=== PATIENT | female | born 1945 | race Caucasian/White ===

== ENCOUNTER → 2016-07-13 | Day surgery (SDC) | payer OTHER ==
[~2016-07-13] VITALS: Ht 165.1 cm; Wt 122.7 kg
[~2016-07-13] MED LIST: ASPI81TA28 PO; CARV25TA2 PO; CHOL20005 PO; DOCU100C PO; FENTANYL CITRATE INJ 50 MCG/1 ML 2 ML VIAL ONE; FRS/40 PO; GLC/500 PO; HEPARIN SOD (PORCINE) 1000 UNIT/ML 10 ML VIAL ONE; IPRA1AER2 INH; LORC1TAB PO; LOSA50TA54 PO; MIDAZOLAM HCL 1 MG/ML 2ML VIAL ONE; NITROGLYCERIN/D5W 100MCG/ML 20ML SYR ONE; NiCARDipine HCL INJ 2.5 MG/ML 10 ML AMP ONE; OXYC-643 PO; PRM625 PO; RANI300T2 PO; SERT1TAB68 PO; SIMV10TA5 PO; TRAM-10 PO; TRAZ50TA35 PO; TURM500T PO; VERA1TAB52 PO
[2016-07-13 07:14] VITALS: BP 125/75; PULSE 67; TEMP 36.6; O2SAT 96; Ht 165.1 cm; Wt 122.7 kg
--- NOTE | 2016-07-13 08:04 | Procedure Note ---
Pre-Mod Sedation Assessment General Date of Moderate Sedation: Jul 13, 2016. Vital Signs: Vital Signs Past 12 Hours Date Time Temp Pulse Resp B/P Pulse Ox O2 Delivery O2 Flow Rate FiO2 07/13/16 07:14 36.6 67 16 125/75 96 Room Air Review Cardiovascular: regular rate, rhythm, no JVD, + pertinent finding (1+ edema, left > right) Abdomen: normal bowel sounds, non tender, soft Lungs: chest non-tender, lungs clear Airway Class: III Pre-Sedation Airway Assessment Oral Cavity: WNL Able to Visualize Vocal Cords: No Short Thick Neck: No Hx of Sleep Apnea: No Smoking Status: Never Smoker Mallampati Classification: Class III ASA Classification: Class II Procedure Planning Contraindications-for Mod Sed: None Yes Notes The planned sedation has been discussed with the patient and consent obtained. I have identified the patient, determined the appropriateness of sedation and have assessed the patient immediately prior to the procedure. All medicine(s) and interventions are by my order.
--- NOTE | 2016-07-13 08:44 | Procedure Note ---
Post-Mod Sedation Assessment General Date of Moderate Sedation Jul 13, 2016. Vital Signs: Vital Signs Past 12 Hours Date Time Temp Pulse Resp B/P Pulse Ox O2 Delivery O2 Flow Rate FiO2 07/13/16 07:14 36.6 67 16 125/75 96 Room Air Review - Discharge Criteria Vital Signs Stable: Yes Alert/Oriented/Conversant: Yes Returned to Baseline Mental St: Yes Nausea Absent/Minimal: Yes Pain/Discomfort/Absent/Minimal: Yes Normal/Baseline Respirations: Yes Active Bleeding?: No Pt Received D/C Instructions: N/A Prescriptions Given: None Specific Proced. D/C Criteria Distal Pulses Present (Cardiac: Yes Groin site assessed-Card Cath: N/A Voided Prior To Discharge: N/A Discharged Patients Adult Escort/Transportation: Yes
--- NOTE | 2016-07-13 08:49 | Discharge Instructions ---
Discharge Instructions Procedure Procedure Date: Jul 13, 2016. Reason for Visit: Abnormal Stress Test. Discharge Discharge Date: Jul 13, 2016. Discharge Diagnosis: Normal coronary arteries Diastolic dysfunction. Last Recorded Wt (Kilograms): 122.7 Medications Stopped Medication(s): Hold Metformin for 48 hrs Anesthesia Post Anesthesia Instructions: With IV Sedation: * Do not drive today. * Can resume driving tomorrow * Do not make important decisions or sign legal documents today. * Call business services specialist sales for: 1. Temperature elevations greater than 101 degrees F. 2. Uncontrollable pain. 3. Excessive bleeding. 4. Persistent nausea and vomiting. 5. Medication intolerance (nausea, vomiting or rash). * For nausea and vomiting use only clear liquids such as: tea, soda, bouillon until nausea subsides, then gradually increase diet as tolerated. * If you have any concerns or questions, call your business services specialist sales's office. If physician is unavailable and it is an emergency, call 911 or go to the nearest emergency room. Instructions Activity Recommendations: limitations as noted below Recommended Home Diet: resume previous diet Allergies: Coded Allergies: Celecoxib (Unverified Allergy, Mild, constant chest pain, 08/14/10) Chlorhexidine (Unverified Allergy, Mild, red rash and itching, 08/14/10) Pineapple (Unverified Allergy, Unknown, RESPIRATORY DISTRESS, 07/15/10) Uncoded Allergies: ANANASE (Allergy, Unknown, RESPIRATORY DISTRESS, 07/15/10) RUG GLUE (Allergy, Unknown, ANAPHYLATIC SHOCK, 07/15/10) Follow Up Additional Instructions: ACTIVITY RECOMMENDATIONS: It is common to feel weak and fatigue for a few days. * Do not drive or operate any motorized equipment for the next three days. * Limit stair usage (2 or 3 trips a day only) for the next three days. * Do not lift anything heavier than 10 pounds for the next three days. * Do not engage in vigorous exercise or any sports for the next five days. * You may shower the day after your procedure, but do not immerse the area for three days. Cleanse the site gently with soap and water. SPECIAL CARE INSTRUCTIONS: * You may replace the pressure dressing or band-aid the morning after the procedure. * After your procedure, it is normal to have a small bruise or small lump at the site. Examine your site daily for any change in the bruise or lump, redness, swelling, drainage or numbness. Notify your doctor if any change. BLEEDING: * If there is a small amount of bleeding at the site, lie down and apply firm pressure with a clean cloth for ten minutes. When the bleeding stops, lie quietly keeping the procedure limb straight for six hours. Notify your doctor as soon as possible. * If the bleeding does not stop after ten minutes or if there is a large amount of bleeding or spurting, call 911 immediately. Continue to lie down and hold firm pressure until help arrives. SKIN IRRITATION: * You may experience some redness and/or swelling in the area where radiation was administered. If any skin irritation occurs, please contact your family physician. FOLLOW UP VISIT: Keep any scheduled doctor appointments. Follow-up with: Scheduled follow-up with Dr. Zach Driver Recommendations: Call your doctor if: * Temperature above 101 degrees * Pain not relieved by pain medicine ordered * There is increased drainage or redness from any incision * You have any unanswered questions or concerns. Your Doctors Instructions noted above were prepared by provider Phoenix Serrano. Patient Signature Section: Patient Instructions Signature Page Jill Rizo Patient (or Guardian) Signature/Date: I have read and understand the instructions given to me by my caregivers. Caregiver/RN/Doctor Signature/Date: The above-named patient and/or guardian has received patient instructions on this date. + Original Patient Signature Page (only) stays with chart. Please make copy for patient.
--- NOTE | 2016-07-13 09:19 | Cardiac Catheterization ---
Procedure Note Procedure Date Jul 13, 2016. Pre-Procedure Diagnosis Positive Stress Test AUC Score 7 Post-Procedure Diagnosis Normal Coronary Arteries Procedure(s) Performed Coronary Angiography, Left Heart Cath Torch Burner Dr. Serrano Youth Minister(s) Santana Estimated Blood Loss 15 Medication(s) Fentanyl, Heparin, Nitroglycerin, Versed, Lidocaine 1% Summary of Findings Indication: Atypical chest pain, positive stress test Access: 6Fr Slender sheath Catheters: Willis, JL3.5, Pigtail Findings: LM - Normal LAD - Medium caliber vessel with distal luminal irregularities before reaching apex Circumflex - Medium caliber vessel, tortuous, otherwise angiographically normal RCA - Dominant, large caliber vessel with only luminal irregularities LVEDP - 22 LVEF - 50-55%. No regional wall motion abnormalities, LVH. Heart almost "spade " shaped. Arterial Closure: TR Band Summary: 1. Angiographically normal coronary arteries 2. Normal LV systolic function. LVEF 50-55%. Diastolic dysfunction. Recommendations: Continue home antihypertensives Continue PRN diuretics - dose of lasix today. Continued risk factor modification Further evaluation with PCP for non-cardiac causes of current symptoms. Hemodynamics Rest Ao: 136/78 Final Ao: 150/74 LV: 147/22 Specimens None Radiation Exposure (mGy) 465 Contrast (mls) 60 Fluids (cc crystalloids) 40 Drains none Anesthesia moderate Procedural Complication(s) None Disposition Spice Grinder Holding/Recovery ACC Data Cardiac Status Clinical evaluation leading to the procedure CAD Presntation: Positive Stress Test Anginal Classification: CCS III Heart Failure: No, NYHA Class: CCS I Cardiogenic Shock w/in 24Hrs: No Cardiac Arrest w/in 24Hrs: No Imaging studies past 6 months: Yes Stress studies past 6 months: Yes Stress Echocardiogram: Yes - Positive Stress Testing w/SPECT MPI: No Cardiac CTA: No Coronary Anatomy Dominant: Right Left Main (% Stenosis): Normal LAD (% Stenosis): Normal Circumflex (% Stenosis): Normal RCA (% Stenosis): Normal R PDA (% Stenosis): Normal R PL1 (% Stenosis): Normal Left Ventricular Angiography EF (%): 50 Mitral Regurgitation: None Aortography Aortic Regurgitation: None Diagnostic Physician's Name: Janes Serrano MD Closure Device Percutaneous Entry Location: Radial Closure Device: Radial Band Recommendations: Medical therapy and/or Counseling Intraprocedure Events Significant Dissection: No Perforation: No
[2016-07-13 10:50] VITALS: BP 138/66; PULSE 70; O2SAT 95
== END | disposition home or self-care (01) ==
LOC: C.CATH 06:59
PROVIDERS: ATTEND Internal Medicine Interventional Cardiology
DX: R94.39 Abnormal result of other cardiovascular function study (principal); R07.89 Other chest pain; I42.9 Cardiomyopathy, unspecified; I12.9 Hypertensive chronic kidney disease with stage 1 through stage 4 chronic kidney disease, or unspecified chronic kidney disease; N18.9 Chronic kidney disease, unspecified; I67.82 Cerebral ischemia; E78.5 Hyperlipidemia, unspecified; K21.9 Gastro-esophageal reflux disease without esophagitis; G35 Multiple sclerosis; M35.00 Sjogren syndrome, unspecified; E55.9 Vitamin D deficiency, unspecified; Z98.890 Other specified postprocedural states; Z90.710 Acquired absence of both cervix and uterus

== ENCOUNTER 2017-06-01 15:47 | Inpatient (IN) | payer OTHER ==
[2017-06-01] VITALS (15 sets, daily range): BP systolic 99–149; BP diastolic 59–80; PULSE 80–88; TEMP 36.5–36.9; O2SAT 96–100; BMI 46.1
[~2017-06-01] VITALS: Ht 170.2 cm; Wt 128.8 kg
[~2017-06-01 15:47] MED LIST changes: -FENTANYL CITRATE INJ 50 MCG/1 ML 2 ML VIAL ONE; -HEPARIN SOD (PORCINE) 1000 UNIT/ML 10 ML VIAL ONE; -IPRA1AER2 INH; -LORC1TAB PO; -MIDAZOLAM HCL 1 MG/ML 2ML VIAL ONE; -NITROGLYCERIN/D5W 100MCG/ML 20ML SYR ONE; -NiCARDipine HCL INJ 2.5 MG/ML 10 ML AMP ONE; -VERA1TAB52 PO
[2017-06-01] MEDS ORDERED: SODIUM CHLORIDE 0.9% 1000ML 1,000 ML IV STA (16:04)
[2017-06-01] MEDS ORDERED: DOPamine 400MG / 250ML D5W ONE (16:07)
[2017-06-01] MEDS ORDERED: DOPAMINE 400MG / D5W IV PRN (16:15)
[2017-06-01] MEDS ORDERED: RAPID SEQUENCE INDUCTION BAG ONE (16:18)
[2017-06-01 16:23] LABS: BASO % 0.9 %; BASO ABS # 0.08 K/uL (0-0.2); EOS ABS # 0.34 K/uL (0-0.5); HEMATOCRIT 40.7 % (37-47); HEMOGLOBIN 13.1 g/dL (12.0-16.0); IG# 0.01 K/uL (0.00-0.02); LYMPH % 19.1 %; LYMPH ABS # 1.62 K/uL (1.2-3.4); MEAN CELL VOLUME 95.5 fL (80-100); MEAN CORPUSCULAR HEMOGLOBIN 30.8 pg (25-34); MEAN CORPUSCULAR HGB CONC 32.2 g/dl (32-36); MEAN PLATELET VOLUME 10.1 fL (7.4-10.4); MONO % 7.9 %; MONO ABS # 0.67 K/uL (0.11-0.59); NEUT ABS # 5.78 K/uL (1.4-6.5); PLATELET COUNT 209 K/uL (130-400); RED CELL DISTRIBUTION WIDTH CV 14.3 % (11.5-14.5); RED CELL DISTRIBUTION WIDTH SD 49.7 fL (36.4-46.3)
[2017-06-01] MEDS ORDERED: CALCIUM GLUCONATE 10% 10 ML VIAL IV ONE (16:23)
[2017-06-01] MEDS ORDERED: FENTANYL CITRATE INJ 50 MCG/1 ML 2 ML VIAL ONE ×2 (16:26→16:53)
[2017-06-01] MEDS ORDERED: MIDAZOLAM HCL 1 MG/ML 2ML VIAL ONE (16:26)
[2017-06-01 16:44] LABS: BLOOD UREA NITROGEN 25 mg/dl (7-18); CALCIUM 9.7 mg/dl (8.5-10.1); CARBON DIOXIDE 25 mmol/L (21-32); CREATININE 1.69 mg/dl (0.60-1.20); GLUCOSE 136 mg/dl (70-99); POTASSIUM 4.4 mmol/L (3.5-5.1); SODIUM 141 mmol/L (136-145)
[2017-06-01 16:49] LABS: CKMB 1.2 ng/ml (0.5-3.6)
--- NOTE | 2017-06-01 16:56 | DIAGNOSTIC IMAGING REPORT ---
CHEST ONE VIEW PORTABLE CLINICAL HISTORY: Chest Pain dyspnea COMPARISON STUDY: 10/21/2014 FINDINGS: Endotracheal tube positioned 4 cm above the germaine. Slight bronchovascular prominence. No pneumothorax. No focal infiltrate. Mild cardiomegaly. IMPRESSION: Endotracheal tube 4 cm both germaine. Mild prominence of pulmonary vasculature. The above report was generated using voice recognition software. It may contain grammatical, syntax or spelling errors. Electronically signed by: Shree Aguirre M.D. 06/01/2017 4:55 PM Dictated Date/Time: 06/01/2017 4:54 PM
[2017-06-01] MEDS ORDERED: MIDAZOLAM 125MG/250ML D5W 250 ML IV PRN (17:00)
--- NOTE | 2017-06-01 17:13 | Cardiology Consultation ---
Cardiology Consultation Date of Consultation: Jun 01, 2017. Reason for Consultation: Complete heart block Pt evaluation today including: conversation w/ patient, physical exam, lab review, review of studies, conversation w/ attending History of Present Illness This is a 72-year-old woman who has a history of nonischemic cardiomyopathy diagnosed in 2007 with a catheterization showing normal coronary arteries in July 2016. Her ejection fraction improved with medical therapy, at catheterization July 2016 it was felt to be 50-55%. In addition she has a left lower extremity DVT and hematology has recommended lifelong anticoagulation. She is therefore been maintained on eliquis and losartan. She has been maintained on carvedilol 25 mg twice a day as well as Eliquis. Today she began to feel very weak and short of breath while walking, had to sit down and was brought to the emergency room. In the emergency room she was found to be in complete heart block with a heart rate in the 20s. The heart rate did not respond well to dopamine, she was also hypotensive with a blood pressure initially in the 60s which did improve somewhat with dopamine. She was conscious at that time although did not feel well, however she had episode of asystole in the emergency room and external pacing was applied. She is very uncomfortable with external pacing but regained consciousness quickly. The temporary external pacing was stopped and she again began to become unresponsive. It was therefore restarted, she is intubated and sedated. Prior to intubation and while she was awake she agreed to have temporary pacing performed and seemed aware of the procedure. There was no family available and this is considered an emergency procedure. She was therefore taken to the laboratory equipment cleaner for temporary pacing. Past Medical/Surgical History Nonischemic cardiomyopathy Obesity Left leg DVT Social History Smoking Status: Never Smoker History of Alcohol Use: No Review of Systems Constitutional: No fever, No weight loss, No weakness Respiratory: + dyspnea on exertion, No cough, No wheezing, No shortness of breath Cardiac: + see HPI, + problem reported (extreme weakness and fatigue), No chest pain, No orthopnea, No PND, No edema, No palpitations Abdomen: No pain, No nausea, No vomiting, No diarrhea, No GI bleeding Female : No problem reported Neurologic: No paralysis, No numbness/tingling, No balance problems Heme: No abnormal bleeding/bruising, No clotting problems Endo: No fatigue Skin: No problem reported All Other Systems: Reviewed and Negative Allergies Coded Allergies: Celecoxib (Unverified Allergy, Mild, constant chest pain, 08/14/10) Chlorhexidine (Unverified Allergy, Mild, red rash and itching, 08/14/10) Pineapple (Unverified Allergy, Unknown, RESPIRATORY DISTRESS, 07/15/10) Uncoded Allergies: ANANASE (Allergy, Unknown, RESPIRATORY DISTRESS, 07/15/10) RUG GLUE (Allergy, Unknown, ANAPHYLATIC SHOCK, 07/15/10) Medications Current Inpatient Medications Medications (Trade) Dose Ordered Sig/Zac Route Start Time Stop Time Status Last Admin Dose Admin Dopamine HCl/ Dextrose 250 ml @ 0 mls/hr Q0M PRN IV 06/01/17 16:15 07/01/17 16:14 Midazolam HCl 250 ml @ 0 mls/hr Q0M PRN IV 06/01/17 17:00 07/01/17 16:59 Physical Exam Vital Signs Past 12 Hours Date Time Temp Pulse Resp B/P (MAP) Pulse Ox O2 Delivery O2 Flow Rate FiO2 06/01/17 17:01 100 06/01/17 16:17 69 06/01/17 15:58 27 Constitutional: General Apperance: obese Level of Distress: acutely ill Psychiatric: Mental Status: anxious Head: normocephalic Eyes: EOM: EOMI ENMT: normal ENT inspection, hearing grossly normal Neck: supple, no masses Lungs: Respiratory effort: no dyspnea, good air movement Auscultation: breath sounds normal, no wheezing Cardiovascular: Heart Auscultation: RRR, no murmurs, no rubs, no gallops Peripheral Pulses: Bruits: none appreciated Abdomen: Bowel Sounds: normal Inspection & Palpation: soft, no tenderness, guarding & rebound, no masses Musculoskeletal: normal strength (5/5 throughout) Extremities: no edema Neurologic: Cranial Nerves: grossly intact Sensation: grossly intact Data Laboratory Results: Last 24 Hours Test 06/01/17 16:05 White Blood Count 8.50 K/uL Red Blood Count 4.26 M/uL Hemoglobin 13.1 g/dL Hematocrit 40.7 % Mean Corpuscular Volume 95.5 fL Mean Corpuscular Hemoglobin 30.8 pg Mean Corpuscular Hemoglobin Concent 32.2 g/dl Platelet Count 209 K/uL Mean Platelet Volume 10.1 fL Neutrophils (%) (Auto) 68.0 % Lymphocytes (%) (Auto) 19.1 % Monocytes (%) (Auto) 7.9 % Eosinophils (%) (Auto) 4.0 % Basophils (%) (Auto) 0.9 % Neutrophils # (Auto) 5.78 K/uL Lymphocytes # (Auto) 1.62 K/uL Monocytes # (Auto) 0.67 K/uL Eosinophils # (Auto) 0.34 K/uL Basophils # (Auto) 0.08 K/uL RDW Standard Deviation 49.7 fL RDW Coefficient of Variation 14.3 % Immature Granulocyte % (Auto) 0.1 % Immature Granulocyte # (Auto) 0.01 K/uL Sodium Level 141 mmol/L Potassium Level 4.4 mmol/L Chloride Level 109 mmol/L Carbon Dioxide Level 25 mmol/L Anion Gap 7.0 mmol/L Blood Urea Nitrogen 25 mg/dl Creatinine 1.69 mg/dl Estimated GFR () 34.8 Estimated GFR (Non- 30.0 BUN/Creatinine Ratio 14.7 Random Glucose 136 mg/dl Calcium Level 9.7 mg/dl Total Creatine Kinase 48 U/L Creatine Kinase MB 1.2 ng/ml Creatine Kinase MB Ratio 2.5 Troponin I < 0.015 ng/ml EKG: An electrocardiogram on arrival 06/01/2017 at 1600 shows sinus rhythm at 85 bpm with complete heart block and a ventricular rhythm at 28 bpm. This appears to be subcutaneous junctional with a right bundle branch pattern and left anterior fascicular block. Assessment & Plan #1. 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 It is possible CHB is aggravated by beta-blockade but she has been on the same dose for a long time. I would hold beta-blockade with a temporary pacemaker in place and see whether conduction returns. If it does a decision last he made as to whether she needs a beta-blockade for cardiomyopathy or not. If it does not resolve then she will need a permanent pacemaker. #2. Cardiomyopathy: As of July of this year her cardiomyopathy has resolved with normalization of her ejection fraction. She had normal coronary arteries at catheterization. Ideally we would maintain beta blockade and ARB therapy, if we're required to hold beta-blockade will have to watch closely for recurrence of her cardiomyopathy. If she needs a pacemaker then I would continue the beta- blockade. Thank you for allowing me to participate in her care.
--- NOTE | 2017-06-01 17:39 | History and Physical ---
History & Physical Date & Time of Service: Jun 01, 2017 at 17:39 . Chief Complaint: Complete Heart Block Primary Care Physician: Maryjo Hernandez M.D. History of Present Illness Source: hospital records 72 year-old female followed by Dr. Hernandez. History of nonischemic cardiomyopathy, hypertension, DM, and other problems noted below. Per history from ED provider: Developed lightheadedness, generalized weakness, diaphoresis, palpitations earlier today. Pulse at home was 24 per patient's assessment; she was unable to obtain a BP. Brought to ED for evaluation. Pulse rate upon arrival was in the 20's and BP was 62/40. EKG demonstrated 3rd degree heart block. Started on dopamine without significant improvement. External pacemaker applied, but extremely uncomfortable and had to be discontinued. Cardiology consulted for emergency pacemaker placement. Patient was intubated in ED before being taken to minilab operator for temporary pacemaker insertion. Temporary pacemaker inserted via right femoral approach with good capture. Admitted to ICU after procedure. Extubated soon after arrival to ICU by cake icer. . Past Medical/Surgical History Chronic and Resolved Medical Problems: (1) Cardiomyopathy, nonischemic Status: Chronic (2) Diabetes mellitus, type 2 Status: Chronic (3) Dyslipidemia Status: Chronic (4) GERD (gastroesophageal reflux disease) Status: Chronic (5) History of deep venous thrombosis Status: Chronic (6) Hypertension Status: Chronic (7) Multiple sclerosis Status: Chronic Surgical Problems: (1) History of bowel resection Status: Chronic (2) Status post cardiac catheterization Permanent Comment: 07/13/[address] [facility] [address] Serrano - normal coronaries Status: Chronic (3) Status post hysterectomy Status: Chronic (4) Status post left hip replacement Status: Chronic . Family History FATHER Coronary artery disease MOTHER CHF (congestive heart failure) Social History Smoking Status: Unknown if Ever Smoked Immunizations History of Influenza Vaccine: Unknown History of Tetanus Vaccine?: Unknown History of Pneumococcal: Unknown History of Hepatitis B Vaccine: Unknown Allergies Coded Allergies: Celecoxib (Unverified Allergy, Mild, constant chest pain, 08/14/10) Chlorhexidine (Unverified Allergy, Mild, red rash and itching, 08/14/10) Pineapple (Unverified Allergy, Unknown, RESPIRATORY DISTRESS, 07/15/10) Uncoded Allergies: ANANASE (Allergy, Unknown, RESPIRATORY DISTRESS, 07/15/10) RUG GLUE (Allergy, Unknown, ANAPHYLATIC SHOCK, 07/15/10) Home Medications Scheduled Amoxicillin (Amoxil), 500 MG PO DIRECTED Apixaban (Eliquis), 2.5 MG PO BID Carvedilol (Coreg), 25 MG PO BID Cholecalciferol (Vitamin D3), 1,000 INTER.UNIT PO DAILY Isosorbide Mononitrate Ext Rel (Imdur Ext Rel), 30 MG PO DAILY Losartan Potassium (Cozaar), 50 MG PO DAILY Metformin Hcl (Glucophage), 500 MG PO BID Prednisolone Acetate (Prednisolone Acetate), 1 DROP OPB DAILY Ranitidine (Zantac), 150 MG PO BID Sertraline Hcl (Zoloft), 100 MG PO QAM Simvastatin (Zocor), 10 MG PO HS Turmeric (Curcuma Longa) (Turmeric), 1 CAP PO DAILY Scheduled PRN Artificial Tear Solution (Artificial Tears), 1 DROPS OP QID PRN for PRN Docusate Sodium (Stool Softener), 200 MG PO DAILY PRN for Constipation Oxycodone/Acetaminophen 5MG/325MG (Oxycodone/Acetaminophen 5MG/325MG), 0.5-1 TABLET PO TID PRN for Pain Tramadol (Ultram), 100 MG PO QID PRN for Pain Trazodone Hcl (Trazodone), 25 MG PO HS PRN for Insomnia Review of Systems Unable to obtain review of systems due to patient's condition. . Physical Exam Vital Signs Date Time Temp Pulse Resp B/P (MAP) Pulse Ox O2 Delivery O2 Flow Rate FiO2 06/01/17 17:23 80 12 149/72 (97) 100 Mechanical Ventilator 100 06/01/17 17:10 80 12 140/72 (94) 100 Mechanical Ventilator 100 06/01/17 17:01 100 06/01/17 16:45 59 18 97 Mechanical Ventilator 06/01/17 16:43 131/50 95 Mechanical Ventilator 06/01/17 16:40 64 10 93 Mechanical Ventilator 06/01/17 16:35 60 17 85 Mechanical Ventilator 06/01/17 16:30 27 10 06/01/17 16:25 60 12 06/01/17 16:24 0 3 06/01/17 16:22 121/32 95 Non-Rebreather 06/01/17 16:20 60 12 06/01/17 16:17 69 06/01/17 16:15 25 14 98 Nasal Cannula 2.0 06/01/17 16:10 27 14 62/55 96 Nasal Cannula 2.0 06/01/17 16:05 27 13 62/50 97 Nasal Cannula 2.0 06/01/17 16:00 93 Room Air 06/01/17 16:00 28 13 60/40 98 Nasal Cannula 2.0 06/01/17 16:00 36.5 20 16 62/40 93 Nasal Cannula 2.0 06/01/17 15:58 27 General Appearance: + mild distress Head: normocephalic, atraumatic Eyes: PERRL, EOMI, sclerae normal, + pertinent finding (conjunctivae clear) ENT: normal ENT inspection, hearing grossly normal Neck: supple, no adenopathy, thyroid normal, no JVD Respiratory/Chest: lungs clear, no respiratory distress, no accessory muscle use Cardiovascular: regular rate, rhythm, no gallop, no JVD, no murmur, + pertinent finding (trace pretibial edema) Abdomen/GI: normal bowel sounds, non tender, soft, no organomegaly Extremities/Musculoskelatal: + pertinent finding (RLE immobilized) Neurologic/Psych: + pertinent finding (sedated; followed simple commands; PERRL , EOMI; moves all 4 extremities) Skin: normal color, warm/dry, no rash Lymphatic: no adenopathy (cervical) Diagnostics Laboratory Results Results Past 24 Hours Test 06/01/17 16:05 Range/Units White Blood Count 8.50 4.8-10.8 K/uL Red Blood Count 4.26 4.2-5.4 M/uL Hemoglobin 13.1 12.0-16.0 g/dL Hematocrit 40.7 37-47 % Mean Corpuscular Volume 95.5 80-100 fL Mean Corpuscular Hemoglobin 30.8 25-34 pg Mean Corpuscular Hemoglobin Concent 32.2 32-36 g/dl Platelet Count 209 130-400 K/uL Mean Platelet Volume 10.1 7.4-10.4 fL Neutrophils (%) (Auto) 68.0 % Lymphocytes (%) (Auto) 19.1 % Monocytes (%) (Auto) 7.9 % Eosinophils (%) (Auto) 4.0 % Basophils (%) (Auto) 0.9 % Neutrophils # (Auto) 5.78 1.4-6.5 K/uL Lymphocytes # (Auto) 1.62 1.2-3.4 K/uL Monocytes # (Auto) 0.67 0.11-0.59 K/uL Eosinophils # (Auto) 0.34 0-0.5 K/uL Basophils # (Auto) 0.08 0-0.2 K/uL RDW Standard Deviation 49.7 36.4-46.3 fL RDW Coefficient of Variation 14.3 11.5-14.5 % Immature Granulocyte % (Auto) 0.1 % Immature Granulocyte # (Auto) 0.01 0.00-0.02 K/uL Sodium Level 141 136-145 mmol/L Potassium Level 4.4 3.5-5.1 mmol/L Chloride Level 109 98-107 mmol/L Carbon Dioxide Level 25 21-32 mmol/L Anion Gap 7.0 3-11 mmol/L Blood Urea Nitrogen 25 7-18 mg/dl Creatinine 1.69 0.60-1.20 mg/dl Estimated GFR () 34.8 Estimated GFR (Non- 30.0 BUN/Creatinine Ratio 14.7 10-20 Random Glucose 136 70-99 mg/dl Calcium Level 9.7 8.5-10.1 mg/dl Total Creatine Kinase 48 26-192 U/L Creatine Kinase MB 1.2 0.5-3.6 ng/ml Creatine Kinase MB Ratio 2.5 0-3.0 Troponin I < 0.015 0-0.045 ng/ml Diagnostic Radiology CHEST ONE VIEW PORTABLE FINDINGS: Endotracheal tube positioned 4 cm above the germaine. Slight bronchovascular prominence. No pneumothorax. No focal infiltrate. Mild cardiomegaly. IMPRESSION: Endotracheal tube 4 cm both germaine. Mild prominence of pulmonary vasculature. The above report was generated using voice recognition software. It may contain grammatical, syntax or spelling errors. Electronically signed by: Shree Aguirre M.D. 06/01/2017 4:55 PM Dictated Date/Time: 06/01/2017 4:54 PM . EKG EKG performed at 16:00 reviewed and demonstrated sinus rhythm with complete heart block and ventricular rate of 28 / minute, RBBB, left anterior fascicular block, poor R-wave progression. . Impression Assessment and Plan COMPLETE HEART BLOCK Emergent temporary pacemaker inserted by Cardiology. Underlying etiology to be determined. On carvedilol, but apparently no recent dose adjustment. Potassium normal. Check Lyme screen, TSH. Further management per Cardiology. NONISCHEMIC CARDIOMYOPATHY Cath 2017 showed normal coronaries. Carvedilol, losartan, nitrates held due to heart block and associated hypotension. Further management per Cardiology. HYPERTENSION Carvedilol, losartan, nitrates held due to heart block and associated hypotension. Follow and titrate therapy. CKD Serum creatinine 1.69 compared to 1.4 06/17/16. May have ATN secondary to heart block / hypotension. Follow. DM TYPE 2 Hold metformin. Check Hgb A1C. Glycemic management per protocol. GI PROPHYLAXIS IV pantoprazole until able to take oral meds. VTE PROPHYLAXIS History of DVT on chronic anticoagulation with apixaban. Hold anticoagulants pending decisions regarding permanent pacemaker. SCD's. DISPOSITION Admitted to ICU. Expected discharge to home. Internal Medicine follow-up with Dr. Hernandez . VTE Prophylaxis VTE Risk Assessment Done? Y/N: Yes Risk Level: Moderate Given or contraindicated: SCD's
[2017-06-01] MEDS ORDERED: ARTISOL12 OP (17:41)
[2017-06-01] MEDS ORDERED: ISOS30TA35 PO (17:41)
[2017-06-01] MEDS ORDERED: AMOX500C3 PO (17:41)
[2017-06-01] MEDS ORDERED: PRDFOPS OPB (17:41)
[2017-06-01] MEDS ORDERED: OXYC-57 PO (17:41)
[2017-06-01] MEDS ORDERED: APIX1TAB PO (17:41)
--- NOTE | 2017-06-01 17:42 | Cardiac Catheterization ---
Procedure Note Procedure Date Jun 01, 2017. 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 Decision made to proceed with transvenous temporary pacemaker - Ultrasound guided access of right CFV with 6Fr sheath. - Temporary pacemaker guided to RV under fluoroscopic guidance. - Adequate capture noted down to < 1 mA. - Back-up pacing left at VVI 80 bpm, 10mA. - Sheath sutured in place. Knee immobilizer placed. Summary: 1. Successful transvenous temporary pacemaker placement via right CFV. Hemodynamics Rest Ao: -- Final Ao: -- LV: -- Recommendations management recommendations (Temporary pacemaker.) Specimens None Radiation Exposure (mGy) 164 Contrast (mls) None Fluids (cc crystalloids) 50 Drains None Anesthesia Intubated, sedated Procedural Complication(s) None Disposition ICU ACC Data Cardiac Status Clinical evaluation leading to the procedure CAD Presntation: Sx unlikely to be ischemic Cardiogenic Shock w/in 24Hrs: No Cardiac Arrest w/in 24Hrs: Yes Imaging studies past 6 months: No Stress studies past 6 months: No Intraprocedure Events Significant Dissection: No Perforation: No
[2017-06-01] MEDS ORDERED: ICU PROTOCOL FOR HYPERGLYCEMIA PRN (17:45)
[2017-06-01] MEDS ORDERED: NURSING VERBAL MED ORDER ONE (20:15)
[2017-06-01] MEDS: NORMOSOL R 1,000 ML IV SCH (20:22)
[2017-06-01] MEDS ORDERED: TRAMADOL HCL 50 MG TAB PO ONE (22:30)
--- NOTE | 2017-06-01 22:30 | EMERGENCY ROOM VISIT NOTE ---
History Report prepared by Ruddy: Cathie Justice Under the Supervision of: Dr. Prashanth Santoyo D.O. First contact with patient: 15:33 Chief Complaint: CARDIAC ASSESSMENT Stated Complaint: CARDIAC SX History of Present Illness The patient is a 72 year old female who presents to the Emergency Room for a cardiac assessment. The patient states that she started having chest pain 1.5 hours ago. She states that she was walking into her 's room when she felt dizzy, diaphoretic, weak, and fell. She states that it felt like her heart was coming out of her chest. She reports that she took her pulse at home and it was 24 bpm. She reports that she tried to get her blood pressure, but it wouldn' t read it. She states that on the way here she became nauseous. The patient states that she currently has a headache. She states that she feels better than she did when it first came on. The patient denies vomiting, cough, runny nose, sore throat, and being bitten by a tick recently. The patient notes that she takes Eliquis and Losartan. Source of History: patient Onset: 1.5 hours ago Position: chest Quality: other (heart beating out of her chest) Timing: other (episode) Associated Symptoms: + headache, + diaphoresis, + nausea, + weakness, No sorethroat, No cough, No vomiting Note: The patient complains fo dizziness. The patient denies runny nose. Review of Systems See HPI for pertinent positives & negatives. A total of 10 systems reviewed and were otherwise negative. Past Medical & Surgical Medical Problems: (1) Complete heart block Family History No pertinent family history Social History Marital Status: Housing Status: lives with significant other Occupation Status: retired Current/Historical Medications Scheduled Amoxicillin (Amoxil), 500 MG PO DIRECTED Apixaban (Eliquis), 2.5 MG PO BID Carvedilol (Coreg), 25 MG PO BID Cholecalciferol (Vitamin D3), 1,000 INTER.UNIT PO DAILY Isosorbide Mononitrate Ext Rel (Imdur Ext Rel), 30 MG PO DAILY Losartan Potassium (Cozaar), 50 MG PO DAILY Metformin Hcl (Glucophage), 500 MG PO BID Prednisolone Acetate (Prednisolone Acetate), 1 DROP OPB DAILY Ranitidine (Zantac), 150 MG PO BID Sertraline Hcl (Zoloft), 100 MG PO QAM Simvastatin (Zocor), 10 MG PO HS Turmeric (Curcuma Longa) (Turmeric), 1 CAP PO DAILY Scheduled PRN Artificial Tear Solution (Artificial Tears), 1 DROPS OP QID PRN for PRN Docusate Sodium (Stool Softener), 200 MG PO DAILY PRN for Constipation Oxycodone/Acetaminophen 5MG/325MG (Oxycodone/Acetaminophen 5MG/325MG), 0.5-1 TABLET PO TID PRN for Pain Tramadol (Ultram), 100 MG PO QID PRN for Pain Trazodone Hcl (Trazodone), 25 MG PO HS PRN for Insomnia Allergies Coded Allergies: Celecoxib (Unverified Allergy, Mild, constant chest pain, 08/14/10) Chlorhexidine (Unverified Allergy, Mild, red rash and itching, 08/14/10) Pineapple (Unverified Allergy, Unknown, RESPIRATORY DISTRESS, 07/15/10) Uncoded Allergies: ANANASE (Allergy, Unknown, RESPIRATORY DISTRESS, 07/15/10) RUG GLUE (Allergy, Unknown, ANAPHYLATIC SHOCK, 07/15/10) Physical Exam Vital Signs Date Time Temp Pulse Resp B/P (MAP) Pulse Ox O2 Delivery O2 Flow Rate FiO2 06/01/17 17:23 80 12 149/72 (97) 100 Mechanical Ventilator 100 06/01/17 17:10 80 12 140/72 (94) 100 Mechanical Ventilator 100 06/01/17 17:01 100 06/01/17 16:45 59 18 97 Mechanical Ventilator 06/01/17 16:43 131/50 95 Mechanical Ventilator 06/01/17 16:40 64 10 93 Mechanical Ventilator 06/01/17 16:35 60 17 85 Mechanical Ventilator 06/01/17 16:30 27 10 06/01/17 16:25 60 12 06/01/17 16:24 0 3 06/01/17 16:22 121/32 95 Non-Rebreather 06/01/17 16:20 60 12 06/01/17 16:17 69 06/01/17 16:15 25 14 98 Nasal Cannula 2.0 06/01/17 16:10 27 14 62/55 96 Nasal Cannula 2.0 06/01/17 16:05 27 13 62/50 97 Nasal Cannula 2.0 06/01/17 16:00 93 Room Air 06/01/17 16:00 28 13 60/40 98 Nasal Cannula 2.0 06/01/17 16:00 36.5 20 16 62/40 93 Nasal Cannula 2.0 06/01/17 15:58 27 Physical Exam GENERAL: Laying in bed, alert, ill appearing, well nourished, moderate distress EYE EXAM: normal conjunctiva. OROPHARYNX: no exudate, no erythema, lips, buccal mucosa, and tongue normal and mucous membranes are moist NECK: supple, no nuchal rigidity, no adenopathy, non-tender LUNGS: Diminished at the bases Normal chest wall mechanics HEART: Bradycardic, no murmur ABDOMEN: abdomen soft, non-tender, normo-active bowel sounds, no masses, no rebound or guarding. BACK: Back is symmetrical on inspection and there is no deformity, no midline tenderness, no CVA tenderness. SKIN: no rashes and no bruising UPPER EXTREMITIES: upper extremities are grossly normal. LOWER EXTREMITIES: No pitting edema. NEURO EXAM: Normal sensorium, cranial nerves II-XII grossly intact, normal speech, no gross weakness of arms, no gross weakness of legs. Medical Decision & Procedures ER Provider Diagnostic Interpretation: Radiology results as stated below per my review and the radiologist's interpretation: CHEST ONE VIEW PORTABLE CLINICAL HISTORY: Chest Pain dyspnea COMPARISON STUDY: 10/21/2014 FINDINGS: Endotracheal tube positioned 4 cm above the germaine. Slight bronchovascular prominence. No pneumothorax. No focal infiltrate. Mild cardiomegaly. IMPRESSION: Endotracheal tube 4 cm both germaine. Mild prominence of pulmonary vasculature. The above report was generated using voice recognition software. It may contain grammatical, syntax or spelling errors. Electronically signed by: Leila Aguirre M.D. 06/01/2017 4:55 PM Dictated Date/Time: 06/01/2017 4:54 PM Laboratory Results 06/01/17 16:05 Red Blood Count 4.26, Mean Corpuscular Volume 95.5, Mean Corpuscular Hemoglobin 30.8, Mean Corpuscular Hemoglobin Concent 32.2, Mean Platelet Volume 10.1, Neutrophils (%) (Auto) 68.0, Lymphocytes (%) (Auto) 19.1, Monocytes (%) (Auto) 7.9, Eosinophils (%) (Auto) 4.0, Basophils (%) (Auto) 0.9, Neutrophils # (Auto) 5.78, Lymphocytes # (Auto) 1.62, Monocytes # (Auto) 0.67, Eosinophils # (Auto) 0.34, Basophils # (Auto) 0.08 06/01/17 16:05 Test 06/01/17 16:05 White Blood Count 8.50 K/uL (4.8-10.8) Red Blood Count 4.26 M/uL (4.2-5.4) Hemoglobin 13.1 g/dL (12.0-16.0) Hematocrit 40.7 % (37-47) Mean Corpuscular Volume 95.5 fL (80-100) Mean Corpuscular Hemoglobin 30.8 pg (25-34) Mean Corpuscular Hemoglobin Concent 32.2 g/dl (32-36) Platelet Count 209 K/uL (130-400) Mean Platelet Volume 10.1 fL (7.4-10.4) Neutrophils (%) (Auto) 68.0 % Lymphocytes (%) (Auto) 19.1 % Monocytes (%) (Auto) 7.9 % Eosinophils (%) (Auto) 4.0 % Basophils (%) (Auto) 0.9 % Neutrophils # (Auto) 5.78 K/uL (1.4-6.5) Lymphocytes # (Auto) 1.62 K/uL (1.2-3.4) Monocytes # (Auto) 0.67 K/uL (0.11-0.59) Eosinophils # (Auto) 0.34 K/uL (0-0.5) Basophils # (Auto) 0.08 K/uL (0-0.2) RDW Standard Deviation 49.7 fL (36.4-46.3) RDW Coefficient of Variation 14.3 % (11.5-14.5) Immature Granulocyte % (Auto) 0.1 % Immature Granulocyte # (Auto) 0.01 K/uL (0.00-0.02) Anion Gap 7.0 mmol/L (3-11) Estimated GFR () 34.8 Estimated GFR (Non- 30.0 BUN/Creatinine Ratio 14.7 (10-20) Calcium Level 9.7 mg/dl (8.5-10.1) Total Creatine Kinase 48 U/L (26-192) Creatine Kinase MB 1.2 ng/ml (0.5-3.6) Creatine Kinase MB Ratio 2.5 (0-3.0) Troponin I < 0.015 ng/ml (0-0.045) Date/Time Source Procedure Growth Status 06/01/17 00:00 Nasal MRSA DNA Surveillance Screen - Final Specimen Negative for MRSA by DNA Probe Complete Laboratory results per my review. Medications Administered Medications (Trade) Dose Ordered Sig/Zac Route Start Time Stop Time Status Last Admin Dose Admin Sodium Chloride 1,000 ml @ 999 mls/hr Q1H1M STAT IV 06/01/17 16:04 06/01/17 17:04 DC 06/01/17 16:14 999 MLS/HR Dopamine HCl/ Dextrose (DOPamine 400MG / D5W) 400 mg STK-MED ONCE .ROUTE 06/01/17 16:07 06/01/17 16:08 DC 06/01/17 16:13 400 MG Miscellaneous (Rapid Sequence Induction Bag) 1 ea STK-MED ONCE N/A 06/01/17 16:18 06/01/17 16:19 DC 06/01/17 16:18 1 EA Calcium Gluconate (Calcium Gluconate 10%) 2,000 mg STK-MED ONCE IV 06/01/17 16:23 06/01/17 16:24 DC 06/01/17 17:03 2,000 MG Midazolam HCl (Versed Inj) 2 mg STK-MED ONCE .ROUTE 06/01/17 16:26 06/01/17 16:27 DC 06/01/17 17:03 2 MG Fentanyl Citrate (Fentanyl Inj) 100 mcg STK-MED ONCE .ROUTE 06/01/17 16:53 06/01/17 16:54 DC 06/01/17 16:53 100 MCG Procedure TRANSCUTANEOUS pacing Pads were applied in a standard fashion. Millivolts were increased to initially 70 at a rate of 60. This obtained capture with a good radial pulse. This was rechecked shortly thereafter and we had lost capture. At this point it was increased to 110 and they obtain good capture and a pressure. Systolic blood pressures were 130s with a heart rate in the 60s. EM PROCEDURE NOTE - Endotracheal Intubation PROCEDURE NOTE: Informed consent was obtained by the patient. Verify Correct Patient: yes Procedure: Endotracheal intubation Indication: Respiratory failure The procedure was done emergently. Description of the Procedure: The patient was seen and properly identified. The patient was pre-oxygenated and intubated after rapid sequence induction with meds: Succinylcholine and Ketamine. Intubation was performed using a glide scope blade and a cuffed endotracheal tube. The tube was visualized going through the cords and secured with the F4 22cm leila at the lips. The patient had good bilateral breath sounds in the axillae with good chest rise. Proper ET tube placement was confirmed by end tidal CO2 detector. The patient tolerated the procedure well. ECG Indication: chest pain Rate (beats per minute): 22 Rhythm: other (ventricular escape) Findings: complete heart block, left axis deviation Comparison ECG Date: REPEAT Change: Type 2 heart block, ventricular escape, 28 bpm, left axis deviation, RBBB. ED Course ED COURSE: Vital signs were reviewed and showed bradycardic, hypoxic, hypotensive. The patients medical record was reviewed The above diagnostic studies were performed and reviewed. ED treatments and interventions as stated above. 1547: The patient was evaluated in room A1. A complete history and physical examination was performed. 1552: I discussed the patient's case with Dr. Serrano. He is going to determine who will see the patient. 1604: Ordered NSS 1000 ml @ 999 mls/hr IV. 1607: Ordered Dopamine HCl/ Dextrose 400 mg .ROUTE. 1608: I am starting the patient on Dopamine. 1613: I reevaluated the patient and she is still mentating. Her heart rate is in the 30s and systolic in the 70s. 1614: I discussed the patient's case with Dr. Lord- Cardiology. 1618: Ordered Rapid Sequence Induction Bag 1 ea N/A. 1620: I reevaluated the patient and performed an intubation and pacing procedure. 1626: Ordered Versed Inj 2 mg . ROUTE. 1630: I discussed the patient's case with Dr. Zavala- Diesel Engine Mechanic Apprentice. 1653: I discussed the patient's case with Dr. Burnham- Hospitalist Roby. Based on the patients age, coexisting illnesses, exam and lab findings the decision to treat as an inpatient was made. The patient remained stable while under my care. The patient will be evaluated for further management. Medical Decision Differential diagnoses includes but is not limited to acute coronary syndrome, myocardial infarction, pericarditis, pulmonary embolus, aortic dissection, pneumonia, pneumothorax, musculoskeletal, shingles, esophageal. Patient is a 72-year-old female who presents to ER for diffuse weakness. I received medical command by EMS which showed complete heart block. Upon presentation to the ER for systolic blood pressures were in the low 100s with a heart rate in the 20s. I initially called Dr. Serrano consulted with him. At that time patient was stable. Systolic blood pressures did trend down to the 60s. She was given a bolus normal saline prior to this. She was at this time placed on dopamine drip. Systolic blood pressures did not improve. It did stabilize for a short period of time. Shortly thereafter became unresponsive. At this point patient was paced. We obtained good capture. She became responsive. Shortly thereafter the voltage was increased as he lost capture. We did obtain a blood pressure in the low 100s. At this time her mentation decreased. She was given 2 IV of Versed, ketamine and succinylcholine for intubation. At this point cardiology was at bedside. The Track Watchman was ready. X-ray was reviewed. Patient was taken emergently to the Track Watchman following intubation and being paced at a rate of 60 with capture at 110 mV. Medication Reconcilliation Current Medication List: was personally reviewed by me Blood Pressure Screening Patient's blood pressure: Low blood pressure Referred to hospitalist. Consults Time Called: 1550 Consulting Physician: Dr. Serrano- Cardiology Returned Call: 1552 I discussed the patient's case with Dr. Serrano. He is going to determine who will see the patient. Additional Consults: Time Called: 1610 Consulted Physician: Dr. Lord- Cardiology Returned Call: 1614 Additional Comments: I discussed the patient's case with Dr. Toribio Cardiology. Time Called: 1620 Consulted Physician: Dr. Zavala- Diesel Engine Mechanic Apprentice Returned Call: 1630 Additional Comments: I discussed the patient's case with Dr. Zavala- Diesel Engine Mechanic Apprentice. Impression Primary Impression: Complete heart block Additional Impression: Respiratory failure Critical Care I have personally spent 75 minutes of critical care time in the direct management of this patient. This includes bedside care, interpretation of diagnostic studies, and testing, discussion with consultants, patient, and family members, and other required patient management activities. This 75 minutes is in excess of all separately billable procedures. Scribe Attestation The scribe's documentation has been prepared under my direction and personally reviewed by me in its entirety. I confirm that the note above accurately reflects all work, treatment, procedures, and medical decision making performed by me. Departure Information Dispostion Being Evaluated By Hospitalist Patient Instructions My [facility] Problem Qualifiers Additional Impression: Respiratory failure Chronicity: acute Respiratory failure complication: hypoxia and hypercapnia Qualified Codes: J96.01 - Acute respiratory failure with hypoxia; J96.02 - Acute respiratory failure with hypercapnia
--- NOTE | 2017-06-01 23:01 | Critical Care Consultation ---
Critical Care Consultation Date of Consultation: Jun 01, 2017. Attending Physician: Jacob Junior MD Reason for Consultation: S/P temporary pacemaker History of Present Illness Jill Rizo is a 72-year-old female who presented to the emergency room today after having 1.5 hours of chest pain. She admitted to dizziness, diaphoresis, weakness and a fall during the symptoms. Patient did feel palpitations at this time. In route the hospital patient became nauseous and presented with a headache. Patient denied recent illness but did state that she had been bitten by a tick recently. Patient underwent electrocardiogram that demonstrated a ventricular escape rhythm with complete heart block and left axis deviation, right bundle branch block and a heart rate of 28. Vital signs demonstrated bradycardia, hypoxia and hypotension and patient was intubated in the emergency department for respiratory failure. Patient received succinylcholine and ketamine prior to glide scope intubation. Patient was placed on dopamine infusion and was seen by cardiology. Patient was taken to cardiac fence laborer while being cutaneously paced after an episode of asystole. Temporary pacemaker was successfully placed by Dr. Serrano via the right CFV and knee immobilizer in place. Dr. Bhagat saw pt in consult and per his records pt was diagnosed with nonischemic cardiomyopathy in 2007. Recent 2016 catheterization showed EF of 50 -55% but did not demonstrate cardiac disease. Patient is on Eliquis for lower extremity DVT. Pts other chronic medications include losartan and Carvedilol. Since admission to the ICU, pt was successfully extubated. Late in the evening , pt complained of 2/10 left sided chest pain without radiation. EKG was checked without signs of ischemia and a troponin of 0.075 was drawn. Otherwise , pt denies palpitations, dyspnea, abd pain, urinary frequency or burning, black tarry or blood stool, constipation or diarrhea. Pt is feeling fleeting nausea. Pt is complaining of frontal headache, arthritic knee pain, and all over pain from laying flat and still in bed. Past Medical/Surgical History Medical Problems: Complete heart block Respiratory Failure DVT Cardiomyopathy Obesity Surgical History: Temporary Pacemaker 2018 Family History Non-contributory Social History Smoking Status: Never Smoker Marital Status: Housing Status: lives with significant other (who is bedridden on hospice) Occupation Status: retired (RN) Allergies Coded Allergies: Celecoxib (Unverified Allergy, Mild, constant chest pain, 08/14/10) Chlorhexidine (Unverified Allergy, Mild, red rash and itching, 08/14/10) Pineapple (Unverified Allergy, Unknown, RESPIRATORY DISTRESS, 07/15/10) Uncoded Allergies: ANANASE (Allergy, Unknown, RESPIRATORY DISTRESS, 07/15/10) RUG GLUE (Allergy, Unknown, ANAPHYLATIC SHOCK, 07/15/10) Home Medications Scheduled Amoxicillin (Amoxil), 500 MG PO DIRECTED Apixaban (Eliquis), 2.5 MG PO BID Carvedilol (Coreg), 25 MG PO BID Cholecalciferol (Vitamin D3), 1,000 INTER.UNIT PO DAILY Isosorbide Mononitrate Ext Rel (Imdur Ext Rel), 30 MG PO DAILY Losartan Potassium (Cozaar), 50 MG PO DAILY Metformin Hcl (Glucophage), 500 MG PO BID Prednisolone Acetate (Prednisolone Acetate), 1 DROP OPB DAILY Ranitidine (Zantac), 150 MG PO BID Sertraline Hcl (Zoloft), 100 MG PO QAM Simvastatin (Zocor), 10 MG PO HS Turmeric (Curcuma Longa) (Turmeric), 1 CAP PO DAILY Scheduled PRN Artificial Tear Solution (Artificial Tears), 1 DROPS OP QID PRN for PRN Docusate Sodium (Stool Softener), 200 MG PO DAILY PRN for Constipation Oxycodone/Acetaminophen 5MG/325MG (Oxycodone/Acetaminophen 5MG/325MG), 0.5-1 TABLET PO TID PRN for Pain Tramadol (Ultram), 100 MG PO QID PRN for Pain Trazodone Hcl (Trazodone), 25 MG PO HS PRN for Insomnia Current Inpatient Medications Current Inpatient Medications Medications (Trade) Dose Ordered Sig/Zac Route Start Time Stop Time Status Last Admin Dose Admin Dopamine HCl/ Dextrose 250 ml @ 0 mls/hr Q0M PRN IV 06/01/17 16:15 07/01/17 16:14 Future Hold Midazolam HCl 250 ml @ 0 mls/hr Q0M PRN IV 06/01/17 17:00 07/01/17 16:59 Pantoprazole Sodium 40 mg/ Syringe 10 ml @ 5 mls/min DAILY@1100 IV 06/02/17 11:00 07/02/17 10:59 Miscellaneous Information (Icu Protocol For Hyperglycemia) 1 ea PRN PRN N/A 06/01/17 17:45 06/03/17 17:44 Parenteral Electrolyte Solution 1,000 ml @ 75 mls/hr [id number] IV 06/01/17 20:30 07/01/17 20:29 06/01/17 20:22 75 MLS/HR Tramadol HCl (Ultram Tab) 100 mg QID PRN PO 06/01/17 22:15 07/01/17 22:14 Review of Systems 12 systems reviewed and negative other than previously mentioned in the HPI. Physical Exam Date Time Temp Pulse Resp B/P (MAP) Pulse Ox O2 Delivery O2 Flow Rate FiO2 06/01/17 22:00 88 16 123/69 (87) 97 Room Air 06/01/17 22:00 88 18 123/69 (87) 97 Room Air 06/01/17 21:00 80 18 132/59 (83) 98 Room Air 06/01/17 20:00 36.5 81 18 99/59 (72) 99 Room Air 06/01/17 20:00 98 Room Air 06/01/17 20:00 81 18 99/59 (72) 99 Room Air 06/01/17 19:30 82 18 119/74 (89) 97 Room Air 06/01/17 19:00 80 18 104/61 (75) 96 Room Air 06/01/17 18:45 80 16 101/61 (74) 98 Room Air 06/01/17 18:32 36.5 80 12 149/72 98 Room Air 06/01/17 18:30 80 18 103/63 (76) 98 Room Air 06/01/17 18:15 80 18 115/61 (79) 98 Nasal Cannula 2.0 06/01/17 18:00 80 18 103/65 (78) 99 Nasal Cannula 4.0 06/01/17 17:23 80 12 149/72 (97) 100 Mechanical Ventilator 100 06/01/17 17:10 80 12 140/72 (94) 100 Mechanical Ventilator 100 06/01/17 17:01 100 06/01/17 16:45 59 18 97 Mechanical Ventilator 06/01/17 16:43 131/50 95 Mechanical Ventilator 06/01/17 16:40 64 10 93 Mechanical Ventilator 06/01/17 16:35 60 17 85 Mechanical Ventilator 06/01/17 16:30 27 10 06/01/17 16:25 60 12 06/01/17 16:24 0 3 06/01/17 16:22 121/32 95 Non-Rebreather 06/01/17 16:20 60 12 06/01/17 16:17 69 06/01/17 16:15 25 14 98 Nasal Cannula 2.0 06/01/17 16:10 27 14 62/55 96 Nasal Cannula 2.0 06/01/17 16:05 27 13 62/50 97 Nasal Cannula 2.0 06/01/17 16:00 93 Room Air 06/01/17 16:00 28 13 60/40 98 Nasal Cannula 2.0 06/01/17 16:00 36.5 20 16 62/40 93 Nasal Cannula 2.0 06/01/17 15:58 27 Vital Signs - as noted Laboratory Data - as noted Physical Exam: General - NAD Eyes - PERRL, EOMI No icterus, gaze conjugate ENT - Mucosa moist, no lesions or candidiasis Neck - Supple, trachea midline, no masses or lymphadenopathy, no JVD or bruits Lungs - No paradoxical chest wall movement, clear to auscultation bilaterally, no wheezes, rales, or rhonchi Heart - Reg rate and rythym, No murmur, rubs, clicks, or gallops appreciated Abdomen - normoactive BS present, no bruits noted, tympanic to percussion, soft , nontender, nondistended, no organomegaly Extremities - No edema, pedal pulses intact Neuro - A&OX3 Proprioception intact, neg pronator drift Strength extremities equal and appropriate bilaterally Reflexes: Bicep, brachioradialis, patellar, and plantar normal and equal Cerebellum: Finger to nose appropriate CN:PERRL, EOMI, no facial asymmetry, uvula/tongue midline Laboratory Results Last 24 Hours Test 06/01/17 16:05 06/01/17 19:41 06/01/17 20:25 White Blood Count 8.50 K/uL Red Blood Count 4.26 M/uL Hemoglobin 13.1 g/dL Hematocrit 40.7 % Mean Corpuscular Volume 95.5 fL Mean Corpuscular Hemoglobin 30.8 pg Mean Corpuscular Hemoglobin Concent 32.2 g/dl Platelet Count 209 K/uL Mean Platelet Volume 10.1 fL Neutrophils (%) (Auto) 68.0 % Lymphocytes (%) (Auto) 19.1 % Monocytes (%) (Auto) 7.9 % Eosinophils (%) (Auto) 4.0 % Basophils (%) (Auto) 0.9 % Neutrophils # (Auto) 5.78 K/uL Lymphocytes # (Auto) 1.62 K/uL Monocytes # (Auto) 0.67 K/uL Eosinophils # (Auto) 0.34 K/uL Basophils # (Auto) 0.08 K/uL RDW Standard Deviation 49.7 fL RDW Coefficient of Variation 14.3 % Immature Granulocyte % (Auto) 0.1 % Immature Granulocyte # (Auto) 0.01 K/uL Sodium Level 141 mmol/L Potassium Level 4.4 mmol/L Chloride Level 109 mmol/L Carbon Dioxide Level 25 mmol/L Anion Gap 7.0 mmol/L Blood Urea Nitrogen 25 mg/dl Creatinine 1.69 mg/dl Estimated GFR () 34.8 Estimated GFR (Non- 30.0 BUN/Creatinine Ratio 14.7 Random Glucose 136 mg/dl Calcium Level 9.7 mg/dl Total Creatine Kinase 48 U/L Creatine Kinase MB 1.2 ng/ml Creatine Kinase MB Ratio 2.5 Troponin I < 0.015 ng/ml Lyme Disease IgG Antibody NEG Lyme Disease IgM Antibody NEG Bedside Glucose 94 mg/dl Diagnostic Results CHEST ONE VIEW PORTABLE CLINICAL HISTORY: Chest Pain dyspnea COMPARISON STUDY: 10/21/2014 FINDINGS: Endotracheal tube positioned 4 cm above the germaine. Slight bronchovascular prominence. No pneumothorax. No focal infiltrate. Mild cardiomegaly. IMPRESSION: Endotracheal tube 4 cm both germaine. Mild prominence of pulmonary vasculature. The above report was generated using voice recognition software. It may contain grammatical, syntax or spelling errors. Electronically signed by: Shree Aguirre M.D. 06/01/2017 4:55 PM Dictated Date/Time: 06/01/2017 4:54 PM Assessment & Plan (1) Complete heart block (2) Respiratory failure (3) Chest pain PLAN: CV: * Temporary Pacemaker insertion by Dr. Serrano for complete heart block * Plan for permanent placement after lyme titer results * Dr. Bhagat consulted, appreciate input * Recheck troponin and EKG in AM * Home Cardiac Medication currently held * Last ECHO in 2017 demonstrated EF 50-55% Neuro: * Pt continues to report arthritic pain * Continue ordered Ultram 100 q6h * A&O x 4 Resp: * Intubated due to respiratory failure secondary to complete cardiac block and episode of asystole, Extubated s/p temporary pacemaker insertion. * Supplemental oxygen as required * Adequate saturations on 2L nasal cannula; wean as tolerated Fluids/Renal: * Normosol @75mL/hr * KARINA Cr 1.69 * Valera in place. Fluid balance currently - 400mL ID: * Afebrile, no leukocytosis * No focal infective source noted * Monitor fever curve GI/Nutrition: * Advance diet as tolerated. No surgical procedure planned for tomorrow. Heme: * Eliquis currently held for procedure. * Will require anticoagulation when deemed appropriate * H&H: 13.1/40.7 Plts 209 * Daily CBC Endocrine: * Accu-Checks per protocol, started insulin infusion for 2 blood sugars greater than 180 or one greater than 250 * Metformin for pre-dm currently being held CCT: 37 Minutes; This time is exclusive of all separately billable procedures. Thank you for involving us in the care of this patient. Please refer to Dr. Pilo Zavala's addendum for further recommendations. I have personally evaluated and examined this patient. I agree with assessment and plan of Edmund Huerta PA-C. patient alert following complex commands S/P procedure, effective capture of pacer at 10mA. Await possible return of function vs permanent pacer placement Problem Qualifiers (1) Respiratory failure: Chronicity: acute Respiratory failure complication: hypoxia and hypercapnia Qualified Codes: J96.01 - Acute respiratory failure with hypoxia; J96.02 - Acute respiratory failure with hypercapnia
[2017-06-02] VITALS (21 sets, daily range): BP systolic 119–167; BP diastolic 54–77; PULSE 61–88; TEMP 36.7–37.2; O2SAT 89–100; Ht 170.2 cm; Wt 128.8 kg
[2017-06-02 05:14] LABS: HEMATOCRIT 38.8 % (37-47); HEMOGLOBIN 12.5 g/dL (12.0-16.0); MEAN CELL VOLUME 95.8 fL (80-100); MEAN CORPUSCULAR HEMOGLOBIN 30.9 pg (25-34); MEAN CORPUSCULAR HGB CONC 32.2 g/dl (32-36); MEAN PLATELET VOLUME 9.7 fL (7.4-10.4); PLATELET COUNT 193 K/uL (130-400); RED CELL DISTRIBUTION WIDTH CV 14.4 % (11.5-14.5); RED CELL DISTRIBUTION WIDTH SD 51.2 fL (36.4-46.3); WHITE BLOOD COUNT 8.32 K/uL (4.8-10.8)
[2017-06-02] MEDS: TRAMADOL HCL 50 MG TAB PO PRN ×2 (05:32→13:24)
[2017-06-02 05:53] LABS: CALCIUM 9.4 mg/dl (8.5-10.1); CREATININE 1.35 mg/dl (0.60-1.20); POTASSIUM 4.4 mmol/L (3.5-5.1)
[2017-06-02 06:07] LABS: PHOSPHORUS 3.7 mg/dl (2.5-4.9)
[2017-06-02 06:30] LABS: HEMOGLOBIN A1C 5.7 % (4.5-5.6)
--- NOTE | 2017-06-02 06:41 | Clinical Documentation Query ---
Dr. [facility] : CLINICAL DOCUMENTATION QUERY Patient is a 72 year old female admitted for evaluation and treatment of complete heart block. Underwent endotracheal intubation after failed attempt with dopamine to maintain HR, ultimately resulting in insertion of a temporary transvenous pacemaker. BMI noted to be 45.9 kg/m*m. In order to capture this clinically relevant information, the provider must explicitly document an associated medical condition such as that suggested below. In your clinical opinion, does this patient suffer from : ( X ) Morbid obesity, BMI 45.9 kg/m*m ( ) Not Agree ( ) Other explanation of clinical findings (Please Explain) ( ) Unable to determine (Please Define) ( ) Need to Discuss The medical record reflects the following clinical findings, treatment, and risk factors. Clinical Indicators: As above Treatment: NPO, daily weights Risk Factors: Caloric intake > caloric expenditure Please clarify and document your clinical opinion in the progress notes and discharge summary. Terms such as "probable", "suspected", "likely", "questionable", "possible", or "still to be ruled out" are acceptable. IF IN AGREEMENT, YOU MUST DOCUMENT ABOVE DIAGNOSTIC STATEMENT IN DAILY PROGRESS NOTES AND DISCHARGE SUMMARY. This document is not part of the patient's record. Thank You, Pilo De Leon, RN [phone]
--- NOTE | 2017-06-02 07:03 | DIAGNOSTIC IMAGING REPORT ---
CHEST ONE VIEW PORTABLE CLINICAL HISTORY: heart block chest pain COMPARISON STUDY: 06/01/2017 FINDINGS: Interval extubation. Mild stable cardiomegaly. Mild prominence of pulmonary vasculature is similar compared to the prior exam. Diaphragms smooth. IMPRESSION: Interval extubation. Mild stable cardiomegaly. Similar mild prominence of pulmonary vasculature. The above report was generated using voice recognition software. It may contain grammatical, syntax or spelling errors. Electronically signed by: Shree Aguirre M.D. 06/02/2017 7:01 AM Dictated Date/Time: 06/02/2017 7:00 AM
[2017-06-02] MEDS ORDERED: MoRPHine SULFATE 2 MG/ML CARP IV PRN (07:45)
[2017-06-02] MEDS: NORMOSOL R 1,000 ML IV SCH (07:56)
[2017-06-02] MEDS ORDERED: NURSING VERBAL MED ORDER STA (08:17)
[2017-06-02] MEDS ORDERED: HYDROmorphone INJ 0.5 MG/0.5 ML SYR ONE (08:20)
--- NOTE | 2017-06-02 08:40 | DIAGNOSTIC IMAGING REPORT ---
CHEST ONE VIEW PORTABLE CLINICAL HISTORY: Chest pain s/p temporary pacer COMPARISON STUDY: 06/02/2017 6:53 AM FINDINGS: Lungs remain clear. Mild stable cardiomegaly. Mild tortuosity thoracic aorta unchanged. Present] cardiac pacer in good position. IMPRESSION: Mild stable cardiomegaly. No acute process. Temporary cardiac pacemaker in good position. The above report was generated using voice recognition software. It may contain grammatical, syntax or spelling errors. Electronically signed by: Shree Aguirre M.D. 06/02/2017 8:39 AM Dictated Date/Time: 06/02/2017 8:29 AM
[2017-06-02] MEDS ORDERED: HEPARIN SOD 5000 UNIT/0.5 ML CARP SC SCH (09:00)
--- NOTE | 2017-06-02 09:11 | Cardiology Follow-Up ---
Subjective Date of Service: Jun 02, 2017. Pt evaluation today including: conversation w/ patient, physical exam, lab review, review of studies, review of inpatient medication list History of Present Illness This is a 72-year-old woman who has a history of nonischemic cardiomyopathy diagnosed in 2007 with a catheterization showing normal coronary arteries in July 2016. Her ejection fraction improved with medical therapy, at catheterization July 2016 it was felt to be 50-55%. In addition she has a left lower extremity DVT and hematology has recommended lifelong anticoagulation. She is therefore been maintained on eliquis and losartan. She has been maintained on carvedilol 25 mg twice a day as well as Eliquis. Today she began to feel very weak and short of breath while walking, had to sit down and was brought to the emergency room. In the emergency room she was found to be in complete heart block with a heart rate in the 20s. The heart rate did not respond well to dopamine, she was also hypotensive with a blood pressure initially in the 60s which did improve somewhat with dopamine. She was conscious at that time although did not feel well, however she had episode of asystole in the emergency room and external pacing was applied. She is very uncomfortable with external pacing but regained consciousness quickly. The temporary external pacing was stopped and she again began to become unresponsive. It was therefore restarted, she is intubated and sedated. Prior to intubation and while she was awake she agreed to have temporary pacing. She was therefore taken to the chemical processing laborer for temporary pacing. With a temporary pacemaker in place she recovered quickly and was able to be extubated. She did not have any prolonged period of asystole. Today she feels well, she is aware of the pacing as a feeling in her chest but is not having significant discomfort. Overall she is feeling well but is worried about the event understandably. Social History Smoking Status: Unknown if Ever Smoked History of Alcohol Use: No Review of Systems Respiratory: + dyspnea on exertion, No cough, No wheezing, No shortness of breath Cardiac: + see HPI, + problem reported (extreme weakness and fatigue), No chest pain, No orthopnea, No PND, No edema, No palpitations Medications Cardiovascular: Item Value Date Time Heparin Sodium 5,000 unit 06/02/17 0900 (Porcine) Q8/SC (Heparin Sq 5000 Unit/0.5ml) Objective Vital Signs Past 12 Hours Date Time Temp Pulse Resp B/P (MAP) Pulse Ox O2 Delivery O2 Flow Rate FiO2 06/02/17 06:00 36.9 82 18 96 Room Air 06/02/17 04:01 82 16 131/61 (84) 98 06/02/17 04:00 97 Nasal Cannula 2.0 100 06/02/17 01:46 83 16 144/64 (90) 98 06/02/17 01:31 84 16 143/77 (99) 99 06/02/17 01:01 83 16 128/68 (88) 99 06/02/17 00:46 85 16 144/64 (90) 99 06/02/17 00:31 88 16 129/77 (94) 100 06/02/17 00:16 86 18 137/70 (92) 100 06/02/17 00:01 84 18 134/66 (88) 100 06/01/17 23:59 97 Nasal Cannula 2.0 100 06/01/17 23:46 85 18 134/80 (98) 100 06/01/17 23:31 81 18 136/68 (90) 98 Nasal Cannula 2.0 06/01/17 23:16 84 18 126/73 (90) 97 Nasal Cannula 2.0 06/01/17 23:01 36.9 82 18 145/74 (97) 97 06/01/17 22:00 88 16 123/69 (87) 97 Room Air 06/01/17 22:00 88 18 123/69 (87) 97 Room Air Last Recorded Weight-Kilograms: 133.000 Physical Exam Constitutional: General Apperance: obese Level of Distress: NAD Lungs: Respiratory effort: no dyspnea, good air movement Auscultation: breath sounds normal, no wheezing Cardiovascular: Heart Auscultation: RRR, no murmurs, no rubs, no gallops Peripheral Pulses: Bruits: none appreciated Extremities: no edema Data Laboratory Results: Last 24 Hours Test 06/01/17 16:05 06/01/17 19:41 06/01/17 20:25 06/01/17 23:42 White Blood Count 8.50 K/uL Red Blood Count 4.26 M/uL Hemoglobin 13.1 g/dL Hematocrit 40.7 % Mean Corpuscular Volume 95.5 fL Mean Corpuscular Hemoglobin 30.8 pg Mean Corpuscular Hemoglobin Concent 32.2 g/dl Platelet Count 209 K/uL Mean Platelet Volume 10.1 fL Neutrophils (%) (Auto) 68.0 % Lymphocytes (%) (Auto) 19.1 % Monocytes (%) (Auto) 7.9 % Eosinophils (%) (Auto) 4.0 % Basophils (%) (Auto) 0.9 % Neutrophils # (Auto) 5.78 K/uL Lymphocytes # (Auto) 1.62 K/uL Monocytes # (Auto) 0.67 K/uL Eosinophils # (Auto) 0.34 K/uL Basophils # (Auto) 0.08 K/uL RDW Standard Deviation 49.7 fL RDW Coefficient of Variation 14.3 % Immature Granulocyte % (Auto) 0.1 % Immature Granulocyte # (Auto) 0.01 K/uL Sodium Level 141 mmol/L Potassium Level 4.4 mmol/L Chloride Level 109 mmol/L Carbon Dioxide Level 25 mmol/L Anion Gap 7.0 mmol/L Blood Urea Nitrogen 25 mg/dl Creatinine 1.69 mg/dl Estimated GFR () 34.8 Estimated GFR (Non- 30.0 BUN/Creatinine Ratio 14.7 Random Glucose 136 mg/dl Calcium Level 9.7 mg/dl Total Creatine Kinase 48 U/L Creatine Kinase MB 1.2 ng/ml Creatine Kinase MB Ratio 2.5 Troponin I < 0.015 ng/ml 0.075 ng/ml Lyme Disease IgG Antibody NEG Lyme Disease IgM Antibody NEG Bedside Glucose 94 mg/dl Test 06/01/17 23:45 06/02/17 05:06 Bedside Glucose 100 mg/dl White Blood Count 8.32 K/uL Red Blood Count 4.05 M/uL Hemoglobin 12.5 g/dL Hematocrit 38.8 % Mean Corpuscular Volume 95.8 fL Mean Corpuscular Hemoglobin 30.9 pg Mean Corpuscular Hemoglobin Concent 32.2 g/dl RDW Standard Deviation 51.2 fL RDW Coefficient of Variation 14.4 % Platelet Count 193 K/uL Mean Platelet Volume 9.7 fL Sodium Level 140 mmol/L Potassium Level 4.4 mmol/L Chloride Level 109 mmol/L Carbon Dioxide Level 26 mmol/L Anion Gap 5.0 mmol/L Blood Urea Nitrogen 24 mg/dl Creatinine 1.35 mg/dl Est Creatinine Clear Calc Drug Dose 54.5 ml/min Estimated GFR () 45.7 Estimated GFR (Non- 39.4 BUN/Creatinine Ratio 17.9 Random Glucose 101 mg/dl Estimated Average Glucose 117 mg/dl Hemoglobin A1c 5.7 % Calcium Level 9.4 mg/dl Phosphorus Level 3.7 mg/dl Magnesium Level 2.0 mg/dl Troponin I 0.064 ng/ml Thyroid Stimulating Hormone (TSH) 0.645 uIu/ml Imaging: Chest x-ray shows good temporary lead placement. EKG: Her electrocardiogram today shows ventricular pacing throughout with a sinus rhythm which is dissociated at a slightly lower heart rate. Telemetry reviewed: Ventricular pacing overnight, no evidence of AV conduction when pacing at 80 bpm. Temperature pacemaker: During the temporary pacemaker down resulted in intrinsic conduction in the 70s. The pacemaker was left at 50 bpm in demand mode Assessment and Plan #1. 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 It is possible CHB is aggravated by beta-blockade but she has been on the same dose for a long time. Her Lyme titer is negative. She has regained conduction with discontinuation of beta-blockade, however if the heart block is due to His- Purkinje disease it may well be intermittent and it may not a been related to the beta-blockade. I would recommend leaving her with a backup rate of 50 bpm and the temporary pacemaker in place until tomorrow, if she has recurrent need for ventricular pacing that she will need a permanent pacemaker. If she does not will have to make a decision as to whether to continue to observe or go ahead and put in a pacemaker with the evidence that we have. I would probably not make that decision until tomorrow morning. I will keep her nothing by mouth after midnight. #2. Cardiomyopathy: As of July of this year her cardiomyopathy has resolved with normalization of her ejection fraction. She had normal coronary arteries at catheterization. Ideally we would maintain beta blockade and ARB therapy, if we're required to hold beta-blockade will have to watch closely for recurrence of her cardiomyopathy. If she needs a pacemaker then I would continue the beta- blockade. The type of pacemaker is a little problematic, she could develop a cardiomyopathy simply with ventricular pacing but that is not normally a high likelihood. Biventricular pacing may not be indicated under the circumstances. His bundle pacing might be a consideration although if she had infra-his heart block that also may not prevent asystole. Thank you for allowing me to participate in her care.
--- NOTE | 2017-06-02 09:33 | Progress Note ---
Internal Med Progress Note Date of Service: Jun 02, 2017. Provider Documentation: SUBJECTIVE: Seen and examined at bedside States having some chest discomfort and reports feeling the pacer leads Also reports dizziness, nausea, subjective SOB No other complaints OBJECTIVE: Vital Signs-as noted below Physical Exam: General Appearance:Obese, no apparent distress Head: normocephalic, Atraumatic Eyes: normal inspection, EOMI, PERRL Neck: supple, Trachea midline Respiratory/Chest: Normal breath sounds, CTA Cardiovascular: S1, S2, No murmur Abdomen/GI:Soft, Non tender, Bowel sounds present Extremities/Musculoskelatal:normal inspection, Chronic LLE edema, RLE immobilizer Neurologic/Psych:AAOX3, grossly no focal neurological deficits Skin: normal color, warm Lab data as noted below. 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 Carvedilol, losartan, nitrates held for now Cardiology following HYPERTENSION Stable Carvedilol, losartan, nitrates held Monitor KARINA on CKD III Cr levels trending towards baseline Losartan held on IV fluids Monitor renal function DM II: Hold metformin Hgb A1C: 5.7 Monitor Blood sugar levels H/O LLE DVT: On Apixaban at home Heparin SQ for now MORBID OBESITY: BMI:45.9 GI Px: PPI DVT Px: Held apixaban as may need permanent pacemaker Heparin SQ DISPOSITION Continue monitoring in ICU. Vital Signs: Date Time Temp Pulse Resp B/P (MAP) Pulse Ox O2 Delivery O2 Flow Rate FiO2 06/02/17 06:00 36.9 82 18 96 Room Air 06/02/17 04:01 82 16 131/61 (84) 98 06/02/17 04:00 97 Nasal Cannula 2.0 100 06/02/17 01:46 83 16 144/64 (90) 98 06/02/17 01:31 84 16 143/77 (99) 99 06/02/17 01:01 83 16 128/68 (88) 99 06/02/17 00:46 85 16 144/64 (90) 99 06/02/17 00:31 88 16 129/77 (94) 100 1/3/18 00:16 86 18 137/70 (92) 100 06/02/17 00:01 84 18 134/66 (88) 100 06/01/17 23:59 97 Nasal Cannula 2.0 100 06/01/17 23:46 85 18 134/80 (98) 100 06/01/17 23:31 81 18 136/68 (90) 98 Nasal Cannula 2.0 06/01/17 23:16 84 18 126/73 (90) 97 Nasal Cannula 2.0 06/01/17 23:01 36.9 82 18 145/74 (97) 97 06/01/17 22:00 88 16 123/69 (87) 97 Room Air 06/01/17 22:00 88 18 123/69 (87) 97 Room Air 06/01/17 21:00 80 18 132/59 (83) 98 Room Air 06/01/17 20:00 36.5 81 18 99/59 (72) 99 Room Air 06/01/17 20:00 98 Room Air 06/01/17 20:00 81 18 99/59 (72) 99 Room Air 06/01/17 19:30 82 18 119/74 (89) 97 Room Air 06/01/17 19:00 80 18 104/61 (75) 96 Room Air 06/01/17 18:45 80 16 101/61 (74) 98 Room Air 06/01/17 18:32 36.5 80 12 149/72 98 Room Air 06/01/17 18:30 80 18 103/63 (76) 98 Room Air 06/01/17 18:15 80 18 115/61 (79) 98 Nasal Cannula 2.0 06/01/17 18:00 80 18 103/65 (78) 99 Nasal Cannula 4.0 06/01/17 17:23 80 12 149/72 (97) 100 Mechanical Ventilator 100 06/01/17 17:10 80 12 140/72 (94) 100 Mechanical Ventilator 100 06/01/17 17:01 100 06/01/17 16:45 59 18 97 Mechanical Ventilator 06/01/17 16:43 131/50 95 Mechanical Ventilator 06/01/17 16:40 64 10 93 Mechanical Ventilator 06/01/17 16:35 60 17 85 Mechanical Ventilator 06/01/17 16:30 27 10 06/01/17 16:25 60 12 1/2/18 16:24 0 3 06/01/17 16:22 121/32 95 Non-Rebreather 06/01/17 16:20 60 12 06/01/17 16:17 69 06/01/17 16:15 25 14 98 Nasal Cannula 2.0 06/01/17 16:10 27 14 62/55 96 Nasal Cannula 2.0 06/01/17 16:05 27 13 62/50 97 Nasal Cannula 2.0 06/01/17 16:00 93 Room Air 06/01/17 16:00 28 13 60/40 98 Nasal Cannula 2.0 06/01/17 16:00 36.5 20 16 62/40 93 Nasal Cannula 2.0 06/01/17 15:58 27 Lab Results: Results Past 24 Hours Test 06/01/17 16:05 06/01/17 19:41 06/01/17 20:25 06/01/17 23:42 Range/Units White Blood Count 8.50 4.8-10.8 K/uL Red Blood Count 4.26 4.2-5.4 M/uL Hemoglobin 13.1 12.0-16.0 g/dL Hematocrit 40.7 37-47 % Mean Corpuscular Volume 95.5 80-100 fL Mean Corpuscular Hemoglobin 30.8 25-34 pg Mean Corpuscular Hemoglobin Concent 32.2 32-36 g/dl Platelet Count 209 130-400 K/uL Mean Platelet Volume 10.1 7.4-10.4 fL Neutrophils (%) (Auto) 68.0 % Lymphocytes (%) (Auto) 19.1 % Monocytes (%) (Auto) 7.9 % Eosinophils (%) (Auto) 4.0 % Basophils (%) (Auto) 0.9 % Neutrophils # (Auto) 5.78 1.4-6.5 K/uL Lymphocytes # (Auto) 1.62 1.2-3.4 K/uL Monocytes # (Auto) 0.67 0.11-0.59 K/uL Eosinophils # (Auto) 0.34 0-0.5 K/uL Basophils # (Auto) 0.08 0-0.2 K/uL RDW Standard Deviation 49.7 36.4-46.3 fL RDW Coefficient of Variation 14.3 11.5-14.5 % Immature Granulocyte % (Auto) 0.1 % Immature Granulocyte # (Auto) 0.01 0.00-0.02 K/uL Sodium Level 141 136-145 mmol/L Potassium Level 4.4 3.5-5.1 mmol/L Chloride Level 109 98-107 mmol/L Carbon Dioxide Level 25 21-32 mmol/L Anion Gap 7.0 3-11 mmol/L Blood Urea Nitrogen 25 7-18 mg/dl Creatinine 1.69 0.60-1.20 mg/dl Estimated GFR () 34.8 Estimated GFR (Non- 30.0 BUN/Creatinine Ratio 14.7 10-20 Random Glucose 136 70-99 mg/dl Calcium Level 9.7 8.5-10.1 mg/dl Total Creatine Kinase 48 26-192 U/L Creatine Kinase MB 1.2 0.5-3.6 ng/ml Creatine Kinase MB Ratio 2.5 0-3.0 Troponin I < 0.015 0.075 0-0.045 ng/ml Lyme Disease IgG Antibody NEG NEG Lyme Disease IgM Antibody NEG NEG Bedside Glucose 94 70-90 mg/dl Test 06/01/17 23:45 06/02/17 05:06 Range/Units Bedside Glucose 100 70-90 mg/dl White Blood Count 8.32 4.8-10.8 K/uL Red Blood Count 4.05 4.2-5.4 M/uL Hemoglobin 12.5 12.0-16.0 g/dL Hematocrit 38.8 37-47 % Mean Corpuscular Volume 95.8 80-100 fL Mean Corpuscular Hemoglobin 30.9 25-34 pg Mean Corpuscular Hemoglobin Concent 32.2 32-36 g/dl RDW Standard Deviation 51.2 36.4-46.3 fL RDW Coefficient of Variation 14.4 11.5-14.5 % Platelet Count 193 130-400 K/uL Mean Platelet Volume 9.7 7.4-10.4 fL Sodium Level 140 136-145 mmol/L Potassium Level 4.4 3.5-5.1 mmol/L Chloride Level 109 98-107 mmol/L Carbon Dioxide Level 26 21-32 mmol/L Anion Gap 5.0 3-11 mmol/L Blood Urea Nitrogen 24 7-18 mg/dl Creatinine 1.35 0.60-1.20 mg/dl Est Creatinine Clear Calc Drug Dose 54.5 ml/min Estimated GFR () 45.7 Estimated GFR (Non- 39.4 BUN/Creatinine Ratio 17.9 10-20 Random Glucose 101 70-99 mg/dl Estimated Average Glucose 117 mg/dl Hemoglobin A1c 5.7 4.5-5.6 % Calcium Level 9.4 8.5-10.1 mg/dl Phosphorus Level 3.7 2.5-4.9 mg/dl Magnesium Level 2.0 1.8-2.4 mg/dl Troponin I 0.064 0-0.045 ng/ml Thyroid Stimulating Hormone (TSH) 0.645 0.300-4.500 uIu/ml
[2017-06-02] MEDS ORDERED: HYDROmorphone INJ 0.5 MG/0.5 ML SYR IV PRN (10:15)
[2017-06-02] MEDS: PANTOprazole INJ 40 MG in SYRINGE 0 ML IV SCH (11:25)
[2017-06-02] MEDS: HEPARIN 25,000 UNIT/500ML D5W 500 ML IV PRN (11:26)
[2017-06-02] MEDS: INSULIN ASPART 100 UNITS/ML 3 ML PEN SC SCH ×3 (11:30→19:53)
[2017-06-02 11:36] LABS: BASO % 0.6 %; BASO ABS # 0.04 K/uL (0-0.2); EOS % 0.8 %; EOS ABS # 0.06 K/uL (0-0.5); HEMATOCRIT 40.3 % (37-47); IG# 0.02 K/uL (0.00-0.02); LYMPH % 12.8 %; LYMPH ABS # 0.91 K/uL (1.2-3.4); MEAN CELL VOLUME 95.7 fL (80-100); MEAN CORPUSCULAR HEMOGLOBIN 30.9 pg (25-34); MEAN PLATELET VOLUME 9.5 fL (7.4-10.4); MONO % 6.8 %; MONO ABS # 0.48 K/uL (0.11-0.59); NEUT % 78.7 %; NEUT ABS # 5.58 K/uL (1.4-6.5); PLATELET COUNT 192 K/uL (130-400); RED CELL DISTRIBUTION WIDTH CV 14.6 % (11.5-14.5); RED CELL DISTRIBUTION WIDTH SD 51.4 fL (36.4-46.3); WHITE BLOOD COUNT 7.09 K/uL (4.8-10.8)
[2017-06-02 11:39] LABS: MEAN CORPUSCULAR HGB CONC 32.3 g/dl (32-36)
[2017-06-02] MEDS ORDERED: NURSING VERBAL MED ORDER ONE ×3 (11:45→16:45)
[2017-06-02] MEDS ORDERED: NORMOSOL R 1,000 ML IV SCH (11:45)
[2017-06-02 11:50] LABS: PTT PATIENT 23.8 SECONDS (21.0-31.0)
[2017-06-02] MEDS: SODIUM CHLORIDE 0.9% 1000ML 1,000 ML IV SCH (12:17)
--- NOTE | 2017-06-02 15:01 | Critical Care Progress Note ---
Critical Care Progress Note Date of Service Jun 02, 2017. ICU Day ICU Day Number: [address] Zavala Subjective Patient admitted found to have complete heart block. Transcutaneous pacer placed by Dr. Serrano in the cardiac [employer]. Dr. Lord is following from an EP standpoint. Pacer currently set at 50 BPMs and 10 mAs. Patient is developing spontaneous heart rate in the 70s. Since pacer has been set, patient denies further chest pain. No SOB. Acute complaint includes anxiety related to further episodes. No n/v/d. No further complaints. Objective Vital Signs - as noted below Laboratory Data - as noted below Physical Exam: General - NAD Eyes - No icterus, gaze conjugate ENT - Mucosa moist, no lesions or candidiasis Neck - Supple, No JVD Lungs - No bronchospasm, rales, or rhonchi. Heart - Regular, rate controlled Abdomen - Soft, NT, ND, BS present Extremities - No edema, pedal pulses intact Neuro - A&OX3 Current SOFA Score SOFA Score Response (Comments) Value Platelets (x10) > 150 0 Bilirubin (mg/dL) < 1.2 0 [place] Coma Score 15 0 Level of Hypotension No Hypotension 0 Creatinine (mg/dL) 1.2 - 1.9 1 Total 1 Assessment & Plan (1) Status post cardiac catheterization (2) Complete heart block (3) Chest pain (4) Cardiomyopathy, nonischemic (5) Diabetes mellitus, type 2 (6) History of deep venous thrombosis CV: * Temporary Pacemaker insertion by Dr. Serrano for complete heart block in the cardiac catheterization lab * Lyme titer negative * Dr. Bhagat consulted, appreciate input * Continue to monitor. If patient develops further block consider pacemaker * Currently maintaining a spontaneous heart rate in the 70s - pacer set at 50 bpm at 10 mA * Home Cardiac Medication currently held * Last ECHO in 2017 demonstrated EF 50-55% Neuro: * Pt continues to report arthritic pain * Continue ordered Ultram 100 q6h * A&OX3 Resp: * Resolved respiratory insufficiency * Intubated due to respiratory failure secondary to complete cardiac block and episode of asystole, Extubated s/p temporary pacemaker insertion. * No documented hypoxia or hypercapnia * Supplemental oxygen as required * Adequate saturations on 2L nasal cannula; wean as tolerated Fluids/Renal: * Continue Normosol @75mL/hr for now due to KARINA. Diet being advanced * KARINA Cr 1.69 on admission - now 1.35 * Valera in place. Fluid balance currently - 200mL * Serial labs and strict I&Os ID: * Afebrile, no leukocytosis * No focal infective source noted GI/Nutrition: * Advance diet as tolerated. No surgical procedure planned unless patient develops further heart block. Heme: * Eliquis currently held for procedure. 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 Thank you for involving us in the care of this patient. Please refer to Dr. Pilo Zavala's addendum for further recommendations. I have personally evaluated and examined this patient. I agree with assessment and plan of Devorah Fan PA-C. I have reviewed the monitor data at the time of this, signature the patient's heart rate has not dropped below 57 Consults & Procedures Consultants: Cardiology - Appreciate Dr. Serrano and Dr. Lord input Procedures: Transcutaneous pacer placed in right femoral site 06/01/2017 Data Medications: Current Inpatient Medications Medications (Trade) Dose Ordered Sig/Zac Route Start Time Stop Time Status Last Admin Dose Admin Pantoprazole Sodium 40 mg/ Syringe 10 ml @ 5 mls/min DAILY@1100 IV 06/02/17 11:00 07/02/17 10:59 06/02/17 11:25 5 MLS/MIN Miscellaneous Information (Icu Protocol For Hyperglycemia) 1 ea PRN PRN N/A 06/01/17 17:45 06/03/17 17:44 Tramadol HCl (Ultram Tab) 100 mg QID PRN PO 06/01/17 22:15 07/01/17 22:14 06/02/17 13:24 100 MG Hydromorphone HCl (Dilaudid Inj) 0.5 mg Q4H PRN IV 06/02/17 10:15 06/16/17 10:14 06/02/17 13:07 0.5 MG Heparin Sodium/ Dextrose 500 ml @ 32 mls/hr [id number] PRN IV 06/02/17 11:00 07/02/17 10:59 06/02/17 11:26 32 MLS/HR Insulin Aspart (novoLOG ASPART) SLIDING SCALE ACHS SC 06/02/17 11:30 07/02/17 11:29 Sodium Chloride 1,000 ml @ 30 mls/hr Q24H IV 06/02/17 12:00 07/02/17 11:59 06/02/17 12:17 30 MLS/HR I & O: 24-Hour Column 06/03/17 08:00 Intake Total 950 ml Output Total 500 ml Balance 450 ml Vital Signs: Date Time Temp Pulse Resp B/P (MAP) Pulse Ox O2 Delivery O2 Flow Rate FiO2 06/02/17 14:29 67 18 125/55 (78) 92 Nasal Cannula 06/02/17 12:00 65 18 144/67 (92) 95 Nasal Cannula 06/02/17 12:00 Room Air 06/02/17 10:00 65 18 150/73 (98) 96 Nasal Cannula 06/02/17 08:00 Room Air 06/02/17 08:00 72 18 119/74 (89) 97 Nasal Cannula 06/02/17 08:00 Room Air 06/02/17 06:00 36.9 82 18 96 Room Air 06/02/17 04:01 82 16 131/61 (84) 98 06/02/17 04:00 97 Nasal Cannula 2.0 100 06/02/17 01:46 83 16 144/64 (90) 98 06/02/17 01:31 84 16 143/77 (99) 99 06/02/17 01:01 83 16 128/68 (88) 99 06/02/17 00:46 85 16 144/64 (90) 99 06/02/17 00:31 88 16 129/77 (94) 100 06/02/17 00:16 86 18 137/70 (92) 100 06/02/17 00:01 84 18 134/66 (88) 100 06/01/17 23:59 97 Nasal Cannula 2.0 100 06/01/17 23:46 85 18 134/80 (98) 100 06/01/17 23:31 81 18 136/68 (90) 98 Nasal Cannula 2.0 06/01/17 23:16 84 18 126/73 (90) 97 Nasal Cannula 2.0 06/01/17 23:01 36.9 82 18 145/74 (97) 97 06/01/17 22:00 88 16 123/69 (87) 97 Room Air 06/01/17 22:00 88 18 123/69 (87) 97 Room Air 06/01/17 21:00 80 18 132/59 (83) 98 Room Air 06/01/17 20:00 36.5 81 18 99/59 (72) 99 Room Air 06/01/17 20:00 98 Room Air 06/01/17 20:00 81 18 99/59 (72) 99 Room Air 06/01/17 19:30 82 18 119/74 (89) 97 Room Air 06/01/17 19:00 80 18 104/61 (75) 96 Room Air 06/01/17 18:45 80 16 101/61 (74) 98 Room Air 06/01/17 18:32 36.5 80 12 149/72 98 Room Air 06/01/17 18:30 80 18 103/63 (76) 98 Room Air 06/01/17 18:15 80 18 115/61 (79) 98 Nasal Cannula 2.0 06/01/17 18:00 80 18 103/65 (78) 99 Nasal Cannula 4.0 06/01/17 17:23 80 12 149/72 (97) 100 Mechanical Ventilator 100 06/01/17 17:10 80 12 140/72 (94) 100 Mechanical Ventilator 100 06/01/17 17:01 100 06/01/17 16:45 59 18 97 Mechanical Ventilator 06/01/17 16:43 131/50 95 Mechanical Ventilator 06/01/17 16:40 64 10 93 Mechanical Ventilator 06/01/17 16:35 60 17 85 Mechanical Ventilator 06/01/17 16:30 27 10 06/01/17 16:25 60 12 06/01/17 16:24 0 3 06/01/17 16:22 121/32 95 Non-Rebreather 06/01/17 16:20 60 12 06/01/17 16:17 69 06/01/17 16:15 25 14 98 Nasal Cannula 2.0 06/01/17 16:10 27 14 62/55 96 Nasal Cannula 2.0 06/01/17 16:05 27 13 62/50 97 Nasal Cannula 2.0 06/01/17 16:00 93 Room Air 06/01/17 16:00 28 13 60/40 98 Nasal Cannula 2.0 06/01/17 16:00 36.5 20 16 62/40 93 Nasal Cannula 2.0 06/01/17 15:58 27 Laboratory Results: Last 24 Hours Test 06/01/17 16:05 06/01/17 16:12 06/01/17 19:41 06/01/17 20:25 White Blood Count 8.50 K/uL Red Blood Count 4.26 M/uL Hemoglobin 13.1 g/dL Hematocrit 40.7 % Mean Corpuscular Volume 95.5 fL Mean Corpuscular Hemoglobin 30.8 pg Mean Corpuscular Hemoglobin Concent 32.2 g/dl Platelet Count 209 K/uL Mean Platelet Volume 10.1 fL Neutrophils (%) (Auto) 68.0 % Lymphocytes (%) (Auto) 19.1 % Monocytes (%) (Auto) 7.9 % Eosinophils (%) (Auto) 4.0 % Basophils (%) (Auto) 0.9 % Neutrophils # (Auto) 5.78 K/uL Lymphocytes # (Auto) 1.62 K/uL Monocytes # (Auto) 0.67 K/uL Eosinophils # (Auto) 0.34 K/uL Basophils # (Auto) 0.08 K/uL RDW Standard Deviation 49.7 fL RDW Coefficient of Variation 14.3 % Immature Granulocyte % (Auto) 0.1 % Immature Granulocyte # (Auto) 0.01 K/uL Sodium Level 141 mmol/L Potassium Level 4.4 mmol/L Chloride Level 109 mmol/L Carbon Dioxide Level 25 mmol/L Anion Gap 7.0 mmol/L Blood Urea Nitrogen 25 mg/dl Creatinine 1.69 mg/dl Estimated GFR () 34.8 Estimated GFR (Non- 30.0 BUN/Creatinine Ratio 14.7 Random Glucose 136 mg/dl Calcium Level 9.7 mg/dl Total Creatine Kinase 48 U/L Creatine Kinase MB 1.2 ng/ml Creatine Kinase MB Ratio 2.5 Troponin I < 0.015 ng/ml Bedside Troponin I < 0.030 ng/ml Lyme Disease IgG Antibody NEG Lyme Disease IgM Antibody NEG Bedside Glucose 94 mg/dl Test 06/01/17 23:42 06/01/17 23:45 06/02/17 05:06 06/02/17 11:23 Troponin I 0.075 ng/ml 0.064 ng/ml Bedside Glucose 100 mg/dl White Blood Count 8.32 K/uL 7.09 K/uL Red Blood Count 4.05 M/uL 4.21 M/uL Hemoglobin 12.5 g/dL 13.0 g/dL Hematocrit 38.8 % 40.3 % Mean Corpuscular Volume 95.8 fL 95.7 fL Mean Corpuscular Hemoglobin 30.9 pg 30.9 pg Mean Corpuscular Hemoglobin Concent 32.2 g/dl 32.3 g/dl RDW Standard Deviation 51.2 fL 51.4 fL RDW Coefficient of Variation 14.4 % 14.6 % Platelet Count 193 K/uL 192 K/uL Mean Platelet Volume 9.7 fL 9.5 fL Sodium Level 140 mmol/L Potassium Level 4.4 mmol/L Chloride Level 109 mmol/L Carbon Dioxide Level 26 mmol/L Anion Gap 5.0 mmol/L Blood Urea Nitrogen 24 mg/dl Creatinine 1.35 mg/dl Est Creatinine Clear Calc Drug Dose 54.5 ml/min Estimated GFR () 45.7 Estimated GFR (Non- 39.4 BUN/Creatinine Ratio 17.9 Random Glucose 101 mg/dl Estimated Average Glucose 117 mg/dl Hemoglobin A1c 5.7 % Calcium Level 9.4 mg/dl Phosphorus Level 3.7 mg/dl Magnesium Level 2.0 mg/dl Thyroid Stimulating Hormone (TSH) 0.645 uIu/ml Neutrophils (%) (Auto) 78.7 % Lymphocytes (%) (Auto) 12.8 % Monocytes (%) (Auto) 6.8 % Eosinophils (%) (Auto) 0.8 % Basophils (%) (Auto) 0.6 % Neutrophils # (Auto) 5.58 K/uL Lymphocytes # (Auto) 0.91 K/uL Monocytes # (Auto) 0.48 K/uL Eosinophils # (Auto) 0.06 K/uL Basophils # (Auto) 0.04 K/uL Immature Granulocyte % (Auto) 0.3 % Immature Granulocyte # (Auto) 0.02 K/uL Prothrombin Time 10.6 SECONDS Prothromb Time International Ratio 1.0 Activated Partial Thromboplast Time 23.8 SECONDS Partial Thromboplastin Ratio 0.9 Test 06/02/17 11:32 06/02/17 12:47 Bedside Glucose 104 mg/dl Troponin I 0.036 ng/ml Problem Qualifiers (1) Chest pain: Chest pain type: other chest pain Qualified Codes: R07.89 - Other chest pain
[2017-06-02 17:05] LABS: PTT PATIENT 45.8 SECONDS (21.0-31.0)
[2017-06-02] MEDS: HYDROmorphone INJ 1 MG/ML SYR IV PRN (18:01)
[2017-06-02] MEDS ORDERED: HEPARIN IV BOLUS 4,000 UNIT in SYRINGE 0 ML IV ONE (18:45)
[2017-06-02] MEDS ORDERED: ONDANSETRON INJ 2 MG/ML 2 ML VIAL ONE (19:30)
[2017-06-02] MEDS ORDERED: ONDANSETRON INJ 2 MG/ML 2 ML VIAL IV ONE (20:00)
[2017-06-02] MEDS ORDERED: FENTANYL CITRATE INJ 50 MCG/1 ML 2 ML VIAL IV ONE (20:45)
[2017-06-03] VITALS (16 sets, daily range): BP systolic 137–180; BP diastolic 56–87; PULSE 62–84; TEMP 36.6–37.4; O2SAT 90–99
[2017-06-03] MEDS ORDERED: HydrALAZINE HCL 20 MG/ML VIAL IV. STA (00:48)
[2017-06-03] MEDS: HEPARIN 25,000 UNIT/500ML D5W 500 ML IV PRN (00:58)
[2017-06-03] MEDS: HYDROmorphone INJ 1 MG/ML SYR IV PRN ×3 (00:59→15:39)
[2017-06-03 01:52] LABS: PTT PATIENT 136.8 SECONDS (21.0-31.0)
[2017-06-03 03:22] LABS: HEMATOCRIT 40.5 % (37-47); HEMOGLOBIN 12.8 g/dL (12.0-16.0); MEAN CELL VOLUME 96.4 fL (80-100); MEAN CORPUSCULAR HEMOGLOBIN 30.5 pg (25-34); MEAN CORPUSCULAR HGB CONC 31.6 g/dl (32-36); MEAN PLATELET VOLUME 9.9 fL (7.4-10.4); PLATELET COUNT 183 K/uL (130-400); RED CELL DISTRIBUTION WIDTH CV 14.4 % (11.5-14.5); RED CELL DISTRIBUTION WIDTH SD 51.2 fL (36.4-46.3); WHITE BLOOD COUNT 9.25 K/uL (4.8-10.8)
[2017-06-03 03:44] LABS: CALCIUM 9.4 mg/dl (8.5-10.1); CREATININE 1.16 mg/dl (0.60-1.20); PHOSPHORUS 3.5 mg/dl (2.5-4.9); POTASSIUM 4.5 mmol/L (3.5-5.1)
[2017-06-03 03:52] LABS: PTT PATIENT 74.8 SECONDS (21.0-31.0)
[2017-06-03] MEDS: INSULIN ASPART 100 UNITS/ML 3 ML PEN SC SCH ×4 (06:45→21:00)
--- NOTE | 2017-06-03 06:51 | DIAGNOSTIC IMAGING REPORT ---
CHEST ONE VIEW PORTABLE HISTORY: 72 years-old Female heart block COMPARISON: Chest radiograph 06/02/2017 TECHNIQUE: Supine AP view of the chest FINDINGS: Cardiac silhouette is again mildly enlarged. Mild tortuosity of the thoracic aorta. There is no pneumothorax, pleural effusion, focal airspace consolidation or overt pulmonary edema. Linear subsegmental left basilar opacities suggest atelectasis. Pacer lead from an inferior approach through the IVC appears unchanged. The bones appear grossly intact. IMPRESSION: Mild Cardiomegaly without acute process. The above report was generated using voice recognition software. It may contain grammatical, syntax or spelling errors. Electronically signed by: Tyler Boswell M.D. 06/03/2017 6:50 AM Dictated Date/Time: 06/03/2017 6:48 AM
[2017-06-03] MEDS ORDERED: [UNRECOGNIZED DRUG - REMARK] ONE (08:30)
[2017-06-03] MEDS: PANTOprazole INJ 40 MG in SYRINGE 0 ML IV SCH (08:52)
[2017-06-03] MEDS ORDERED: ONDANSETRON INJ 2 MG/ML 2 ML VIAL ONE ×3 (08:53→11:13)
[2017-06-03] MEDS ORDERED: ONDANSETRON INJ 2 MG/ML 2 ML VIAL IV PRN (09:00)
[2017-06-03] MEDS ORDERED: MAGNESIUM SULFATE 1GM / D5W 1 GM in PREMIXED IN D5W 100 ML IV ONE (09:15)
[2017-06-03] MEDS ORDERED: BACITRACIN 50000 UNIT VIAL ONE (10:57)
[2017-06-03] MEDS ORDERED: LIDOCAINE HCL 1% 20 ML VIAL ONE (10:57)
[2017-06-03] MEDS ORDERED: CEFAZOLIN SOD 1 GM VIAL ONE (11:08)
--- NOTE | 2017-06-03 11:14 | Cardiology Follow-Up ---
Subjective Date of Service: Jun 03, 2017. Pt evaluation today including: conversation w/ patient, physical exam, lab review, review of studies, conversation w/ technical support consultant, review of inpatient medication list History of Present Illness This is a 72-year-old woman who has a history of nonischemic cardiomyopathy diagnosed in 2007 with a catheterization showing normal coronary arteries in July 2016. Her ejection fraction improved with medical therapy, at catheterization July 2016 it was felt to be 50-55%. In addition she has a left lower extremity DVT and hematology has recommended lifelong anticoagulation. She is therefore been maintained on eliquis and losartan. She has been maintained on carvedilol 25 mg twice a day as well as Eliquis. Today she began to feel very weak and short of breath while walking, had to sit down and was brought to the emergency room. In the emergency room she was found to be in complete heart block with a heart rate in the 20s. The heart rate did not respond well to dopamine, she was also hypotensive with a blood pressure initially in the 60s which did improve somewhat with dopamine. She was conscious at that time although did not feel well, however she had episode of asystole in the emergency room and external pacing was applied. She is very uncomfortable with external pacing but regained consciousness quickly. The temporary external pacing was stopped and she again began to become unresponsive. It was therefore restarted, she is intubated and sedated. Prior to intubation and while she was awake she agreed to have temporary pacing. She was therefore taken to the slab tripper for temporary pacing. With a temporary pacemaker in place she recovered quickly and was able to be extubated. She did not have any prolonged period of asystole. She regained evidence of intermittent AV conduction as early as 7:00 PM on 06/01, although had frequent pacing after that but that may have been due to the rate of the pacemaker not continued heart block. The pacemaker has remained in place, on the morning of 06/02/2017 the rate was turned down to 50 and she has had no further pacing. An electrocardiogram during sinus rhythm shows left posterior fascicular block and right bundle branch block (bifascicular block). Today she feels well and has no complaints other than being tired of lying in bed supine. Social History Smoking Status: Unknown if Ever Smoked History of Alcohol Use: No Review of Systems Respiratory: No cough, No wheezing, No shortness of breath Cardiac: + see HPI, + problem reported (extreme weakness and fatigue), No chest pain, No orthopnea, No PND, No edema, No palpitations Medications No cardiovascular medications Objective Vital Signs Past 12 Hours Date Time Temp Pulse Resp B/P (MAP) Pulse Ox O2 Delivery O2 Flow Rate FiO2 06/03/17 10:21 74 18 138/59 (85) 99 Room Air 06/03/17 08:00 Room Air 06/03/17 08:00 Room Air 06/03/17 08:00 67 18 152/70 (97) 98 Room Air 06/03/17 05:01 75 15 146/62 (90) 99 06/03/17 04:01 37.0 77 16 152/62 (92) 99 Nasal Cannula 2.0 06/03/17 04:00 Room Air 06/03/17 03:01 78 16 139/63 (88) 99 06/03/17 02:01 83 16 151/62 (91) 98 Nasal Cannula 2.0 06/03/17 01:25 82 17 140/56 (84) 98 06/03/17 01:01 68 17 173/71 (105) 99 06/03/17 00:47 62 14 172/72 (105) 99 06/03/17 00:36 67 17 180/65 (103) 99 06/03/17 00:01 36.6 65 18 175/65 (101) 99 Nasal Cannula 2.0 06/03/17 00:00 67 18 99 06/02/17 23:59 Room Air Last Recorded Weight-Kilograms: 133.000 Physical Exam Constitutional: General Apperance: obese Level of Distress: NAD Lungs: Respiratory effort: no dyspnea, good air movement Auscultation: breath sounds normal, no wheezing Cardiovascular: Heart Auscultation: RRR, no murmurs, no rubs, no gallops Peripheral Pulses: Bruits: none appreciated Extremities: no edema Data Laboratory Results: Last 24 Hours Test 06/02/17 11:23 06/02/17 11:32 06/02/17 12:47 06/02/17 16:18 White Blood Count 7.09 K/uL Red Blood Count 4.21 M/uL Hemoglobin 13.0 g/dL Hematocrit 40.3 % Mean Corpuscular Volume 95.7 fL Mean Corpuscular Hemoglobin 30.9 pg Mean Corpuscular Hemoglobin Concent 32.3 g/dl Platelet Count 192 K/uL Mean Platelet Volume 9.5 fL Neutrophils (%) (Auto) 78.7 % Lymphocytes (%) (Auto) 12.8 % Monocytes (%) (Auto) 6.8 % Eosinophils (%) (Auto) 0.8 % Basophils (%) (Auto) 0.6 % Neutrophils # (Auto) 5.58 K/uL Lymphocytes # (Auto) 0.91 K/uL Monocytes # (Auto) 0.48 K/uL Eosinophils # (Auto) 0.06 K/uL Basophils # (Auto) 0.04 K/uL RDW Standard Deviation 51.4 fL RDW Coefficient of Variation 14.6 % Immature Granulocyte % (Auto) 0.3 % Immature Granulocyte # (Auto) 0.02 K/uL Prothrombin Time 10.6 SECONDS Prothromb Time International Ratio 1.0 Activated Partial Thromboplast Time 23.8 SECONDS Partial Thromboplastin Ratio 0.9 Bedside Glucose 104 mg/dl 98 mg/dl Troponin I 0.036 ng/ml Test 06/02/17 16:28 06/02/17 19:20 06/02/17 20:44 06/03/17 01:09 Activated Partial Thromboplast Time 45.8 SECONDS 136.8 SECONDS Partial Thromboplastin Ratio 1.8 5.3 Bedside Glucose 104 mg/dl Troponin I 0.027 ng/ml Test 06/03/17 03:02 06/03/17 03:12 06/03/17 09:48 Activated Partial Thromboplast Time 74.8 SECONDS 39.0 SECONDS Partial Thromboplastin Ratio 2.9 1.5 White Blood Count 9.25 K/uL Red Blood Count 4.20 M/uL Hemoglobin 12.8 g/dL Hematocrit 40.5 % Mean Corpuscular Volume 96.4 fL Mean Corpuscular Hemoglobin 30.5 pg Mean Corpuscular Hemoglobin Concent 31.6 g/dl RDW Standard Deviation 51.2 fL RDW Coefficient of Variation 14.4 % Platelet Count 183 K/uL Mean Platelet Volume 9.9 fL Sodium Level 138 mmol/L Potassium Level 4.5 mmol/L Chloride Level 106 mmol/L Carbon Dioxide Level 27 mmol/L Anion Gap 5.0 mmol/L Blood Urea Nitrogen 18 mg/dl Creatinine 1.16 mg/dl Est Creatinine Clear Calc Drug Dose 63.3 ml/min Estimated GFR () 54.9 Estimated GFR (Non- 47.3 BUN/Creatinine Ratio 15.5 Random Glucose 119 mg/dl Calcium Level 9.4 mg/dl Phosphorus Level 3.5 mg/dl Magnesium Level 1.8 mg/dl EKG: Yesterday during sinus rhythm, sinus rhythm with right bundle branch block and left posterior fascicular block, this morning's electrocardiogram is similar. Telemetry reviewed: No pacing since the morning of 06/02/2017 Assessment and Plan #1. 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 It is possible CHB is aggravated by beta-blockade but she has been on the same dose for a long time , she took it the morning of 06/01/2017 and had evidence of intact AV conduction after the temporary pacemaker was in place at 7 PM when it should still have been present in her system. Her Lyme titer is negative. The heart block is intermittent and likely due to His-Purkinje disease and probably not a been related to the beta-blockade. We should put in a pacemaker with evidence of significant conduction disease and poor escape rhythm on presentation. She is pacing infrequently currently, therefore will likely not have a high pacing percentage at least in the near future. I discussed the indications, procedure, risks and alternatives of pacemaker implantation with her and she understands and agrees to proceed. Conscious sedation and its risks were also discussed with her and she is agreeable. Consent obtained for pacemaker implantation and for conscious sedation. #2. Cardiomyopathy: As of July of this year her cardiomyopathy has resolved with normalization of her ejection fraction. She had normal coronary arteries at catheterization. We should maintain beta blockade following pacemaker implantation to minimize the risk of recurrence. Hopefully she will not pace enough to create a recurrence of her cardiomyopathy, to minimize that risk I am going to try to place the ventricular lead on the intraventricular septum. 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 Biventricular pacing is currently not indicated. Thank you for allowing me to participate in her care.
--- NOTE | 2017-06-03 11:15 | Pre Sedation Assessment ---
Pre Sedation Assessment General Date of Sedation: Jun 03, 2017. Vital Signs Past 12 Hours Date Time Temp Pulse Resp B/P (MAP) Pulse Ox O2 Delivery O2 Flow Rate FiO2 06/03/17 10:21 74 18 138/59 (85) 99 Room Air 06/03/17 08:00 Room Air 06/03/17 08:00 Room Air 06/03/17 08:00 67 18 152/70 (97) 98 Room Air 06/03/17 05:01 75 15 146/62 (90) 99 06/03/17 04:01 37.0 77 16 152/62 (92) 99 Nasal Cannula 2.0 06/03/17 04:00 Room Air 06/03/17 03:01 78 16 139/63 (88) 99 06/03/17 02:01 83 16 151/62 (91) 98 Nasal Cannula 2.0 06/03/17 01:25 82 17 140/56 (84) 98 06/03/17 01:01 68 17 173/71 (105) 99 06/03/17 00:47 62 14 172/72 (105) 99 06/03/17 00:36 67 17 180/65 (103) 99 06/03/17 00:01 36.6 65 18 175/65 (101) 99 Nasal Cannula 2.0 06/03/17 00:00 67 18 99 06/02/17 23:59 Room Air Review Cardiovascular: regular rate, rhythm Lungs: lungs clear Pre-Sedation Airway Assessment Smoking Status: Unknown if Ever Smoked Hx of Sleep Apnea: No Hx of difficult intubation: No Short Thick Neck: Yes Thyro-mental Distance: > 3 Finger Breadths Mallampati Classification: Class II ASA Classification: Class II NPO Status Date of Last Intake of Fluids: Jun 02, 2017 Date of Last Intake of Solids: Jun 02, 2017 Procedure Planning Contraindications for Sedation: None Current Medications Reviewed: Yes Notes The planned sedation has been discussed with the patient. Informed Consent was obtained. I have identified the patient, determined the appropriateness of sedation and have assessed the patient immediately prior to the procedure. All medicine(s) and interventions are by my order.
[2017-06-03] MEDS ORDERED: FENTANYL CITRATE INJ 50 MCG/1 ML 2 ML VIAL ONE ×2 (11:16→12:39)
[2017-06-03] MEDS ORDERED: MIDAZOLAM HCL 5 MG/ML 1 ML VIAL ONE (11:16)
[2017-06-03] MEDS: SODIUM CHLORIDE 0.9% 1000ML 1,000 ML IV SCH (12:00)
[2017-06-03] MEDS ORDERED: BACITRACIN OINT 0.9 GM PKT ONE (12:26)
[2017-06-03] MEDS ORDERED: ACETAMINOPHEN 325 MG TAB PO PRN (13:00)
--- NOTE | 2017-06-03 13:03 | [facility] Operative Report ---
Operative Report Operative Date Jun 03, 2017. Pre-Operative Diagnosis Intermittent complete heart block Post-Operative Diagnosis same Procedure(s) Performed Left subclavian venogram Dual chamber pacemaker implantation Surgeon Dr. Lord Sewing Machine Operator Surgeon(s) none Estimated Blood Loss 50 cc Findings Good lead position with the ventricular lead on the septum, good atrial lead position. Good measurements. Specimens None Anesthesia local with sedation Complication(s) None Disposition Surgical ICU Description of Procedure After obtaining informed consent for the procedure, the patient was brought to the laboratory and prepped and draped in the standard sterile manner. The left prepectoral region was anesthetized with 1% lidocaine local anesthetic and dye was injected in the left arm IV site to opacify the left subclavian vein. The subclavian vein was identified and found to be free of obstruction. Left axillary venipuncture was performed by percutaneous technique and a guidewire placed through the left subclavian vein into the superior vena cava. The area was further infiltrated with 1% lidocaine local anesthetic and a 5 cm incision was made parallel to the left clavicle and 2 cm below it and carried down to the anterior pectoralis fascia. A pacemaker pocket was formed by blunt dissection anterior to the pectoralis fascia and a bacitracin-soaked sponge (50, 000 units in 50 cc normal saline solution) was placed in the pocket. An 8 [place] Medtronic lead introducer was placed over the guidewire into the left subclavian vein, the dilator and guidewire were removed and a bipolar active fixation steroid tipped ventricular lead was advanced through the introducer into the superior vena cava. A guidewire was placed through the introducer and the introducer was stripped from the lead and guidewire. Another 8 [place] Medtronic lead introducer was placed over the guidewire into the left subclavian vein, the dilator and guidewire were removed and a bipolar active fixation steroid tipped atrial lead was advanced through the introducer into the superior vena cava. A guidewire was placed back through the introducer and the introducer was stripped from the lead and guidewire. Using a curved stylette the ventricular lead was advanced through the right ventricular outflow tract into the pulmonary artery and then using a straight stylette was positioned high in the right ventricular septum. The screw was extended fixing the lead in position. Pacing and sensing thresholds were evaluated in bipolar configuration and are recorded on the implant data sheet. Using a curved stylette the atrial lead was positioned in the region of the atrial appendage and the screw extended fixing the lead in position. Pacing and sensing thresholds were evaluated in bipolar configuration and are recorded on the implant data sheet. Once the leads were in position they were attached to the anterior pectoralis fascia using 2 sutures of 2-0 silk around each lead collar. The bacitracin- soaked sponge was removed from the pocket, hemostasis was obtained, the pacemaker was attached to the leads and placed in the pocket with the leads coiled beneath it. The incision was closed with a running double subcutaneous closure of 3-0 V-Lock absorbable suture, followed by running subcuticular skin closure of 4-0 V-Lock absorbable suture. Bacitracin ointment was placed on the incision and a pressure dressing applied. I attest to the content of the Intraoperative Record and any orders documented therein. Any exceptions are noted below.
--- NOTE | 2017-06-03 13:03 | Post Sedation Assessment ---
Post Sedation Assessment General Date of Sedation Jun 03, 2017. Vital Signs: Vital Signs Past 12 Hours Date Time Temp Pulse Resp B/P (MAP) Pulse Ox O2 Delivery O2 Flow Rate FiO2 06/03/17 12:50 74 18 166/88 (114) 95 Room Air 06/03/17 12:40 74 18 168/80 (109) 95 Room Air 06/03/17 10:21 74 18 138/59 (85) 99 Room Air 06/03/17 08:00 Room Air 06/03/17 08:00 Room Air 06/03/17 08:00 67 18 152/70 (97) 98 Room Air 06/03/17 05:01 75 15 146/62 (90) 99 06/03/17 04:01 37.0 77 16 152/62 (92) 99 Nasal Cannula 2.0 06/03/17 04:00 Room Air 06/03/17 03:01 78 16 139/63 (88) 99 06/03/17 02:01 83 16 151/62 (91) 98 Nasal Cannula 2.0 06/03/17 01:25 82 17 140/56 (84) 98 Post Procedure Recovery Score Activity: (2) Moves 4 extremities * Respiration: (2) Deep breath/cough Circulation: (2) +/-20% PreAnes Value Consciousness: (2) Fully Awake Oxygen Saturation: (2) > 92% On Room Air Post Anesthesia Score: 10 Discharge Sedation Level of Care: Fast Track Phase II Post Sedation Plan On clinical assessment, the patient appears to have tolerated the sedation without complications. Patient is recovering as anticipated. Patient will continue to be monitored by nursing and may be discharged when sedation discharge criteria are met per below protocol. Upon Completions of procedure and additional 15 minutes continue every 5 minute vital signs and the P.A.R. score; then discharge to a Phase I or Fast Track to Phase II per the following guidelines: * Discharge Patient to appropriate Phase II area if PAR is 8 or greater or return to pre- procedure baseline. The post - procedure orders will be as directed. * If PAR score is less than 8 or not return to pre-procedure baseline then patient will follow Phase I monitoring till PAR is reached for Phase II. The Phase I may be done in procedure room or may call to secure a Phase I area. * If naloxone or flumazenil are used for reversal, hold in Phase I for an additional 60 -120 minutes before discharge to Phase II. Please call the Sedation Physician to re-evaluate and complete post-note for discharge to Phase II area. Do NOT discharge from procedure sedation or Phase 1 until post- sedation evaluation note is complete by procedure /sedation MD Sedation Discharge Instructions to be given to the patient at discharge to home.
--- NOTE | 2017-06-03 14:41 | Progress Note ---
Internal Med Progress Note Date of Service: Jun 03, 2017. Provider Documentation: SUBJECTIVE: Seen and examined at bedside Had pacemaker implantation today Denies chest pain, SOB, dizziness Family at bedside Reports mild headache No other complaints OBJECTIVE: Vital Signs-as noted below Physical Exam: General Appearance:Obese, no apparent distress Head: normocephalic, Atraumatic Eyes: normal inspection, EOMI, PERRL Neck: supple, Trachea midline Respiratory/Chest: Normal breath sounds, CTA Chest: Pacemaker insertion on Let side of chest in bandage Cardiovascular: S1, S2, No murmur Abdomen/GI:Soft, Non tender, Bowel sounds present Extremities/Musculoskelatal:normal inspection, Chronic LLE edema Neurologic/Psych:AAOX3, grossly no focal neurological deficits Skin: normal color, warm Lab data as noted below. ASSESSMENT & PLAN: COMPLETE HEART BLOCK Could be secondary to His-Purkinje disease aggravated by beta blockers S/P Dual chamber pacemaker implantation POD # 0 Resumed carvedilol 25mg BID Magnesium, Potassium levels normal Lyme screen: Negative TSH: normal May need permanent Pacemaker placement Appreciate Cardiology Input NONISCHEMIC CARDIOMYOPATHY Cath 2017 showed normal coronaries. Resumed Carvedilol losartan, nitrates held for now Cardiology following HYPERTENSION Stable Continue Carvedilol Monitor KARINA on CKD III Resolved Losartan held on IV fluids Monitor renal function DM II: Hold metformin Hgb A1C: 5.7 Monitor Blood sugar levels H/O LLE DVT: Plan to resume Apixaban in AM MORBID OBESITY: BMI:45.9 GI Px: PPI DVT Px: Resume apixaban when able DISPOSITION Continue monitor in Tele Vital Signs: Date Time Temp Pulse Resp B/P (MAP) Pulse Ox O2 Delivery O2 Flow Rate FiO2 06/03/17 13:30 64 18 137/66 (89) 90 Room Air 06/03/17 13:15 Room Air 06/03/17 12:50 74 18 166/88 (114) 95 Room Air 06/03/17 12:40 74 18 168/80 (109) 95 Room Air 06/03/17 10:21 74 18 138/59 (85) 99 Room Air 06/03/17 08:00 Room Air 06/03/17 08:00 Room Air 06/03/17 08:00 67 18 152/70 (97) 98 Room Air 06/03/17 05:01 75 15 146/62 (90) 99 06/03/17 04:01 37.0 77 16 152/62 (92) 99 Nasal Cannula 2.0 06/03/17 04:00 Room Air 06/03/17 03:01 78 16 139/63 (88) 99 06/03/17 02:01 83 16 151/62 (91) 98 Nasal Cannula 2.0 06/03/17 01:25 82 17 140/56 (84) 98 06/03/17 01:01 68 17 173/71 (105) 99 06/03/17 00:47 62 14 172/72 (105) 99 06/03/17 00:36 67 17 180/65 (103) 99 06/03/17 00:01 36.6 65 18 175/65 (101) 99 Nasal Cannula 2.0 06/03/17 00:00 67 18 99 06/02/17 23:59 Room Air 06/02/17 23:05 68 19 167/74 (105) 100 Nasal Cannula 2.0 06/02/17 22:01 63 15 164/70 (101) 99 Nasal Cannula 2.0 06/02/17 21:01 63 18 152/66 (94) 89 06/02/17 20:01 36.7 64 20 163/68 (99) 94 Nasal Cannula 06/02/17 20:00 Room Air 06/02/17 19:01 61 18 159/69 (99) 93 06/02/17 18:12 37.2 62 16 154/68 (96) 93 Room Air 06/02/17 16:18 64 16 140/54 (82) 96 Room Air 06/02/17 16:00 Room Air Lab Results: Results Past 24 Hours Test 06/02/17 16:18 06/02/17 16:28 06/02/17 19:20 06/02/17 20:44 Range/Units Bedside Glucose 98 104 70-90 mg/dl Activated Partial Thromboplast Time 45.8 21.0-31.0 SECONDS Partial Thromboplastin Ratio 1.8 Troponin I 0.027 0-0.045 ng/ml Test 06/03/17 01:09 06/03/17 03:02 06/03/17 03:12 06/03/17 09:48 Range/Units Activated Partial Thromboplast Time 136.8 74.8 39.0 21.0-31.0 SECONDS Partial Thromboplastin Ratio 5.3 2.9 1.5 White Blood Count 9.25 4.8-10.8 K/uL Red Blood Count 4.20 4.2-5.4 M/uL Hemoglobin 12.8 12.0-16.0 g/dL Hematocrit 40.5 37-47 % Mean Corpuscular Volume 96.4 80-100 fL Mean Corpuscular Hemoglobin 30.5 25-34 pg Mean Corpuscular Hemoglobin Concent 31.6 32-36 g/dl RDW Standard Deviation 51.2 36.4-46.3 fL RDW Coefficient of Variation 14.4 11.5-14.5 % Platelet Count 183 130-400 K/uL Mean Platelet Volume 9.9 7.4-10.4 fL Sodium Level 138 136-145 mmol/L Potassium Level 4.5 3.5-5.1 mmol/L Chloride Level 106 98-107 mmol/L Carbon Dioxide Level 27 21-32 mmol/L Anion Gap 5.0 3-11 mmol/L Blood Urea Nitrogen 18 7-18 mg/dl Creatinine 1.16 0.60-1.20 mg/dl Est Creatinine Clear Calc Drug Dose 63.3 ml/min Estimated GFR () 54.9 Estimated GFR (Non- 47.3 BUN/Creatinine Ratio 15.5 10-20 Random Glucose 119 70-99 mg/dl Calcium Level 9.4 8.5-10.1 mg/dl Phosphorus Level 3.5 2.5-4.9 mg/dl Magnesium Level 1.8 1.8-2.4 mg/dl Test 06/03/17 13:41 Range/Units Bedside Glucose 103 70-90 mg/dl
--- NOTE | 2017-06-03 16:14 | Critical Care Progress Note ---
Critical Care Progress Note Date of Service Jun 03, 2017. ICU Day ICU Day Number: [address] Zavala Subjective Patient seen and examined at bedside this morning. No change from yesterday regarding EKG. Patient continues with nausea but is well controlled with Zofran. No vomiting. Patient denies chest pain or tightness. No shortness of breath. Patient is reporting headache and was treated with Dilaudid. No other new complaints. Objective Vital Signs - as noted below Laboratory Data - as noted below Physical Exam: General - NAD. Laying supine in bed Eyes - No icterus, gaze conjugate. PERRL ENT - Mucosa moist, no lesions or candidiasis. Neck - Supple, No JVD. Lungs - No bronchospasm, rales, or rhonchi. Good respiratory effort Heart - Regular, rate controlled in the 70s. Pacer pads in place Abdomen - Soft, NT, ND, BS present Extremities - No edema, pedal pulses intact Neuro - A&OX3 Current SOFA Score SOFA Score Response (Comments) Value Platelets (x10) > 150 0 Bilirubin (mg/dL) < 1.2 0 [place] Score 15 0 Level of Hypotension No Hypotension 0 Creatinine (mg/dL) 1.2 - 1.9 1 Total 1 Assessment & Plan (1) Status post cardiac catheterization (2) Complete heart block (3) Chest pain (4) Cardiomyopathy, nonischemic (5) Diabetes mellitus, type 2 (6) History of deep venous thrombosis CV: * Temporary Pacemaker insertion by Dr. Serrano for complete heart block in the cardiac catheterization lab * Lyme titer negative * Dr. Bhagat consulted, appreciate input * Pacemaker placement planned for today * Continues to maintain a spontaneous heart rate in the 70s - pacer set at 50 bpm at 10 mA * Home Cardiac Medication currently held * Last ECHO in 2017 demonstrated EF 50-55% Neuro: * Pt continues to report arthritic pain * Continue ordered Ultram 100 q6h * Patient complained of headache today with no focal neurological deficits - when necessary analgesia * A&OX3 Resp: * Resolved respiratory insufficiency * Intubated due to respiratory failure secondary to complete cardiac block and episode of asystole, Extubated s/p temporary pacemaker insertion. * No documented hypoxia or hypercapnia * Supplemental oxygen as required * Adequate saturations on 2L nasal cannula; continue to wean as tolerated Fluids/Renal: * Continue Normosol @80mL/hr until surgery or pacemaker placement. * Diet to be resumed after pacemaker placed * KARINA Cr 1.69 on admission - now 1.16 * Valera in place. Fluid balance currently - 200mL. remove Valera catheter per nursing protocol * Serial labs and strict I&Os ID: * Afebrile, no leukocytosis * No focal infective source noted GI/Nutrition: * Advance diet as tolerated after pacemaker placement. Heme: * Eliquis currently held for procedure. 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 Please refer to Dr. Pilo Zavala's addendum for further recommendations. I have personally evaluated and examined this patient. I agree with assessment and plan of Devorah Fan PA-C. I saw the patient upon her return from the cardiac civil laboratory technician status post pacemaker. Discussion was to went to restart the heparin infusion, per cardiology no heparin at this time. Will proceed with mechanical prophylaxis. Stable for downgraded status post pacemaker placement to telemetry Consults & Procedures Consultants: Cardiology - Appreciate Dr. Serrano and Dr. Lord input Procedures: Transcutaneous pacer placed in right femoral site 06/01/2017 and removed 06/03/[address] Lord 06/03/17 Data Medications: Current Inpatient Medications Medications (Trade) Dose Ordered Sig/Zac Route Start Time Stop Time Status Last Admin Dose Admin Pantoprazole Sodium 40 mg/ Syringe 10 ml @ 5 mls/min DAILY@1100 IV 06/02/17 11:00 07/02/17 10:59 06/03/17 08:52 5 MLS/MIN Miscellaneous Information (Icu Protocol For Hyperglycemia) 1 ea PRN PRN N/A 06/01/17 17:45 06/03/17 17:44 Tramadol HCl (Ultram Tab) 100 mg QID PRN PO 06/01/17 22:15 07/01/17 22:14 06/02/17 13:24 100 MG Insulin Aspart (novoLOG ASPART) SLIDING SCALE ACHS SC 06/02/17 11:30 07/02/17 11:29 Hydromorphone HCl (Dilaudid Inj) 1 mg Q6H PRN IV 06/02/17 16:45 06/16/17 16:44 06/03/17 15:39 1 MG Ondansetron HCl (Zofran Inj) 4 mg Q4H PRN IV 06/03/17 09:00 07/03/17 08:59 Cefazolin Sodium 2000 mg/Syringe 10 ml @ 2.5 mls/min Q8H IV 06/03/17 20:00 06/04/17 19:59 Acetaminophen (Tylenol Tab) 650 mg Q4H PRN PO 06/03/17 13:00 07/03/17 12:59 Apixaban (Eliquis Tab) 2.5 mg BID PO 06/04/17 09:00 07/04/17 08:59 Carvedilol (Coreg Tab) 25 mg BID PO 06/03/17 21:00 07/03/17 20:59 I & O: 24-Hour Column 06/04/17 07:59 Intake Total 350 ml Output Total 600 ml Balance -250 ml Vital Signs: Date Time Temp Pulse Resp B/P (MAP) Pulse Ox O2 Delivery O2 Flow Rate FiO2 06/03/17 13:30 64 18 137/66 (89) 90 Room Air 06/03/17 13:15 Room Air 06/03/17 12:50 74 18 166/88 (114) 95 Room Air 06/03/17 12:40 74 18 168/80 (109) 95 Room Air 06/03/17 10:21 74 18 138/59 (85) 99 Room Air 06/03/17 08:00 Room Air 06/03/17 08:00 Room Air 06/03/17 08:00 67 18 152/70 (97) 98 Room Air 06/03/17 05:01 75 15 146/62 (90) 99 06/03/17 04:01 37.0 77 16 152/62 (92) 99 Nasal Cannula 2.0 06/03/17 04:00 Room Air 06/03/17 03:01 78 16 139/63 (88) 99 06/03/17 02:01 83 16 151/62 (91) 98 Nasal Cannula 2.0 06/03/17 01:25 82 17 140/56 (84) 98 06/03/17 01:01 68 17 173/71 (105) 99 06/03/17 00:47 62 14 172/72 (105) 99 06/03/17 00:36 67 17 180/65 (103) 99 06/03/17 00:01 36.6 65 18 175/65 (101) 99 Nasal Cannula 2.0 06/03/17 00:00 67 18 99 06/02/17 23:59 Room Air 06/02/17 23:05 68 19 167/74 (105) 100 Nasal Cannula 2.0 06/02/17 22:01 63 15 164/70 (101) 99 Nasal Cannula 2.0 06/02/17 21:01 63 18 152/66 (94) 89 06/02/17 20:01 36.7 64 20 163/68 (99) 94 Nasal Cannula 06/02/17 20:00 Room Air 06/02/17 19:01 61 18 159/69 (99) 93 06/02/17 18:12 37.2 62 16 154/68 (96) 93 Room Air 06/02/17 16:18 64 16 140/54 (82) 96 Room Air Laboratory Results: Last 24 Hours Test 06/02/17 16:18 06/02/17 16:28 06/02/17 19:20 06/02/17 20:44 Bedside Glucose 98 mg/dl 104 mg/dl Activated Partial Thromboplast Time 45.8 SECONDS Partial Thromboplastin Ratio 1.8 Troponin I 0.027 ng/ml Test 06/03/17 01:09 06/03/17 03:02 06/03/17 03:12 06/03/17 09:48 Activated Partial Thromboplast Time 136.8 SECONDS 74.8 SECONDS 39.0 SECONDS Partial Thromboplastin Ratio 5.3 2.9 1.5 White Blood Count 9.25 K/uL Red Blood Count 4.20 M/uL Hemoglobin 12.8 g/dL Hematocrit 40.5 % Mean Corpuscular Volume 96.4 fL Mean Corpuscular Hemoglobin 30.5 pg Mean Corpuscular Hemoglobin Concent 31.6 g/dl RDW Standard Deviation 51.2 fL RDW Coefficient of Variation 14.4 % Platelet Count 183 K/uL Mean Platelet Volume 9.9 fL Sodium Level 138 mmol/L Potassium Level 4.5 mmol/L Chloride Level 106 mmol/L Carbon Dioxide Level 27 mmol/L Anion Gap 5.0 mmol/L Blood Urea Nitrogen 18 mg/dl Creatinine 1.16 mg/dl Est Creatinine Clear Calc Drug Dose 63.3 ml/min Estimated GFR () 54.9 Estimated GFR (Non- 47.3 BUN/Creatinine Ratio 15.5 Random Glucose 119 mg/dl Calcium Level 9.4 mg/dl Phosphorus Level 3.5 mg/dl Magnesium Level 1.8 mg/dl Test 06/03/17 13:41 Bedside Glucose 103 mg/dl Problem Qualifiers (1) Chest pain: Chest pain type: other chest pain Qualified Codes: R07.89 - Other chest pain
[2017-06-03] MEDS: CARVEDILOL 25 MG TAB PO SCH (20:40)
[2017-06-03] MEDS: CEFAZOLIN IV 2,000 MG in SYRINGE 0 ML IV SCH (20:40)
[2017-06-03] MEDS: TRAMADOL HCL 50 MG TAB PO PRN (23:44)
[2017-06-04 03:30] VITALS: BP 154/76; PULSE 73; TEMP 37.2; O2SAT 96
[2017-06-04] MEDS: CEFAZOLIN IV 2,000 MG in SYRINGE 0 ML IV SCH ×2 (04:53→11:52)
[2017-06-04 06:16] LABS: HEMATOCRIT 38.9 % (37-47); HEMOGLOBIN 12.5 g/dL (12.0-16.0); MEAN CORPUSCULAR HEMOGLOBIN 30.9 pg (25-34); MEAN CORPUSCULAR HGB CONC 32.1 g/dl (32-36); PLATELET COUNT 165 K/uL (130-400); RED CELL DISTRIBUTION WIDTH CV 14.3 % (11.5-14.5); RED CELL DISTRIBUTION WIDTH SD 50.1 fL (36.4-46.3)
[2017-06-04 06:38] LABS: PTT PATIENT 23.3 SECONDS (21.0-31.0)
--- NOTE | 2017-06-04 06:41 | DIAGNOSTIC IMAGING REPORT ---
CHEST 2 VIEWS ROUTINE CLINICAL HISTORY: 72 years-old Female presenting with EXACT TIME ORDERED Evaluate for pneumothorax and lead placement. TECHNIQUE: PA and lateral views of the chest were obtained. COMPARISON: 06/03/2017. FINDINGS: Left subclavian pacer with leads to the right atrium and right ventricular apex. Atherosclerosis of aortic arch. Cardiac silhouette enlarged. Bandlike opacities at the lung bases slightly increased on the right. Trace bilateral pleural effusions new from prior. Degenerative changes of the thoracic spine. Upper abdomen normal. IMPRESSION: 1. Interval placement of a left subclavian 2-lead pacer. No pneumothorax. 2. Bibasilar atelectasis slightly increased from prior. 3. New trace pleural effusions. Electronically signed by: Beau Vang M.D. 06/04/2017 6:40 AM Dictated Date/Time: 06/04/2017 6:35 AM
[2017-06-04 06:48] LABS: CALCIUM 9.7 mg/dl (8.5-10.1); CREATININE 1.2 mg/dl (0.60-1.20); POTASSIUM 4.2 mmol/L (3.5-5.1)
[2017-06-04] MEDS: INSULIN ASPART 100 UNITS/ML 3 ML PEN SC SCH ×2 (07:00→11:00)
[2017-06-04 07:50] VITALS: BP 141/71; PULSE 73; TEMP 37.5; O2SAT 92
[2017-06-04] MEDS: PANTOprazole INJ 40 MG in SYRINGE 0 ML IV SCH (08:14)
[2017-06-04] MEDS: TRAMADOL HCL 50 MG TAB PO PRN (08:15)
[2017-06-04] MEDS: CARVEDILOL 25 MG TAB PO SCH (08:16)
--- NOTE | 2017-06-04 08:27 | Cardiology Follow-Up ---
Subjective Date of Service: Jun 04, 2017. Pt evaluation today including: conversation w/ patient, physical exam, lab review, review of studies, review of inpatient medication list History of Present Illness This is a 72-year-old woman who has a history of nonischemic cardiomyopathy diagnosed in 2007 with a catheterization showing normal coronary arteries in July 2016. Her ejection fraction improved with medical therapy, at catheterization July 2016 it was felt to be 50-55%. In addition she has a left lower extremity DVT and hematology has recommended lifelong anticoagulation. She is therefore been maintained on eliquis and losartan. She has been maintained on carvedilol 25 mg twice a day as well as Eliquis. Today she began to feel very weak and short of breath while walking, had to sit down and was brought to the emergency room. In the emergency room she was found to be in complete heart block with a heart rate in the 20s. The heart rate did not respond well to dopamine, she was also hypotensive with a blood pressure initially in the 60s which did improve somewhat with dopamine. She was conscious at that time although did not feel well, however she had episode of asystole in the emergency room and external pacing was applied. She is very uncomfortable with external pacing but regained consciousness quickly. The temporary external pacing was stopped and she again began to become unresponsive. It was therefore restarted, she is intubated and sedated. Prior to intubation and while she was awake she agreed to have temporary pacing. She was therefore taken to the operations label clerk for temporary pacing. With a temporary pacemaker in place she recovered quickly and was able to be extubated. She did not have any prolonged period of asystole. She regained evidence of intermittent AV conduction as early as 7:00 PM on 06/01, although had frequent pacing after that but that may have been due to the rate of the pacemaker not continued heart block. This makes it unlikely it was related to beta blockade, her carvedilol was taken that morning. The pacemaker remained in place, on the morning of 06/02/2017 the rate was turned down to 50 and she has had no further pacing for 24 hours. An electrocardiogram during sinus rhythm shows left posterior fascicular block and right bundle branch block (bifascicular block). 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 Today she feels well and has only minor discomfort at the pacer site, and she feels occasional "skipped beats". Social History Smoking Status: Unknown if Ever Smoked History of Alcohol Use: No Review of Systems Respiratory: No cough, No wheezing, No shortness of breath Cardiac: + see HPI, + problem reported (extreme weakness and fatigue), No chest pain, No orthopnea, No PND, No edema, No palpitations Medications Cardiovascular: Item Value Date Time Apixaban 2.5 mg 06/04/17 0900 (Eliquis Tab) BID/PO Carvedilol 25 mg 06/03/17 2100 (Coreg Tab) BID/PO 06/03/172039 Objective Vital Signs Past 12 Hours Date Time Temp Pulse Resp B/P (MAP) Pulse Ox O2 Delivery O2 Flow Rate FiO2 06/04/17 07:50 37.5 73 18 141/71 (94) 92 Room Air 06/04/17 04:00 Room Air 06/04/17 03:30 37.2 73 18 154/76 (102) 96 Nasal Cannula 2.0 06/04/17 00:00 Room Air 06/03/17 23:45 37.4 84 20 152/78 (102) 98 Nasal Cannula 2.0 06/03/17 20:47 37.0 80 20 176/87 (116) 98 Nasal Cannula 2.0 Last Recorded Weight-Kilograms: 128.800 Physical Exam Constitutional: General Apperance: obese Level of Distress: NAD Lungs: Respiratory effort: no dyspnea, good air movement Auscultation: breath sounds normal, no wheezing Cardiovascular: Heart Auscultation: RRR, no murmurs, no rubs, no gallops Peripheral Pulses: Bruits: none appreciated Extremities: no edema Implant site is clean and dry, no bleeding. Data Laboratory Results: Last 24 Hours Test 06/03/17 09:48 06/03/17 13:41 06/03/17 16:06 06/03/17 20:51 Activated Partial Thromboplast Time 39.0 SECONDS Partial Thromboplastin Ratio 1.5 Bedside Glucose 103 mg/dl 109 mg/dl 96 mg/dl Test 06/04/17 05:37 White Blood Count 8.90 K/uL Red Blood Count 4.05 M/uL Hemoglobin 12.5 g/dL Hematocrit 38.9 % Mean Corpuscular Volume 96.0 fL Mean Corpuscular Hemoglobin 30.9 pg Mean Corpuscular Hemoglobin Concent 32.1 g/dl RDW Standard Deviation 50.1 fL RDW Coefficient of Variation 14.3 % Platelet Count 165 K/uL Mean Platelet Volume 11.0 fL Activated Partial Thromboplast Time 23.3 SECONDS Partial Thromboplastin Ratio 0.9 Sodium Level 137 mmol/L Potassium Level 4.2 mmol/L Chloride Level 102 mmol/L Carbon Dioxide Level 31 mmol/L Anion Gap 4.0 mmol/L Blood Urea Nitrogen 16 mg/dl Creatinine 1.20 mg/dl Est Creatinine Clear Calc Drug Dose 60.1 ml/min Estimated GFR () 52.7 Estimated GFR (Non- 45.4 BUN/Creatinine Ratio 13.0 Random Glucose 97 mg/dl Calcium Level 9.7 mg/dl Magnesium Level 1.8 mg/dl Imaging: Chest x-ray shows stable lead position, there is less slack in the leads both atrium and the ventricle than expected, a lot of extra slack was left at implant. It appears to be acceptable however and leads are not taut. EKG: A postoperative electrocardiogram shows sinus rhythm with intact AV conduction, right bundle branch block and rightward axis. Appropriate pacemaker inhibition. Telemetry reviewed: SR with intact AV conduction since pacer implant Pacemaker evaluation: Excellent pacing and sensing characteristics. Assessment and Plan #1. 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 #2. Cardiomyopathy: As of July of this year her cardiomyopathy has resolved with normalization of her ejection fraction. She had normal coronary arteries at catheterization. We should maintain beta blockade to minimize the risk of recurrence. Hopefully she will not pace enough to create a recurrence of her cardiomyopathy. Her carvedilol was restarted. #3. Postop day #1. Dual-chamber pacemaker: The device is working very well, leads are in stable position and there is no pneumothorax. The site looks good although we are starting Eliquis today, hopefully she will not have bleeding. I'm going to arrange follow-up for her in the office for Wednesday, from the surgical standpoint she can go home today after her last dose of antibiotic which is scheduled for noon. Thank you for allowing me to participate in her care.
[2017-06-04] MEDS ORDERED: APIXABAN 2.5 MG TAB PO SCH (09:00)
--- NOTE | 2017-06-04 09:06 | Discharge Instructions ---
Discharge Instructions Date of Service Jun 04, 2017. Admission Reason for Admission: Complete Heart Block Discharge Discharge Diagnosis / Problem: post dual-chamber pacemaker implantation Discharge Goals Goal(s): Improve disease control Activity Recommendations Activity Limitations: resume your previous activity . Instructions / Follow-Up Instructions / Follow-Up ACTIVITY RECOMMENDATIONS: * Do not raise affected arm over head for 2 weeks. SPECIAL CARE INSTRUCTIONS: * If bleeding occurs, apply direct pressure to area for 5 minutes. * Call your doctor if you have severe pain, fever, drainage or bleeding at site. * Keep dressing on and dry for 48 hours then remove. * Keep any scheduled doctor's appointment. * Implant Card - hand held device with website information given. SKIN IRRITATION: * You may experience some redness and/or swelling in the area where radiation was administered. If any skin irritation occurs, please contact your family physician. FOLLOW UP VISIT: Dr. Lord 06/07/2017 at 2:00 PM. Current Hospital Diet Patient's current hospital diet: AHA Diet (Heart Healthy), Diabetes Type 2 Diet Discharge Diet Recommended Diet: N/A Pending Studies Studies pending at discharge: no Laboratory Results Hemoglobin A1c Test 06/02/17 05:06 Range/Units Estimated Average Glucose 117 mg/dl Hemoglobin A1c 5.7 H 4.5-5.6 % Medical Emergencies . Who to Call and When: Medical Emergencies: If at any time you feel your situation is an emergency, please call 911 immediately. . Non-Emergent Contact Non-Emergency issues call your: Primary Care Provider . . "Provider Documentation" section prepared by Miguel Lord. . VTE Core Measure Inpt VTE Proph given/why not?: Other Anticoagulation, SCD's
--- NOTE | 2017-06-04 11:41 | Progress Note ---
Internal Med Progress Note Date of Service: Jun 04, 2017. Provider Documentation: SUBJECTIVE: Seen and examined at bedside States having mild headache Had pacemaker implantation yesterday Denies chest pain, SOB, dizziness No other complaints Denies any Home health needs OBJECTIVE: Vital Signs-as noted below Physical Exam: General Appearance:Obese, no apparent distress Head: normocephalic, Atraumatic Eyes: normal inspection, EOMI, PERRL Neck: supple, Trachea midline Respiratory/Chest: Normal breath sounds, CTA Chest: Pacemaker insertion on Let side of chest in bandage Cardiovascular: S1, S2, No murmur Abdomen/GI:Soft, Non tender, Bowel sounds present Extremities/Musculoskelatal:normal inspection, Chronic LLE edema Neurologic/Psych:AAOX3, grossly no focal neurological deficits Skin: normal color, warm Lab data as noted below. 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 continue Carvedilol, losartan, nitrates Cardiology following HYPERTENSION Stable Continue Carvedilol, losartan Monitor KARINA on CKD III Resolved resume Losartan DC IV fluids Monitor renal function DM II: Hold metformin Hgb A1C: 5.7 Monitor Blood sugar levels ISS H/O LLE DVT: Resume Apixaban MORBID OBESITY: BMI:45.9 GI Px: PPI DVT Px: On apixaban DISPOSITION Plan to discharge home today Follow up with your Primary Care Physician in 1 week as advised Follow up with your [facility] on 06/07/2017 at 2:00 PM Seek immediate medical attention if your symptoms reoccur or worsen Vital Signs: Date Time Temp Pulse Resp B/P (MAP) Pulse Ox O2 Delivery O2 Flow Rate FiO2 06/04/17 07:50 37.5 73 18 141/71 (94) 92 Room Air 06/04/17 04:00 Room Air 06/04/17 03:30 37.2 73 18 154/76 (102) 96 Nasal Cannula 2.0 06/04/17 00:00 Room Air 06/03/17 23:45 37.4 84 20 152/78 (102) 98 Nasal Cannula 2.0 06/03/17 20:47 37.0 80 20 176/87 (116) 98 Nasal Cannula 2.0 06/03/17 20:00 Room Air 06/03/17 16:10 76 22 137/58 (84) 96 Room Air 06/03/17 16:00 Room Air 06/03/17 13:30 64 18 137/66 (89) 90 Room Air 06/03/17 13:15 Room Air 06/03/17 12:50 74 18 166/88 (114) 95 Room Air 06/03/17 12:40 74 18 168/80 (109) 95 Room Air Lab Results: Results Past 24 Hours Test 06/03/17 13:41 06/03/17 16:06 06/03/17 20:51 06/04/17 05:37 Range/Units Bedside Glucose 103 109 96 70-90 mg/dl White Blood Count 8.90 4.8-10.8 K/uL Red Blood Count 4.05 4.2-5.4 M/uL Hemoglobin 12.5 12.0-16.0 g/dL Hematocrit 38.9 37-47 % Mean Corpuscular Volume 96.0 80-100 fL Mean Corpuscular Hemoglobin 30.9 25-34 pg Mean Corpuscular Hemoglobin Concent 32.1 32-36 g/dl RDW Standard Deviation 50.1 36.4-46.3 fL RDW Coefficient of Variation 14.3 11.5-14.5 % Platelet Count 165 130-400 K/uL Mean Platelet Volume 11.0 7.4-10.4 fL Activated Partial Thromboplast Time 23.3 21.0-31.0 SECONDS Partial Thromboplastin Ratio 0.9 Sodium Level 137 136-145 mmol/L Potassium Level 4.2 3.5-5.1 mmol/L Chloride Level 102 98-107 mmol/L Carbon Dioxide Level 31 21-32 mmol/L Anion Gap 4.0 3-11 mmol/L Blood Urea Nitrogen 16 7-18 mg/dl Creatinine 1.20 0.60-1.20 mg/dl Est Creatinine Clear Calc Drug Dose 60.1 ml/min Estimated GFR () 52.7 Estimated GFR (Non- 45.4 BUN/Creatinine Ratio 13.0 10-20 Random Glucose 97 70-99 mg/dl Calcium Level 9.7 8.5-10.1 mg/dl Magnesium Level 1.8 1.8-2.4 mg/dl
[2017-06-04 11:46] VITALS: BP 124/57; PULSE 66; TEMP 37.4; O2SAT 92
--- NOTE | 2017-06-04 11:46 | Discharge Summary ---
Discharge Summary Date of Service Jun 04, 2017. Discharge Summary Admission Date: Jun 01, 2017 at 17:33 Discharge Date: Jun 04, 2017 Discharge Disposition: Home Principal Diagnosis: Complete Heart Block S/P dual chamber pacemaker Implantation Procedures: CXR: 1. Interval placement of a left subclavian 2-lead pacer. No pneumothorax. 2. Bibasilar atelectasis slightly increased from prior. 3. New trace pleural effusions. Consultations: Cardiology, Critical care Pending Studies/Follow-Up: Follow up with your Primary Care Physician in 1 week as advised Follow up with your Siphon Operator on 06/07/2017 at 2:00 PM Seek immediate medical attention if your symptoms reoccur or worsen Medication Reconciliation Continued Medications: Amoxicillin (Amoxil) 500 Mg Cap 500 MG PO DIRECTED PRIOR TO DENTAL PROCEDURES Apixaban (Eliquis) 2.5 Mg Tab 2.5 MG PO BID Artificial Tear Solution (Artificial Tears) 1 Brandi Brandi 1 DROPS OP QID PRN for PRN, #30 ML 5 Refills Carvedilol (Coreg) 25 Mg Tab 25 MG PO BID, TAB Cholecalciferol (Vitamin D3) 2,000 Unit Tab 1000 INTER.UNIT PO DAILY Docusate Sodium (Stool Softener) 100 Mg Cap 200 MG PO DAILY PRN for Constipation Isosorbide Mononitrate Ext Rel (Imdur Ext Rel) 30 Mg Tabcr 30 MG PO DAILY Losartan Potassium (Cozaar) 50 Mg Tab 50 MG PO DAILY, TAB Metformin Hcl (Glucophage) 500 Mg Tab 500 MG PO BID, TAB Oxycodone/Acetaminophen 5MG/325MG (Oxycodone/Acetaminophen 5MG/325MG) 1 Tab Tab 0.5-1 TABLET PO TID PRN for Pain, #30 TAB Prednisolone Acetate (Prednisolone Acetate) 75 Drops/5 Ml Susp 1 DROP OPB DAILY Ranitidine (Zantac) 300 Mg Tab 150 MG PO BID, 0 Refills Sertraline Hcl (Zoloft) 100 Mg Tab 100 MG PO QAM, TAB Simvastatin (Zocor) 10 Mg Tab 10 MG PO HS, TAB Tramadol (Ultram) 50 Mg Tab 100 MG PO QID PRN for Pain, 0 Refills Trazodone Hcl (Trazodone) 50 Mg Tab 25 MG PO HS PRN for Insomnia, TAB Turmeric (Curcuma Longa) (Turmeric) 500 Mg Tab 1 CAP PO DAILY Admission Information HPI (per Admitting provider): 72 year-old female followed by Dr. Hernandez. History of nonischemic cardiomyopathy, hypertension, DM, and other problems noted below. Per history from ED provider: Developed lightheadedness, generalized weakness, diaphoresis, palpitations earlier today. Pulse at home was 24 per patient's assessment; she was unable to obtain a BP. Brought to ED for evaluation. Pulse rate upon arrival was in the 20's and BP was 62/40. EKG demonstrated 3rd degree heart block. Started on dopamine without significant improvement. External pacemaker applied, but extremely uncomfortable and had to be discontinued. Cardiology consulted for emergency pacemaker placement. Patient was intubated in ED before being taken to laboratory tester for temporary pacemaker insertion. Temporary pacemaker inserted via right femoral approach with good capture. Admitted to ICU after procedure. Extubated soon after arrival to ICU by rod and tube straightener. . Physical Exam (per Admitting): General Appearance: + mild distress Head: normocephalic, atraumatic Eyes: PERRL, EOMI, sclerae normal, + pertinent finding (conjunctivae clear) ENT: normal ENT inspection, hearing grossly normal Neck: supple, no adenopathy, thyroid normal, no JVD Respiratory/Chest: lungs clear, no respiratory distress, no accessory muscle use Cardiovascular: regular rate, rhythm, no gallop, no JVD, no murmur, + pertinent finding (trace pretibial edema) Abdomen/GI: normal bowel sounds, non tender, soft, no organomegaly Extremities/Musculoskelatal: + pertinent finding (RLE immobilized) Neurologic/Psych: + pertinent finding (sedated; followed simple commands; PERRL, EOMI; moves all 4 extremities) Skin: normal color, warm/dry, no rash Lymphatic: no adenopathy (cervical) Hospital Course 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 continue Carvedilol, losartan, nitrates Cardiology following HYPERTENSION Stable Continue Carvedilol, losartan Monitor KARINA on CKD III Resolved resume Losartan DC IV fluids Monitor renal function DM II: Hold metformin Hgb A1C: 5.7 Monitor Blood sugar levels ISS H/O LLE DVT: Resume Apixaban MORBID OBESITY: BMI:45.9 GI Px: PPI DVT Px: On apixaban DISPOSITION Plan to discharge home today Follow up with your Primary Care Physician in 1 week as advised Follow up with your Siphon Operator on 06/07/2017 at 2:00 PM Seek immediate medical attention if your symptoms reoccur or worsen Total time spent on discharge = 34 minutes This includes examination of the patient, discharge planning, medication reconciliation, and communication with other providers. Discharge Instructions Discharge Instructions Date of Service Jun 04, 2017. Admission Reason for Admission: Complete Heart Block Discharge Discharge Diagnosis / Problem: Complete Heart Block S/P dual chamber pacemaker Implantation Discharge Goals Goal(s): Decrease discomfort, Improve function Activity Recommendations Activity Limitations: resume your previous activity Exercise/Sports Limitations: gradually increase as tolerated . Instructions / Follow-Up Instructions / Follow-Up Follow up with your Primary Care Physician in 1 week as advised Follow up with your Siphon Operator on 06/07/2017 at 2:00 PM Seek immediate medical attention if your symptoms reoccur or worsen Current Hospital Diet Patient's current hospital diet: AHA Diet (Heart Healthy), Diabetes Type 2 Diet Discharge Diet Recommended Diet: AHA Diet (Heart Healthy), Diabetes Type 2 Diet Pending Studies Studies pending at discharge: no Laboratory Results Hemoglobin A1c Test 06/02/17 05:06 Range/Units Estimated Average Glucose 117 mg/dl Hemoglobin A1c 5.7 H 4.5-5.6 % Medical Emergencies . Who to Call and When: Medical Emergencies: If at any time you feel your situation is an emergency, please call 911 immediately. . Non-Emergent Contact Non-Emergency issues call your: Primary Care Provider, Siphon Operator Call Non-Emergent contact if: you have a fever, your pain is not controlled, your pain is worsening, your pain is unusual for you, your pain is concerning you, wound has increased drainage, wound has increased redness, wound has increased pain, you have any medication questions Seek immediate medical attention if your symptoms reoccur or worsen . . "Provider Documentation" section prepared by Jacob Junior. . VTE Core Measure Inpt VTE Proph given/why not?: Other Anticoagulation, SCD's <Electronically signed by Jacob Junior MD> Signed: 06/04/17 5610 Signed: The status of this report is Signed * If report status is Draft, the document has not been finalized by the responsible provider.
[2017-06-04 13:07] VITALS: BP 124/57; PULSE 66; TEMP 37.4; O2SAT 92
[2017-06-04] MEDS ORDERED: SUCCINYLCHOLINE CHLORIDE 20 MG/ML 10 ML VIAL IV ONE (15:16)
[2017-06-04] MEDS ORDERED: MIDAZOLAM HCL 5 MG/ML 2ML VIAL IV ONE (15:16)
[2017-06-04] MEDS ORDERED: CALCIUM CHLORIDE 10% 10 ML SYR IV ONE (15:16)
[2017-06-04] MEDS ORDERED: KETAMINE HCL INJ 50 MG/ML 10 ML VIAL IV ONE (15:16)
== END 2017-06-04 15:17 | disposition home or self-care (01) | DRG 242 ==
LOC: EDBD 15:47 → C.EDA 15:49 → ENRESERV 16:52 → EDBEDREQSVC 17:23 → C.MSICU 17:33 → ENRESERV 06-03 16:53 → C.2E 06-03 17:30
PROVIDERS: ADMIT Internal Medicine; ATTEND Internal Medicine
PROC: 5A1213Z Performance of Cardiac Pacing, Intermittent (ICD-10-PCS; 2017-06-01)
PROC: 0BH17EZ Insertion of Endotracheal Airway into Trachea, Via Natural or Artificial Opening (ICD-10-PCS; principal; 2017-06-01 16:28)
PROC: 5A1935Z Respiratory Ventilation, Less than 24 Consecutive Hours (ICD-10-PCS; principal; 2017-06-01 16:28)
PROC: 02H63JZ Insertion of Pacemaker Lead into Right Atrium, Percutaneous Approach (ICD-10-PCS; 2017-06-03)
PROC: 0JH606Z Insertion of Pacemaker, Dual Chamber into Chest Subcutaneous Tissue and Fascia, Open Approach (ICD-10-PCS; 2017-06-03)
PROC: 02HK3JZ Insertion of Pacemaker Lead into Right Ventricle, Percutaneous Approach (ICD-10-PCS; 2017-06-03)
DX: I44.2 Atrioventricular block, complete (principal); J96.01 Acute respiratory failure with hypoxia; J96.02 Acute respiratory failure with hypercapnia; I42.8 Other cardiomyopathies; N17.9 Acute kidney failure, unspecified; I12.9 Hypertensive chronic kidney disease with stage 1 through stage 4 chronic kidney disease, or unspecified chronic kidney disease; E11.9 Type 2 diabetes mellitus without complications; E78.5 Hyperlipidemia, unspecified; E66.01 Morbid (severe) obesity due to excess calories; K21.9 Gastro-esophageal reflux disease without esophagitis; G35 Multiple sclerosis; N18.9 Chronic kidney disease, unspecified; Z79.01 Long term (current) use of anticoagulants; Z79.52 Long term (current) use of systemic steroids; Z79.84 Long term (current) use of oral hypoglycemic drugs; Z79.899 Other long term (current) drug therapy

== ENCOUNTER → 2017-09-27 | Outpatient (CLI) | payer OTHER ==
[~2017-09-27] MED LIST changes: +AMOX500C3 PO; +APIX1TAB PO; +ARTISOL12 OP; -ASPI81TA28 PO; -FRS/40 PO; +ISOS30TA35 PO; +PRDFOPS OPB; -PRM625 PO
--- NOTE | 2017-09-27 12:15 | DIAGNOSTIC IMAGING REPORT ---
MRI OF THE BRAIN WITHOUT CONTRAST CLINICAL HISTORY: Multiple sclerosis. Worsening incontinence and gait abnormalities. COMPARISON STUDY: MRI of the brain October 03, 2010. TECHNIQUE: Utilizing a 1.5 Arti magnet and dedicated coil, multiplanar, multiecho imaging of the brain was performed without IV contrast. Thin cut FLAIR imaging was performed. FINDINGS: There are no foci of restricted diffusion. No acute intracranial hemorrhage, midline shift or mass effect is present. Brain volume is normal for age. Ventricular system is unremarkable. The basilar cisterns are patent. There are no extra-axial collections. Flow-voids for the major intracranial vessels are present. No intracranial masses are identified on this unenhanced exam. Multiple white matter T2 hyperintense foci are noted. The majority of these are unchanged exam of October 03, 2010. A few small foci have developed. Basilar cisterns are patent. There are nodular axial collections. There is minimal mucosal thickening of the right frontal and ethmoid sinuses. Mastoid air cells are clear. IMPRESSION: 1. Numerous nonspecific white matter T2 hyperintense foci, the majority of which are unchanged since MRI of October 03, 2010. Minimal increase in white matter T2 hyperintense foci since exam of October 03, 2010. 2. No acute intracranial findings. Electronically signed by: Pako Ryan M.D. 09/27/2017 12:14 PM Dictated Date/Time: 09/27/2017 12:05 PM
--- NOTE | 2017-09-27 12:22 | DIAGNOSTIC IMAGING REPORT ---
CERVICAL WITHOUT CONTRAST CLINICAL HISTORY: 72 years-old Female presenting with MS, incontinence, loss of balance, worsening symptoms. TECHNIQUE: Multisequence, multiplanar MR imaging of the cervical spine was performed without the use of intravenous contrast. IV contrast: None. COMPARISON: None. FINDINGS: Localizer images: Unremarkable. Straightening of normal cervical lordosis. Vertebral bodies maintain normal height, alignment, and bone marrow signal intensity. Mild diffuse disc desiccation. Small disc osteophyte complexes noted at several levels including C3-4, C5-6, and C6-7. Degenerative changes further detailed below: C2-3: No significant neural foraminal or spinal stenosis. C3-4: Small disc osteophyte complex result in mild effacement of the anterior thecal sac with slight contouring of the left paracentral anterior spinal cord. No shift neural foraminal narrowing. C4-5: Uncovertebral hypertrophy on the right results in mild right neural foraminal narrowing. C5-6: Disc C5 complex/uncovertebral hypertrophy and ligamentum flavum hypertrophy results in ventral and dorsal effacement of the thecal sac and mild contouring of the spinal cord. Some CSF signal is preserved along the lateral aspects of the thecal sac. Moderate bilateral neural foraminal narrowing. C6-7: Disc osteophyte complex/uncovertebral hypertrophy and ligamentum flavum thickening result in effacement of the ventral and dorsal effacement of the thecal sac without the information of the spinal cord. Moderate bilateral neural foraminal narrowing also results. C7-T1: No significant neural foraminal or spinal canal narrowing. The spinal cord maintains normal signal intensity allowing for motion artifact degradation of image quality. Craniocervical junction within normal limits. Paraspinal soft tissues within normal limits. No muscular edema. No epidural collection. Abnormal soft tissue along the right paratracheal region is indeterminate but possibly thyroid in etiology (series 7 image 19). IMPRESSION: 1. No abnormal spinal cord signal intensity allowing for mild degradation of image quality due to motion artifact. Postcontrast imaging was not performed. 2. Multilevel degenerative changes with multilevel spinal stenosis most severe at C3-4 and C5-6. Multilevel neural foraminal narrowing as above most severe at C5-6 and C6-7. 3. Abnormal soft tissue in the right paratracheal region may be thyroid in etiology though is indeterminate. Further evaluation with neck ultrasound recommended. Electronically signed by: Beau Vang M.D. 09/27/2017 12:20 PM Dictated Date/Time: 09/27/2017 12:11 PM
--- NOTE | 2017-09-27 12:55 | DIAGNOSTIC IMAGING REPORT ---
MRI OF THE THORACIC SPINE WITHOUT CONTRAST CLINICAL HISTORY: Multiple sclerosis. Worsening incontinence and gait abnormalities. COMPARISON: None TECHNIQUE: Utilizing a 1.5 Arti magnet and dedicated coil, multiplanar, multiecho imaging of the thoracic spine was performed without IV contrast. FINDINGS: Alignment of the thoracic spine is anatomic. Vertebral body heights are maintained. There is no suspicious marrow replacement. Multiple areas of increased T1 and T2 signal could reflect hemangiomas or focal fat. Thoracic cord signal and caliber are normal. There is no intracanalicular mass or fluid collection. Paravertebral soft tissues are unremarkable with exception of a 3.6 cm T2 intense right paratracheal abnormality that likely reflects a right lobe thyroid nodule. Mild multilevel degenerative changes are present, including multiple small disc protrusions including a central disc protrusion at T10-T11 that results in mild narrowing of the canal. IMPRESSION: 1. Normal thoracic cord signal and caliber. 2. Mild multilevel degenerative disc disease within the thoracic spine. Electronically signed by: Pako Ryan M.D. 09/27/2017 12:54 PM Dictated Date/Time: 09/27/2017 12:49 PM
== END | disposition home or self-care (01) ==
LOC: C.MRI 10:19
PROVIDERS: ATTEND Psychiatry & Neurology Neurology
DX: G35 Multiple sclerosis (principal); M51.34 Other intervertebral disc degeneration, thoracic region

== ENCOUNTER → 2017-10-04 | Outpatient (CLI) | payer OTHER ==
--- NOTE | 2017-10-04 11:24 | DIAGNOSTIC IMAGING REPORT ---
THYROID ULTRASOUND HISTORY: SWELLING, MASS/LUMP OF NECK COMPARISON: Cervical spine MRI 09/27/2017. FINDINGS: Right lobe: 5.5 x 3.5 x 3.4 cm. Multiple solid and cystic nodules seen throughout the thyroid gland. Dominant solid nodule measures 3.4 x 3.3 x 3.1 cm. This contains a few punctate calcifications. Left lobe: 4.5 x 1.5 x 1.6 cm. Multiple nodules which are both solid and cystic. Dominant complex nodule within the lower pole measures 9 x 8 x 7 mm. Isthmus: 5 mm in thickness. Cystic nodule measuring 6 mm. IMPRESSION: Multinodular thyroid gland with the dominant nodule in the right thyroid lobe measuring 3.4 cm. Ultrasound-guided fine-needle aspiration of this lesion is recommended. Electronically signed by: Dinesh Banegas M.D. 10/04/2017 11:23 AM Dictated Date/Time: 10/04/2017 11:20 AM
== END | disposition home or self-care (01) ==
LOC: C.ULTR 10:25
PROVIDERS: ATTEND Internal Medicine
DX: R22.1 Localized swelling, mass and lump, neck (principal); E04.2 Nontoxic multinodular goiter

== ENCOUNTER → 2017-10-08 | Outpatient (CLI) | payer OTHER ==
--- NOTE | 2017-10-08 13:30 | DIAGNOSTIC IMAGING REPORT ---
ULTRASOUND-GUIDED FINE-NEEDLE ASPIRATION BIOPSY OF A RIGHT LOBE THYROID NODULE CLINICAL HISTORY: RT THYROID NODULE COMPARISON STUDY: 10/04/2017 FINDINGS: A timeout was performed. The risks the procedure were explained the patient informed consent was obtained. Under ultrasound guidance, 3 samples of the dominant right lobe thyroid nodule were obtained utilizing a 25-gauge needle. Initial pathologic review indicates satisfactory material for diagnosis. There were no immediate locations. IMPRESSION: Successful ultrasound-guided fine-needle aspiration biopsy of a dominant right lobe thyroid nodule. Electronically signed by: David Martinez M.D. 10/08/2017 1:29 PM Dictated Date/Time: 10/08/2017 1:28 PM
== END | disposition home or self-care (01) ==
LOC: C.ULTR 12:19
PROVIDERS: ATTEND Internal Medicine
DX: E04.1 Nontoxic single thyroid nodule (principal)

== ENCOUNTER 2021-12-23 09:50 | Inpatient (IN) ==
--- NOTE | 2021-12-19 11:41 | Anesthesiology Consultation ---
Date of Service December 19, 2021 Assessment & Plan (1) Encounter for pre-operative examination: Plan - check BSG am DOS. - pacemaker: medtronic. - cervical disc disease, advanced C5-C6. - cardiology 10/29/21 [place]: "...recovered nonischemic cardiomyopathy (prior EF 25- 30%, most recent EF 50%), complete heart block s/p dual chamber pacemaker implantation, hypertension, hx of DVT on lifelong anticoagulation, symptomatic PVCs, prediabetes, GERD, chronic renal insufficiency, multiple sclerosis, seronegative RA on chronic steroids who presents today for preoperative cardiovascular evaluation prior to right SI joint fusion with Dr. Steven on 11/12/21. She continues to endorse intermittent dyspnea, which has been evaluated extensively in the past from a cardiac standpoint...no evidence of pulmonary congestion on exam today and recent CXR showed no acute cardiopulmonary disease. Most recent echo in October 2020 showed preserved LV function with no significant valvular abnormalities. No significant pulmonary hypertension was noted on right heart catheterization in April 2020...normal coronaries in 2016. It has been felt that her dyspnea is likely secondary to deconditioning, weight, and joint issues...symptoms appear stable at this time...not having angina. BP is reasonably well controlled. Given this information, patient is at an acceptable risk to proceed with upcoming procedure without any additional cardiovascular testing or intervention..." - COVID screening: Per leather novelty parts cutter on 12/19/2021: Travel screen negative, no known COVID-19 positive contacts or current COVID-19 related symptoms in past 2 weeks. Pt vaccinated. Surgeon arranging preop COVID testing, scheduled 12/19/2021. Awaiting results. Chart Review Chart Review: Acceptable Risk for Surgery and Patient NOT seen in Pre Admission Testing History Surgery Operation Date: 12/23/21 11:55 Proposed Procedures p Right Sacroiliac Joint Fusion - Nasim Steven, Height/Weight Height: 5 ft 6 in Weight: 137.438 kg Allergies Allergy/AdvReac Type Severity Reaction Status Date / Time celecoxib Allergy Mild constant Verified 12/19/21 10:29 chest pain chlorhexidine Allergy Mild red rash Verified 12/19/21 10:29 and itching gabapentin Allergy Mild swelling Verified 12/19/21 10:30 pineapple Allergy Unknown RESPIRATORY Verified 12/19/21 10:29 DISTRESS [email or web address] [From [email or web address]] Allergy Facial Verified 12/19/21 10:29 swelling Medications Home Medications Medication Instructions Recorded Confirmed Last Taken apixaban 2.5 mg tablet 2.5 mg PO BID 03/16/19 12/19/21 05/19/20 19:00 cholecalciferol (vitamin D3) 50 2,000 units PO DAILY 03/16/19 12/19/21 Unknown mcg (2,000 unit) tablet sertraline 100 mg tablet 100 mg PO QAM 03/16/19 12/19/21 Unknown simvastatin 10 mg tablet 10 mg PO QPM 03/16/19 12/19/21 Unknown prednisone 5 mg tablet 5 mg PO QAM 11/07/19 12/19/21 Unknown turmeric 400 mg PO QAM 11/07/19 12/19/21 Unknown carvedilol 25 mg tablet 37.5 mg PO BID 05/07/20 12/19/21 Unknown losartan 100 mg tablet 100 mg PO HS 11/11/20 12/19/21 Unknown CBD OIL PO DAILY 12/12/21 12/12/21 Unknown acetaminophen 650 mg 650 mg PO Q12H 12/12/21 12/19/21 Unknown tablet,extended release (Tylenol 8 Hour) cimetidine 200 mg tablet 200 mg PO QAM 12/12/21 12/19/21 Unknown docusate sodium 100 mg capsule 100 mg PO QPM 12/12/21 12/19/21 Unknown furosemide 20 mg tablet (Lasix) 20 mg PO UD 12/12/21 12/19/21 Unknown tramadol 50 mg tablet 100 mg PO Q6H PRN Pain #200 tabs 12/18/21 12/19/21 Unknown oxybutynin chloride 10 mg 10 mg PO QAM 12/19/21 12/19/21 Unknown tablet,extended release 24 hr Past Medical History Medical History (Updated 12/19/21 @ 11:40 by Haylee Wheatley PA-C) Cardiomyopathy, nonischemic EF 50% Cervical disc disease advanced C5-C6 Complete heart block s/p PPM 2017 Diabetes mellitus, type 2 hx of dm and no longer taking medications. Diastolic dysfunction type 1 per 11/15/2020 echo Diverticular disease Dyslipidemia GERD (gastroesophageal reflux disease) History of deep venous thrombosis Recurrent, on lifetime anticoagulation, recommended by hematology Hypertension Inflammatory polyarthropathy taking prednisone Lumbar spinal stenosis Multiple sclerosis benign dx 1998 was on medication for a year and half and now longer takes medication and follows yearly with Dr Christina MARTINEZ Urge and stress incontinence Past Family History Family History Father Oral cancer Myocardial infarction Heart disease Hypertension Aunt Breast cancer Mother End stage renal disease Hypertension Denies family history of Ovarian cancer Prostate cancer Colorectal cancer Past Surgical History Surgical History Cardiac pacemaker in situ (2017) Medtronic dr bassett and was checked 10/2021 History of bowel resection secondary to diverticular perforation/abscess S/P appendectomy S/P tonsillectomy S/P total hysterectomy and bilateral salpingo-oophorectomy (1978) secondary to fibroids/endometriosis Status post cardiac catheterization "07/13/16 [facility] Dr. Serrano - normal coronaries" Status post corneal transplant b/l eyes, secondary to fuch dystrophy b/l eyes Status post left hip replacement (2010) Social History Smoking Status: Never smoker Do You Dip or Chew Tobacco: No Hx Alcohol Use: Yes Alcohol type: wine alcohol intake frequency: a few times a month Hx Substance Use: No substance use type: does not use Lab Results Anesthesia Preop Results Results Anesthesia Widget: WBC 5.77 K/uL (4.8-10.8) 10/23/21 Hgb 13.2 g/dL (12.0-16.0) 10/23/21 Hct 41.6 % (37-47) 10/23/21 Plt 229 K/uL (130-400) 10/23/21 Na 139 mmol/L (136-145) 10/23/21 K 4.9 mmol/L (3.5-5.1) 10/23/21 Cl 106 mmol/L (98-107) 10/23/21 CO2 27 mmol/L (21-32) 10/23/21 BUN 21 mg/dl (6-23) 10/23/21 Creat 1.11 mg/dl (0.6-1.2) 10/23/21 Glucose Level 105 mg/dl (70-99(Fasting)) H 10/23/21 PT 10.9 Seconds (9.0-12.0) 10/23/21 PTT 25.1 Seconds (21.0-31.0) 10/23/21 INR 1.0 (0.9-1.1) 10/23/21 Urine Color Yellow 10/23/21 Urine Appearance Cloudy (Clear) A 10/23/21 Urine pH 6.0 (4.5-7.5) 10/23/21 Urine Specific Mcdonough 1.018 (1.000-1.030) 10/23/21 Urine Protein Negative (Negative) 10/23/21 Urine Glucose (UA) Negative (Negative) 10/23/21 Urine Ketones Negative (Negative) 10/23/21 Urine Blood Negative (Negative) 10/23/21 Urine Nitrite Negative (Negative) 10/23/21 Urine Bilirubin Negative (Negative) 10/23/21 Urine Urobilinogen Negative (Negative) 10/23/21 Urine Leukocyte Esterase 3+ (Negative) H 10/23/21 Urine WBC (Auto) >30 /hpf (0-5) H 10/23/21 Urine RBC (Auto) 5-10 /hpf (0-4) H 10/23/21 Urine Hyaline Casts (Auto) 1-5 /lpf (0-5) 10/23/21 Urine Epithelial Cells (Auto) 10-20 /lpf (0-5) H 10/23/21 Urine Bacteria (Auto) 4+ (Negative) H 10/23/21 Testing Electrocardiogram Date: 10/23/21 AV dual paced rhythm, rate 68 bpm Chest X-Ray Date: 10/23/21 Frontal and lateral radiographs of the chest demonstrate the cardiomediastinal silhouette to be within normal limits. Permanent cardiac pacer is in place. The lungs are clear of alveolar opacities. There is no evidence for effusion bilaterally. There is no evidence for vascular congestion. There is no acute osseous pathology. IMPRESSION: 1. No acute cardiopulmonary disease. Echocardiogram Date: 11/15/20 EF 50% Mild cLVH No LV regional wall motion abnormalities No significant valvular abnormalities visualized, valves not well seen Cervical Spine Date: 11/03/21 Degenerative changes with advanced disc disease at C5-C6, slight rightward curvature which could be positional or early degenerative scoliosis with otherwise normal alignment Other Testing Pacer report 10/23/21 Medtronic HRs predominantly 60-100 bpm Presenting rhyhtm atrial pacing, ventricular pacing No new arrhythmic events since last reset 100% RV pacing Mode: DDDR
[~2021-12-23 09:50] MED LIST changes: +ACETAMINOPHEN 500 MG TAB PO SCH; -AMOX500C3 PO; -APIX1TAB PO; -ARTISOL12 OP; -CARV25TA2 PO; -CHOL20005 PO; -DOCU100C PO; +GABAPENTIN 300 MG CAP PO SCH; -GLC/500 PO; -ISOS30TA35 PO; -LOSA50TA54 PO; +LR 15ML/HR IV SCH; -OXYC-643 PO; -PRDFOPS OPB; -RANI300T2 PO; -SERT1TAB68 PO; -SIMV10TA5 PO; -TRAM-10 PO; -TRAZ50TA35 PO; -TURM500T PO
[2021-12-23] MEDS ORDERED: ONDANSETRON INJ 2 MG/ML 2 ML VIAL IV PRN (12:14)
[2021-12-23] MEDS ORDERED: ePHEDrine sulfate 50 MG/ML AMP IV PRN (12:14)
[2021-12-23] MEDS ORDERED: ATROPINE SULFATE 0.1 MG/ML 10ML SYR IV PRN (12:14)
--- NOTE | 2021-12-23 12:19 | History & Physical Bridge Note ---
Date of Service December 23, 2021 History & Physical Bridge Note I have examined the patient, reviewed the History & Physical and in the interval since the performance of the History & Physical I have noted the following changes of clinical significance: no changes noted
--- NOTE | 2021-12-23 12:20 | History & Physical Report ---
Date of Service December 23, 2021 Assessment & Plan (1) Sacroiliitis: Plan: Right sacroiliac joint fusion History of Present Illness Chief Complaint: Chronic persistent right sacroiliitis Primary Care Provider: Amy Sharpe DO This is a 36-year-old female well-known to me the presents with severe sacroiliitis. After failing course of nonoperative care she is here for surgical invention. Allergies Allergy/AdvReac Type Severity Reaction Status Date / Time celecoxib Allergy Mild constant Verified 12/23/21 10:04 chest pain chlorhexidine Allergy Mild red rash Verified 12/23/21 10:04 and itching gabapentin Allergy Mild swelling Verified 12/23/21 10:04 pineapple Allergy Unknown RESPIRATORY Verified 12/23/21 10:04 DISTRESS [email or web address] [From Myrbetriq] Allergy Facial Verified 12/23/21 10:04 swelling Home Medications Medication Instructions Recorded Confirmed Type apixaban 2.5 mg tablet 2.5 mg PO BID 03/16/19 12/23/21 History cholecalciferol (vitamin D3) 50 2,000 units PO DAILY 03/16/19 12/23/21 History mcg (2,000 unit) tablet sertraline 100 mg tablet 100 mg PO QAM 03/16/19 12/23/21 History simvastatin 10 mg tablet 10 mg PO QPM 03/16/19 12/23/21 History prednisone 5 mg tablet 5 mg PO QAM 11/07/19 12/23/21 History turmeric 400 mg PO QAM 11/07/19 12/23/21 History carvedilol 25 mg tablet 37.5 mg PO BID 05/07/20 12/23/21 History losartan 100 mg tablet 100 mg PO HS 11/11/20 12/23/21 History CBD OIL PO DAILY 12/12/21 12/12/21 History acetaminophen 650 mg 650 mg PO Q12H 12/12/21 12/23/21 History tablet,extended release (Tylenol 8 Hour) cimetidine 200 mg tablet 200 mg PO QAM 12/12/21 12/23/21 History docusate sodium 100 mg capsule 100 mg PO QPM 12/12/21 12/23/21 History furosemide 20 mg tablet (Lasix) 20 mg PO UD 12/12/21 12/23/21 History tramadol 50 mg tablet 100 mg PO Q6H PRN Pain #200 tabs 12/18/21 12/23/21 Rx oxybutynin chloride 10 mg 10 mg PO QAM 12/19/21 12/23/21 History tablet,extended release 24 hr Past Med/Surg History Medical History (Updated 12/23/21 @ 12:20 by Nasim Steven DO) Cardiomyopathy, nonischemic EF 50% Cervical disc disease advanced C5-C6 Complete heart block s/p PPM 2017 Diabetes mellitus, type 2 hx of dm and no longer taking medications. Diastolic dysfunction type 1 per 11/15/2020 echo Diverticular disease Dyslipidemia GERD (gastroesophageal reflux disease) History of deep venous thrombosis Recurrent, on lifetime anticoagulation, recommended by hematology Hypertension Inflammatory polyarthropathy taking prednisone Lumbar spinal stenosis Multiple sclerosis benign dx 1998 was on medication for a year and half and now longer takes medication and follows yearly with Dr Christina MARTINEZ Urge and stress incontinence Surgical History Cardiac pacemaker in situ (2017) [employer] dr bassett and was checked 10/2021 History of bowel resection secondary to diverticular perforation/abscess S/P appendectomy S/P tonsillectomy S/P total hysterectomy and bilateral salpingo-oophorectomy (1978) secondary to fibroids/endometriosis Status post cardiac catheterization "07/13/[address] [facility] [address]. Serrano - normal coronaries" Status post corneal transplant b/l eyes, secondary to fuch dystrophy b/l eyes Status post left hip replacement (2010) Family History Father Oral cancer Myocardial infarction Heart disease Hypertension Aunt Breast cancer Mother End stage renal disease Hypertension Denies family history of Ovarian cancer Prostate cancer Colorectal cancer Social History Smoking Status: Never smoker Second Hand Exposure: No; Do You Dip or Chew Tobacco: No; Tobacco Cessation Education Requested by Patient: No Hx Alcohol Use: Yes Alcohol type: wine Hx Substance Use: No Preferred Language: Bangladeshi Communication Ability: Effective Hearing Ability: Normal Regrader Required: No Beliefs That Will Affect Care: None marital status: / Current Living Situation: Alone How many Children do You have: 1 How many Children do You have Comment: 1 son Other Information That Helps Us Care for You: No Feels Safe at Home: Yes Safety Concerns: Feels Safe At This Time Childhood Exposure to Second-Hand Smoke: Yes caffeine: Yes during the past year weight has: remained stable Physical Activity Frequency: Does not Exercise Seatbelt Use: always Sunscreen Use: Yes Assistive Devices: Walker Physical Exam Physical Exam: Patient is alert and oriented Heart regular rhythm Lungs clear Results & Data Results & Data ([facility]) Vital Signs (Past 12 Hours) Vital Signs Temp Pulse Resp BP Pulse Ox O2 Del Method 12/23/21 10:18 36.8 C 76 20 156/71 H 96 Room Air 12/23/21 10:18 Room Air
[2021-12-23] MEDS ORDERED: LIDOCAINE 2% MPF LOCAL 5 ML VIAL INFIL ONE (12:36)
[2021-12-23] MEDS ORDERED: ROCURONIUM BROMIDE 10 MG/ML 5 ML VIAL IV ONE (12:36)
[2021-12-23] MEDS ORDERED: PROPOFOL IV EMULSION 10 MG/ML 20 ML VIAL IV ONE (12:36)
[2021-12-23] MEDS ORDERED: PHENYLEPHRINE HCL 10 MG/ML VIAL ONE (12:37)
[2021-12-23] MEDS ORDERED: BUPIVACAINE/EPINEPHRINE 0.25% 1:200,000 30 ML VIAL ONE (12:39)
[2021-12-23] MEDS ORDERED: ceFAZolin 330 MG/ML 1 GM VIAL ONE (12:39)
[2021-12-23] MEDS ORDERED: fentaNYL citrate 100 MCG/2 ML VIAL ONE (12:51)
[2021-12-23] MEDS ORDERED: FLOSEAL HEMOSTATIC MATRIX 10ML TOP ONE (13:48)
[2021-12-23] MEDS ORDERED: GLYCOPYRROLATE 0.2 MG/ML VIAL ONE (13:54)
[2021-12-23] MEDS ORDERED: ONDANSETRON INJ 2 MG/ML 2 ML VIAL ONE (13:54)
[2021-12-23] MEDS ORDERED: oxyCODONE HCL IR 5 MG TAB (IMMEDIATE RELEASE) PO PRN ×2 (13:56)
[2021-12-23] MEDS ORDERED: HYDROmorphone INJ 0.5 MG/0.5 ML SYR IV PRN ×2 (13:56)
[2021-12-23] MEDS ORDERED: traMADol HCL 50 MG TABLET PO PRN ×2 (13:56)
--- NOTE | 2021-12-23 13:56 | Operative Report ---
Post Operative Report Pre & Post Diagnosis Operation Date: 12/23/21 11:55 Pre-Op Diagnosis: Sacroiliac Joint Dysfunction Post-Op Diagnosis: Sacroiliac Joint Dysfunction I identified the patient and participated in the time-out.: Yes Procedure Operation Date: 12/23/21 11:55 Actual Procedures #1 open right SI joint fusion. #2 placement of 20 mm allograft filled with I factor into the right SI joint. #3 placement of 2 globus sacroiliac screws both BANERJEE-coated filled with locally harvested morselized autograft and I factor across the right SI joint. Surgeon Nasim Steven, DO Astronomy Teacher Sherron Lau Estimated Blood Loss 10 Findings See Below The patient is 5 foot 6 inches tall weighing over 137 kg with a BMI in excess of 48. The patient's body habitus did contribute to significant technical diffic ulty adding at least 50% increased operative time. Specimens None Indications This is a 76-year-old female well-known to me the presents with severe chronic sacroiliitis. After failing course of nonoperative care is here for surgical invention. Description of Procedure ConservativePatient was met with identified informed consent obtained. Patient was then taken to the operative suite underwent ablation placed in a prone position chest table chest padded bolsters. All bony prominences well-padded eyes inspected to ensure no external pressure placed upon them. This point the right upper buttock was prepped and draped in normal sterile fashion. Aspirated for the right SI joint created an incision over the posterior aspect. Dissection was formed down to and exposing the posterior right SI joint. A guidewire was then placed directly within the joint followed by a joint finder. Once I verified position a working cannula was placed over the joint finder into the right SI joint. I then drilled and curetted out the right SI joint to subc ortical bleeding bone. A 20 mm allograft filled with I factor was then tapped in position. After this was complete I created a second incision along the right upper buttock along the line of the posterior sacral slope. Approximately 3 cm in size. A guidewire was then inserted and placed across the right SI joint and the proximal one third. I verified position with inlet outlet and lateral views. Once I was satisfied with positioning cannulas were placed over the guidewires and was subsequently drilled across the joint. A 40 mm BANERJEE-coated slotted globus screw filled locally harvested morselized autograft and I factor was then placed. It demonstrated excellent purchase and alignment. A second screw was also placed in a similar fashion distally. The screw was 30 mm in length BANERJEE-coated slotted filled with locally harvested morselized autograft and I factor. It again demonstrated excellent alignment and purchase. The incisions were then copiously irrigated and closed with subcutaneous Vicryl and 4 Monocryl for final skin closure. Steri-Strip sterile dressings placed. Patient waken taken PACU stable condition. Please note Sherron Lau was present out the entire procedure involved the patient positioning complex portions of the surgery and final skin closure. I attest to the content of the Intraoperative Record and any orders documented therein. Any exceptions are noted below.
--- NOTE | 2021-12-23 14:06 | Fluoroscopy Report ---
FL sacrum CLINICAL HISTORY: RT SIJ FUSION COMPARISON STUDY: None FLUOROSCOPY TIME: 2 minutes and 6 seconds. FLUOROSCOPIC IMAGES: 3 FINDINGS: AP and lateral C-arm images were obtained status post fusion of the right SI joint. 2 cance llus screws are seen. IMPRESSION: Status post right SI joint fusion. ACT 112: Negative or not required by law. Electronically signed by: Reji Hernandez M.D. 12/23/2021 2:05 PM
[2021-12-23] MEDS: fentaNYL citrate 100 MCG/2 ML VIAL IV PRN ×4 (14:25→14:46)
--- NOTE | 2021-12-23 14:59 | Anesthesiology Progress Note ---
Date of Service December 23, 2021 Anesthesia Post Procedure Vital Signs Vital Signs: Temp Pulse Pulse Resp BP BP Pulse Ox 12/23/21 14:55 84 19 157/73 H 98 12/23/21 14:45 102 H 20 150/70 H 92 12/23/21 14:35 91 H 18 129/70 100 12/23/21 14:25 93 H 16 147/70 H 100 12/23/21 14:15 96.6 F L 98 H 18 129/74 100 12/23/21 10:18 98.2 F 76 20 156/71 H 96 12/23/21 10:18 O2 Del Method O2 Flow Rate 12/23/21 14:55 Nasal Cannula 2 12/23/21 14:45 Room Air 12/23/21 14:35 Oxymask 5 12/23/21 14:25 Oxymask 5 12/23/21 14:15 Oxymask 5 12/23/21 10:18 Room Air 12/23/21 10:18 Room Air Pain Intensity Back: Pain Intensity: 4 Transfer of Care Handoff Completed per policy Notes Mental Status: alert / awake / arousable and participated in evaluation Patient Amnestic to Procedure: Yes Nausea / Vomiting: adequately controlled Pain: adequately controlled Airway Patency, RR, SpO2: stable & adequate BP & HR: stable & adequate Hydration State: stable & adequate Anesthetic Complications: no major complications apparent and Pt Satisfied with anesthetic care
--- NOTE | 2022-01-01 11:13 | Coding Query ---
BMI To promote full compliance with coding requirements relating to patient care, physician participation is requested in all cases of remote medical coder uncertainty. Please assist us with the question(s) below: Please place an X within the parenthesis (x). If other, please document: BMI 48 was documented in this record for this patient. If the BMI is significant, please check the box that provides a more specific associated diagnosis: ( ) Overweight/Obese ( ) Obesity ( x) Morbid obesity ( ) Obesity Hypoventilation Syndrome (OHS) ( ) Heathy weight, not significant ( ) Underweight/Thin ( ) Other, please specify Thank you Litzy THEODORE
== END 2021-12-23 16:20 | disposition home or self-care (01) | DRG 460 ==
LOC: ASU 09:50 → PACUINP 11:00 → ASU 16:20

== ENCOUNTER 2023-09-21 15:25 | Inpatient (IN) ==
[2023-09-21 16:21] LABS: Basophils # (auto) 0.05 K/uL (0.00-0.20); Basophils % (auto) 0.8 %; Eosinophils # (auto) 0.11 K/uL (0.00-0.50); Eosinophils % (auto) 1.7 %; Hematocrit (blood only) 34.3 % (37.0-47.0); Hemoglobin 10.9 g/dl (12.0-16.0); Immature Granulocytes # (auto) 0.02 K/uL (0.01-0.20); Immature Granulocytes % (auto) 0.3 %; Lymphocytes # (auto) 0.68 K/uL (1.20-3.40); Lymphocytes % (auto) 10.3 %; Mean Corpuscular Hemoglobin 31.4 pg (25.0-34.0); Mean Corpuscular Hgb Conc 31.8 g/dL (32.0-36.0); Mean Corpuscular Volume 98.8 fL (80.0-100.0); Mean Platelet Volume 9.7 fL (9.4-12.4); Monocytes # (auto) 0.45 K/uL (0.11-0.59); Monocytes % (auto) 6.8 %; Neutrophils # (auto) 5.29 K/uL (1.40-6.50); Neutrophils % (auto) 80.1 %; Platelet Count 173 K/uL (130-400); RDW Coefficient of Variation 14.1 % (11.5-14.5); RDW Standard Deviation 51.3 fL (36.4-46.3); Red Blood Count 3.47 M/uL (4.20-5.40)
--- NOTE | 2023-09-21 16:26 | Emergency Department Note ---
History of Present Illness General Chief complaint: Hypotension Time Seen by Provider: 09/21/23 15:52 History of Present Illness Provider complaint: Illness Maximum Pain Intensity: 7 78-year-old female presents to the emergency department. Patient reports she has been feeling ill for the last 2 months. Patient reports she has had fatigue and chills for the last 2 months. Patient reports her Tmax over last 2 months was 99. Patient reports she felt very ill on Wednesday and fell down by sliding down the wall while trying to use the restroom. She reports she was vomiting. Patient reports she has been feeling increasingly weak since falling. Patient denies any hematemesis coffee-ground emesis or bilious vomiting. Patient reports she has been having some cellulitis in her right lower extremity since Wednesday. Home Medications Medication Instructions Recorded Confirmed Type cholecalciferol (vitamin D3) 50 2,000 units PO DAILY 03/16/19 09/21/23 History mcg (2,000 unit) tablet fesoterodine 4 mg tablet,extended 4 mg PO DAILY #90 tabs 11/09/22 09/21/23 Rx release 24 hr (Toviaz) carvedilol 25 mg tablet 25 mg PO BID #180 tabs 11/30/22 09/21/23 Rx verapamil 120 mg 24 hr 120 mg PO DAILY #90 caps 01/18/23 09/21/23 Rx capsule,extended release acetaminophen 650 mg 650 mg PO Q12H PRN Pain 01/25/23 09/21/23 History tablet,extended release (Tylenol 8 Hour) docusate sodium 100 mg capsule 100 mg PO BID 01/25/23 09/21/23 History torsemide 20 mg tablet 10 - 20 mg PO DIRECTED 03/19/23 09/21/23 History sertraline 100 mg tablet 100 mg PO QAM #90 tabs 03/22/23 09/21/23 Rx apixaban 5 mg tablet (Eliquis) 5 mg PO BID #180 tabs 06/28/23 09/21/23 Rx prednisone 5 mg tablet 5 mg PO QAM #90 tabs 07/23/23 09/21/23 Rx simvastatin 10 mg tablet 10 mg PO QPM #90 tabs 07/28/23 09/21/23 Rx tramadol 50 mg tablet 100 mg (2 x 50 mg) PO Q6H PRN Pain 09/16/23 09/21/23 Rx #200 tabs losartan 100 mg tablet 50 mg PO QPM 09/21/23 09/21/23 History turmeric 400 mg capsule 400 mg PO DAILY 09/21/23 09/21/23 History Allergies Allergy/AdvReac Type Severity Reaction Status Date / Time mirabegron [From Myrbetriq] Allergy Severe Facial Verified 09/21/23 18:35 swelling pineapple Allergy Severe RESPIRATORY Verified 09/21/23 18:35 DISTRESS chlorhexidine Allergy Intermediate red rash Verified 09/21/23 18:35 and itching gabapentin Allergy Intermediate swelling Verified 09/21/23 18:35 hydrochlorothiazide AdvReac Severe decreased Verified 09/21/23 18:35 kidney function celecoxib AdvReac Intermediate constant Verified 09/21/23 18:35 chest pain carpet glue Allergy Severe Unknown Uncoded 09/21/23 18:35 Past Med/Surg History Medical History Chronic kidney disease, stage 3a Acute kidney injury Cervical disc disease advanced C5-C6 Diverticular disease Lumbar spinal stenosis Inflammatory polyarthropathy taking prednisone Diastolic dysfunction type 1 per 11/15/2020 echo Urge and stress incontinence Multiple sclerosis benign dx 1998 was on medication for a year and half and now longer takes medication and follows yearly with Dr Christina MARTINEZ GERD (gastroesophageal reflux disease) Hypertension Dyslipidemia Diabetes mellitus, type 2 hx of dm and no longer taking medications. History of deep venous thrombosis Recurrent, on lifetime anticoagulation, recommended by hematology Cardiomyopathy, nonischemic EF 50% Complete heart block s/p PPM 2018 Surgical History S/P fusion of sacroiliac joint right Status post corneal transplant b/l eyes, secondary to fuch dystrophy b/l eyes S/P tonsillectomy S/P appendectomy S/P total hysterectomy and bilateral salpingo-oophorectomy (1978) secondary to fibroids/endometriosis Cardiac pacemaker in situ (2017) [employer] dr bassett and was checked 10/2021 History of bowel resection secondary to diverticular perforation/abscess Status post left hip replacement (2010) Status post cardiac catheterization "07/13/16 [facility] Dr. 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 Beliefs That Will Affect Care: None marital status: / Current Living Situation: Alone How many Children do You have: 1 How many Children do You have Comment: 1 son Feels Safe at Home: Yes Childhood Exposure to Second-Hand Smoke: Yes Diet: regular Diet Comment: regular caffeine: Yes during the past year weight has: remained stable Dental Care, Regularly: No Physical Activity Frequency: Does not Exercise Seatbelt Use: always Sunscreen Use: Yes Assistive Devices: Walker Physical Exam Vital Signs Vital Signs - 24 hr 09/21/23 15:31 09/21/23 16:29 09/21/23 16:30 Temperature 36.4 C L Temperature Source Oral Pulse Rate 67 75 66 Pulse Rate from SpO2 Sensor 65 Pulse Rhythm Regular Pulse Strength Normal Respiratory Rate 14 14 Respiratory Effort / Characteristics Non-Labored Respiratory Depth Normal Respiratory Pattern Regular Blood Pressure 113/64 143/72 H Blood Pressure Mean 80 95 Blood Pressure Position Sitting Pulse Oximetry 99 98 Oxygen Delivery Method Room Air Sepsis Recent Fever Within 48 Hours No Sepsis New/Unexplained Change in Mental Status N/A Sepsis Action Taken by Nursing No Action Required 09/21/23 17:20 Temperature Temperature Source Pulse Rate 67 Pulse Rate from SpO2 Sensor 68 Pulse Rhythm Pulse Strength Respiratory Rate 16 Respiratory Effort / Characteristics Respiratory Depth Respiratory Pattern Blood Pressure Blood Pressure Mean Blood Pressure Position Pulse Oximetry 97 Oxygen Delivery Method Room Air Sepsis Recent Fever Within 48 Hours Sepsis New/Unexplained Change in Mental Status Sepsis Action Taken by Nursing Physical Exam GENERAL: She is oriented to person, place, and time. She appears well-developed and well-nourished. She does not appear distressed. HENT: Exam performed. -Head: Normocephalic and atraumatic. EYES: Conjunctivae and EOM are normal. Pupils are equal, round, and reactive to light. Right eye exhibits no discharge. Left eye exhibits no discharge. No scleral icterus. NECK: Normal range of motion. Neck supple. No JVD present. No spinous process tenderness present. CV: Normal rate, regular rhythm, normal heart sounds and intact distal pulses. There is no peripheral edema. Palpable radial pulses bue. PULM/CHEST: Effort normal and breath sounds normal. No respiratory distress. No stridor. She has no wheezes. She has no rales. ABD: The abdomen is soft and obese. Bowel sounds are normal. She has no distension. No mass is present. There is no tenderness. There is no rebound, no guarding, no Chavez's sign and no tenderness at McBurney's point. Rovsig negative MUSC/SKEL: Pelvis stable. Right lower extremity: Erythema and warmth circumferentially around the right calf. No fluctuant areas. Nikolsky negative. No vesicles. Palpable DP and PT pulse. Left lower extremity: Within normal limits. NEURO: Motor and sensation grossly intact. Course Course 1552: The patient was evaluated in room A12. A complete history and physical exam was performed Cardiac monitoring: An order was placed for continuous cardiac monitoring. The monitor shows a rate of 70 with sinus rhythm interpreted by nm 1825: Vital signs stable. Labs show white blood cell count of 6.6. Hemoglobin 10.9. Coagulation studies within normal limits. VBG shows venous pH of 7.25 with a venous pCO2 of 62. Patient's creatinine is 2.27, increased from her creatinine of 1.3 to 1-month ago. Lactic acid within normal limits. Procalcitonin elevated 2.85. High-sensitivity troponin elevated 251.5. Imaging shows no traumatic injuries. CT of the abdomen pelvis shows gallstones and possible cholecystitis. Repeat physical exam shows no pain on palpation of the abdomen no Chavez sign. It is thought that the patient's suffering from cellulitis of her right lower extremity. Patient will be treated with Rocephin and daptomycin. Discussed case with Dr. Whipple who will admit the patient to his service. Administered Medications Daptomycin 575 mg/ Syringe 11.5 mls @ 5.75 mls/min IV Q24H [facility]; Protocol Stop: 09/28/23 18:14 Last Admin: 09/21/23 19:28 Dose: 5.75 mls/min Documented By: [facility] Discontinued Medications Ceftriaxone Sodium (Rocephin) 1,000 mg in 50 mls @ 100 mls/hr IV NOW STA Stop: 09/21/23 18:35 Last Infusion: 09/21/23 20:50 Dose: Infused Documented By: [facility] Admin: 09/21/23 19:31 Dose: 100 mls/hr Documented By: [facility] Medical Decision Making Laboratory Data Attestation: I reviewed the patient's lab results. 09/21/23 15:40 09/21/23 15:40 Lab Results 09/21/23 09/21/23 09/21/23 Range/Units 15:40 16:28 16:34 WBC 6.60 (4.8-10.8) K/ul RBC 3.47 L (4.20-5.40) M/uL Hgb 10.9 L (12.0-16.0) g/dl POC Hgb 11.6 L (12.0-16.0) g/dl Hct 34.3 L (37.0-47.0) % POC Hct 34 L (37-47) % MCV 98.8 (80.0-100.0) fL MCH 31.4 (25.0-34.0) pg MCHC 31.8 L (32.0-36.0) g/dL RDW Std Deviation 51.3 H (36.4-46.3) fL RDW Coeff of Oliver 14.1 (11.5-14.5) % Plt Count 173 (130-400) K/uL MPV 9.7 (9.4-12.4) fL Immature Gran % (Auto) 0.3 % Neut % (Auto) 80.1 % Lymph % (Auto) 10.3 % [place] % (Auto) 6.8 % Eos % (Auto) 1.7 % Baso % (Auto) 0.8 % Neut # (Auto) 5.29 (1.40-6.50) K/uL Lymph # (Auto) 0.68 L (1.20-3.40) K/uL [place] # (Auto) 0.45 (0.11-0.59) K/uL Eos # (Auto) 0.11 (0.00-0.50) K/uL Baso # (Auto) 0.05 (0.00-0.20) K/uL Immature Gran # (Auto) 0.02 (0.01-0.20) K/uL ESR 85 H (0-30) mm/hr PT 11.3 (9.0-12.0) Seconds INR 1.0 (0.9-1.1) APTT 31 (21-31) Seconds PTT Ratio 1.1 VBG pH 7.25 L (7.36-7.41) VBG pCO2 62 H (38-50) mmHg VBG pO2 < 20 mmHg VBG HCO3 27 mmol/L VBG O2 Saturation < 60.0 % VBG Base Excess -1.4 mEq/L POC Sodium 132 L (135-144) mmol/L Sodium 132 L (136-145) mmol/L POC Potassium 4.8 (3.3-5.0) mmol/L Potassium 4.8 (3.5-5.1) mmol/L POC Chloride 100 L (101-112) mmol/L Chloride 99 (98-107) mmol/L Carbon Dioxide 26 (21-32) mmol/L POC Total CO2 26 (24-31) mmol/L Anion Gap 7 (3-11) POC Anion Gap 12.0 L (16-25) mmol/L POC BUN 42 H (7-18) mg/dl BUN 48 H (6-23) mg/dl Creatinine 2.27 H (0.6-1.2) mg/dl POC Creatinine 2.5 H (0.6-1.3) mg/dl Est Cr Clr Drug Dosing 31.5 ml/min Est GFR ( Amer) 23.4 ml/min Est GFR (Non-Af Amer) 20.2 ml/min BUN/Creatinine Ratio 21.1 H (10-20) Glucose 97 (70-99(Fasting)) mg/dl POC Glucose (other) 97 (70-99) mg/dl Lactate 1.1 (0.4-2.0) mmol/L Calcium 9.3 (8.6-10.3) mg/dl POC Ioniz Calcium Dai 1.22 (1.12-1.32) mmol/l Magnesium 2.3 (1.7-2.4) mg/dl Total Bilirubin 0.5 (0.2-1.0) mg/dl Direct Bilirubin 0.1 (0-0.2) mg/dl AST 48 H (13-39) U/L ALT 19 (7-52) U/L Alkaline Phosphatase 47 (34-104) U/L Total Creatine Kinase (26-192) U/L Troponin I High Sens 251.5 H* (0-14) pg/ml Total Protein 6.4 (6.0-8.3) gm/dl Albumin 3.4 (3.4-5.0) gm/dl Procalcitonin 2.85 H (0-0.5) ng/ml 09/21/23 Range/Units 18:16 WBC (4.8-10.8) K/ul RBC (4.20-5.40) M/uL Hgb (12.0-16.0) g/dl POC Hgb (12.0-16.0) g/dl Hct (37.0-47.0) % POC Hct (37-47) % MCV (80.0-100.0) fL MCH (25.0-34.0) pg MCHC (32.0-36.0) g/dL RDW Std Deviation (36.4-46.3) fL RDW Coeff of Oliver (11.5-14.5) % Plt Count (130-400) K/uL MPV (9.4-12.4) fL Immature Gran % (Auto) % Neut % (Auto) % Lymph % (Auto) % [place] % (Auto) % Eos % (Auto) % Baso % (Auto) % Neut # (Auto) (1.40-6.50) K/uL Lymph # (Auto) (1.20-3.40) K/uL [place] # (Auto) (0.11-0.59) K/uL Eos # (Auto) (0.00-0.50) K/uL Baso # (Auto) (0.00-0.20) K/uL Immature Gran # (Auto) (0.01-0.20) K/uL ESR (0-30) mm/hr PT (9.0-12.0) Seconds INR (0.9-1.1) APTT (21-31) Seconds PTT Ratio VBG pH (7.36-7.41) VBG pCO2 (38-50) mmHg VBG pO2 mmHg VBG HCO3 mmol/L VBG O2 Saturation % VBG Base Excess mEq/L POC Sodium (135-144) mmol/L Sodium (136-145) mmol/L POC Potassium (3.3-5.0) mmol/L Potassium (3.5-5.1) mmol/L POC Chloride (101-112) mmol/L Chloride (98-107) mmol/L Carbon Dioxide (21-32) mmol/L POC Total CO2 (24-31) mmol/L Anion Gap (3-11) POC Anion Gap (16-25) mmol/L POC BUN (7-18) mg/dl BUN (6-23) mg/dl Creatinine (0.6-1.2) mg/dl POC Creatinine (0.6-1.3) mg/dl Est Cr Clr Drug Dosing ml/min Est GFR ( Amer) ml/min Est GFR (Non-Af Amer) ml/min BUN/Creatinine Ratio (10-20) Glucose (70-99(Fasting)) mg/dl POC Glucose (other) (70-99) mg/dl Lactate (0.4-2.0) mmol/L Calcium (8.6-10.3) mg/dl POC Ioniz Calcium Dai (1.12-1.32) mmol/l Magnesium (1.7-2.4) mg/dl Total Bilirubin (0.2-1.0) mg/dl Direct Bilirubin (0-0.2) mg/dl AST (13-39) U/L ALT (7-52) U/L Alkaline Phosphatase (34-104) U/L Total Creatine Kinase 175 (26-192) U/L Troponin I High Sens 229.2 H* (0-14) pg/ml Total Protein (6.0-8.3) gm/dl Albumin (3.4-5.0) gm/dl Procalcitonin (0-0.5) ng/ml Imaging Data Attestation: I personally reviewed and interpreted this imaging study as follows: My Impression: Chest x-ray negative. Airway clear. No pneumothorax. No consolidation. cardiomegaly and cephalization.. No free air under the diaphragm. No fractures of the skeletal structures. Radiologist's Impression: Chest X-Ray 09/21/23 16:06 XR chest 1V portable HISTORY: 78 years-old Female Sepsis acute sepsis COMPARISON: 10/23/2021 TECHNIQUE: AP view of the chest FINDINGS: Cardiac silhouette is enlarged. Dual lead left subclavian pacer. Hypoinflation. Pulmonary vascular congestion with interstitial coarsening. No pneumothorax or large pleural effusion. No lobar airspace consolidation. The bones appear grossly intact. IMPRESSION: 1. Cardiomegaly with pulmonary vascular congestion. 2. Hypoinflation. ACT 112: Negative or not required by law. The above report was generated using voice recognition software. It may contain grammatical, syntax or spelling errors. Electronically signed by: Ryne oBswell M.D. 09/21/2023 4:[address] 09/21/23 16:06 CT head/brain wo con CLINICAL HISTORY: 78 years-old Female with fall. Acute head and neck, status post fall TECHNIQUE: Multiple axial CT images of the head were obtained without contrast. A dose lowering technique was utilized adhering to the principles of ALARA. CT DOSE: 2803.88 mGy.cm COMPARISON: CT cervical spine of same day FINDINGS: No acute intracranial hemorrhage, midline shift, intracranial mass, hydrocephalus, territorial ischemia or abnormal extra-axial collection. Involutional changes with suggestion of mild chronic microvascular ischemic disease. The calvarium is intact. The paranasal sinuses, mastoid air cells, and middle ear cavities are clear. IMPRESSION: No acute intracranial abnormality or calvarial fracture. ACT 112: Negative or not required by law. The above report was generated using voice recognition software. It may contain grammatical, syntax or spelling errors. Electronically signed by: Ryne Boswell M.D. 09/21/2023 5:[address] 09/21/23 16:07 CT cervical spine wo con CLINICAL HISTORY: 78 years-old Female with fall. Acute neck injury status post fall COMPARISON: Head CT of same day, MRI cervical spine 09/27/2017 TECHNIQUE: Multiple axial CT images of the cervical spine were obtained without contrast. A dose lowering technique was utilized adhering to the principles of ALARA. FINDINGS: Straightening of the normal cervical lordosis. Demineralized appearance of the bones. Moderate multilevel degenerative changes. No prevertebral edema. 3.5 x 2.8 cm soft tissue attenuating lesion within the right tracheoesophageal recess causing mass effect on the adjacent trachea and esophagus and is posterior to the right thyroid lobe. This appears stable in size from the 2018 study and likely represents an exophytic thyroid nodule.. The visualized lung apices appear clear. Left subclavian pacer leads are partially imaged. IMPRESSION: No acute cervical spine fracture or subluxation identified. ACT 112: Negative or not required by law. The above report was generated using voice recognition software. It may contain grammatical, syntax or spelling errors. Electronically signed by: Ryne Boswell M.D. 09/21/2023 5:56 PM Abdomen/Pelvis CT 09/21/23 16:[address] WITHOUT CONTRAST HISTORY: Acute abdominal pain status post fall fall TECHNIQUE: Multiaxial CT images of the abdomen and pelvis were performed without contrast. A dose lowering technique was utilized adhering to the principles of ALARA. COMPARISON STUDY: MR lumbar spine 10/10/2021 FINDINGS: Partially imaged cardiac pacer leads. Coronary artery calcifications. Clear lung bases. No free air. The unenhanced spleen, mildly atrophic pancreas and adrenal glands are unremarkable. Distended gallbladder with cholelithiasis and equivocal wall thickening. No pericholecystic edema. No significant biliary ductal dilation. Unremarkable liver. Cortical thinning of the kidneys. There are a few scattered small renal hypodensities favoring probable cysts. No hydronephrosis. Pelvic structures are partially obscured secondary to artifact related to the left hip arthroplasty. Visualized urinary bladder is unremarkable. Atherosclerosis of the aorta without aneurysm. No lymphadenopathy. No bowel obstruction or bowel wall thickening. Sigmoid colon anastomosis. Colonic diverticulosis. No CT evidence of acute appendicitis. Right SI joint bolts are noted. Severe right femoral acetabular osteoarthritis. No acute fracture identified. IMPRESSION: 1. No acute posttraumatic intra-abdominal or intrapelvic abnormality identified. 2. Cholelithiasis with equivocal gallbladder wall thickening. Findings could be correlated with right upper quadrant ultrasound if there is clinical concern for acute cholecystitis. 3. No acute fracture identified. 4. Severe right femoral acetabular osteoarthritis. 5. Additional findings as above. ACT 112: Negative or not required by law. The above report was generated using voice recognition software. It may contain grammatical, syntax or spelling errors. Electronically signed by: Ryne Boswell M.D. 09/21/2023 6:01 PM ECG Data Attestation: I personally reviewed and interpreted this ECG as follows: Additional Comments: Paced rhythm with a rate of 70. QRS 168 QTc 486. MDM Narrative 1552: The patient was evaluated in room A12. A complete history and physical exam was performed Cardiac monitoring: An order was placed for continuous cardiac monitoring. The monitor shows a rate of 70 with sinus rhythm interpreted by me 1825: Vital signs stable. Labs show white blood cell count of 6.6. Hemoglobin 10.9. Coagulation studies within normal limits. VBG shows venous pH of 7.25 with a venous pCO2 of 62. Patient's creatinine is 2.27, increased from her creatinine of 1.3 to 1-month ago. Lactic acid within normal limits. Procalcitonin elevated 2.85. High-sensitivity troponin elevated 251.5. Imaging shows no traumatic injuries. CT of the abdomen pelvis shows gallstones and possible cholecystitis. Repeat physical exam shows no pain on palpation of the abdomen no Chavez sign. It is thought that the patient's suffering from cellulitis of her right lower extremity. Patient will be treated with Rocephin and daptomycin. Discussed case with Dr. Whipple who will admit the patient to his service. Impression & Plan Acute kidney injury, Cellulitis of right lower extremity Discharge Plan Visit Data Chief Complaint: Hypotension ED Provider: Irving Sales Discharge Problem: Acute kidney injury, Cellulitis of right lower extremity Patient Disposition: Admitted As Inpatient Forms Stand Alone Forms: My [facility] Prescriptions Prescriptions: No Action torsemide 20 mg tablet 10 - 20 mg PO DIRECTED Rx Instructions: PER PT "TAKES 10 MG Q OTHER DAY, WHEN NEEDED WILL TAKE 20 MG, IF SWELLING INCREASES". fesoterodine [Toviaz] 4 mg tablet extended release 24 hr 4 mg PO DAILY Qty: 90 3RF carvedilol 25 mg tablet 25 mg PO BID Qty: 180 3RF verapamil 120 mg capsule,ext rel. pellets 24 hr 120 mg PO DAILY Qty: 90 3RF sertraline 100 mg tablet 100 mg PO QAM Qty: 90 3RF Eliquis 5 mg tablet 5 mg PO BID Qty: 180 3RF prednisone 5 mg tablet 5 mg PO QAM Qty: 90 1RF simvastatin 10 mg tablet 10 mg PO QPM Qty: 90 1RF tramadol 50 mg tablet 100 mg PO Q6H PRN (Reason: Pain) Qty: 200 0RF Rx Instructions: PER PT "TAKE Q6H EVERY DAY, AROUND THE CLOCK, OTHERWISE I CAN'T MOVE AROUND". acetaminophen [Tylenol 8 Hour] 650 mg tablet extended release 650 mg PO Q12H PRN (Reason: Pain) cholecalciferol (vitamin D3) 2,000 unit tablet 2,000 units PO DAILY docusate sodium 100 mg capsule 100 mg PO BID turmeric 400 mg Capsule 400 mg PO DAILY losartan 100 mg tablet 50 mg PO QPM Rx Instructions: PER PT "HOLDING DOSE FOR 09/20 D/T LOW B/P". Referrals Referrals: Amy Sharpe DO [Primary Care Provider] -
--- NOTE | 2023-09-21 16:26 | XRay Report ---
XR chest 1V portable HISTORY: 78 years-old Female Sepsis acute sepsis COMPARISON: 10/23/2021 TECHNIQUE: AP view of the chest FINDINGS: Cardiac silhouette is enlarged. Dual lead left subclavian pacer. Hypoinflation. Pulmonary vascular co ngestion with interstitial coarsening. No pneumothorax or large pleural effusion. No lobar airspace c onsolidation. The bones appear grossly intact. IMPRESSION: 1. Cardiomegaly with pulmonary vascular congestion. 2. Hypoinflation. ACT 112: Negative or not required by law. The above report was generated using voice recognition software. It may contain grammatical, syntax o r spelling errors. Electronically signed by: Ryne Boswell M.D. 09/21/2023 4:24 PM
[2023-09-21 16:36] LABS: Albumin Level 3.4 gm/dl (3.4-5.0); BUN Creatinine Ratio 21.1 (10-20); Bilirubin Direct 0.1 mg/dl (0-0.2); Bilirubin,Total 0.5 mg/dl (0.2-1.0); Calcium 9.3 mg/dl (8.6-10.3); Creatinine Clr Calc Pharmacy 31.5 ml/min; Est GFR (African American) 23.4 ml/min; Est GFR (Non-African American) 20.2 ml/min; Magnesium 2.3 mg/dl (1.7-2.4); Potassium 4.8 mmol/L (3.5-5.1); Total Protein 6.4 gm/dl (6.0-8.3)
[2023-09-21 16:44] LABS: Partial Thromboplastin Ratio 1.1; Partial Thromboplastin Time 31 Seconds (21-31); Prothrombin Time 11.3 Seconds (9.0-12.0)
[2023-09-21 16:47] LABS: Base Excess VBG -1.4 mEq/L; HCO3 VBG 27 mmol/L; Oxygen Saturation VBG < 60.0 %; PCO2 VBG 62 mmHg (38-50); PO2 VBG < 20 mmHg; pH VBG 7.25 (7.36-7.41)
[2023-09-21 16:48] LABS: Troponin I High Sensitivity 251.5 pg/ml (0-14)
[2023-09-21 16:48] LABS: iSTAT Creatinine 2.5 mg/dl (0.6-1.3); iSTAT Hemoglobin 11.6 g/dl (12.0-16.0); iSTAT Ionized Calcium 1.22 mmol/l (1.12-1.32); iSTAT Potassium 4.8 mmol/L (3.3-5.0)
--- NOTE | 2023-09-21 17:52 | CT Scan Report ---
CT head/brain wo con CLINICAL HISTORY: 78 years-old Female with fall. Acute head and neck, status post fall TECHNIQUE: Multiple axial CT images of the head were obtained without contrast. A dose lowering tech nique was utilized adhering to the principles of ALARA. CT DOSE: 2803.88 mGy.cm COMPARISON: CT cervical spine of same day FINDINGS: No acute intracranial hemorrhage, midline shift, intracranial mass, hydrocephalus, territorial ischem ia or abnormal extra-axial collection. Involutional changes with suggestion of mild chronic microvasc ular ischemic disease. The calvarium is intact. The paranasal sinuses, mastoid air cells, and middle ear cavities are clear . IMPRESSION: No acute intracranial abnormality or calvarial fracture. ACT 112: Negative or not required by law. The above report was generated using voice recognition software. It may contain grammatical, syntax o r spelling errors. Electronically signed by: Ryne Boswell M.D. 09/21/2023 5:51 PM
--- NOTE | 2023-09-21 17:57 | CT Scan Report ---
CT cervical spine wo con CLINICAL HISTORY: 78 years-old Female with fall. Acute neck injury status post fall COMPARISON: Head CT of same day, MRI cervical spine 09/27/2017 TECHNIQUE: Multiple axial CT images of the cervical spine were obtained without contrast. A dose lowering technique was utilized adhering t o the principles of ALARA. FINDINGS: Straightening of the normal cervical lordosis. Demineralized appearance of the bones. Moder ate multilevel degenerative changes. No prevertebral edema. 3.5 x 2.8 cm soft tissue attenuating lesion within the right tracheoesophagea l recess causing mass effect on the adjacent trachea and esophagus and is posterior to the right thyr oid lobe. This appears stable in size from the 2018 study and likely represents an exophytic thyroid nodule.. The visualized lung apices appear clear. Left subclavian pacer leads are partially imaged. IMPRESSION: No acute cervical spine fracture or subluxation identified. ACT 112: Negative or not required by law. The above report was generated using voice recognition software. It may contain grammatical, syntax o r spelling errors. Electronically signed by: Ryne Boswell M.D. 09/21/2023 5:56 PM
--- NOTE | 2023-09-21 18:03 | CT Scan Report ---
ABDOMEN AND PELVIS CT WITHOUT CONTRAST HISTORY: Acute abdominal pain status post fall fall TECHNIQUE: Multiaxial CT images of the abdomen and pelvis were performed without contrast. A dose lo wering technique was utilized adhering to the principles of ALARA. COMPARISON STUDY: MR lumbar spine 10/10/2021 FINDINGS: Partially imaged cardiac pacer leads. Coronary artery calcifications. Clear lung bases. No free air. The unenhanced spleen, mildly atrophic pancreas and adrenal glands are unremarkable. Disten ded gallbladder with cholelithiasis and equivocal wall thickening. No pericholecystic edema. No signi ficant biliary ductal dilation. Unremarkable liver. Cortical thinning of the kidneys. There are a few scattered small renal hypodensities favoring probab le cysts. No hydronephrosis. Pelvic structures are partially obscured secondary to artifact related t o the left hip arthroplasty. Visualized urinary bladder is unremarkable. Atherosclerosis of the aorta without aneurysm. No lymphadenopathy. No bowel obstruction or bowel wall thickening. Sigmoid colon anastomosis. Colonic diverticulosis. No CT evidence of acute appendicitis. Right SI joint bolts are noted. Severe right femoral acetabular os teoarthritis. No acute fracture identified. IMPRESSION: 1. No acute posttraumatic intra-abdominal or intrapelvic abnormality identified. 2. Cholelithiasis with equivocal gallbladder wall thickening. Findings could be correlated with right upper quadrant ultrasound if there is clinical concern for acute cholecystitis. 3. No acute fracture identified. 4. Severe right femoral acetabular osteoarthritis. 5. Additional findings as above. ACT 112: Negative or not required by law. The above report was generated using voice recognition software. It may contain grammatical, syntax o r spelling errors. Electronically signed by: Ryne Boswell M.D. 09/21/2023 6:01 PM
[2023-09-21 18:59] LABS: Troponin I High Sensitivity 229.2 pg/ml (0-14)
--- NOTE | 2023-09-21 19:07 | History & Physical Report ---
Date of Service September 21, 2023 Assessment & Plan (1) Cellulitis of right lower extremity: Plan: No leukocytosis; afebrile on arrival One episode of low-grade fever at home on Saturday 09/16 Patient reports the erythema in her left lower extremity became worse after Wednesday PCT elevated at 2.85 on arrival Lactate WNL ESR elevated 85 CRP pending Blood cultures ordered MRSA nasal swab ordered, pending Daptomycin 4mg/kg IV q24h; hold statin Rocephin 1000 mg IV q24h Acetaminophen as needed for pain/fever A.m. CBC, BMP, CRP (2) Hypotension: Plan: BP 87/49 in PCP office and on arrival Patient checks her home BP via cuff, and reports it has been around this for the past 3 days Hold losartan and verapamil Continue carvedilol for now (3) Acute kidney injury: Plan: BUN 48, creatinine 2.27 (baseline 1.32), EGFR 20.2 Avoid nephrotoxic agents Hold losartan Will defer IVF for now in the setting of chest pressure/lower extremity edema Recheck a.m. BMP (4) Chest pressure: Plan: Chest pressure x 1 month, which patient attributes to increased fatigue CXR with pulmonary vascular congestion/hypoinflation BNP elevated at 192 Troponin elevated at 251--> 229; trend q6h x 2 Clinically, patient denies chest pain/pleuritic CP EKG revealed ventricularly paced rhythm with frequent AV dual placed complexes at 70 bpm; QTc 486 Last echo on 12/15/2022 revealed LV EF at 55% Most recent cardiology note in April 2023, does mention gradual decline in exercise tolerance over the years (NYHA class III HF equivalent symptoms) Echocardiogram ordered for 09/21 (5) Lower extremity edema: Plan: Patient is currently on torsemide 10 mg - 20mg daily (with instructions to take 20 mg for increased swelling) Will hold off on diuresis tonight in the setting of hypotension/KARINA Continue torsemide 20 mg p.o. daily for now (6) Hyponatremia: Plan: Mild; Na 132 May be secondary to hypervolemia; recheck after diuresis Follow a.m. BMP (7) Diabetes mellitus, type 2: Plan: Last A1c 5.8% on 03/19/2023 Hx of diabetes Not currently on home medications Diet controlled but now AM A1c (8) History of deep venous thrombosis: Plan: Continue apixaban (9) Elevated troponin: (10) Acute on chronic heart failure with preserved ejection fraction: Plan [facility] Full code AHA diet VTE PPx: On Eliquis History of Present Illness Chief Complaint: Hypotension Primary Care Provider: Amy Sharpe DO Jill is a 78-year-old female with PMH of T2DM, inflammatory polyarthropathy, pacemaker, urge and stress incontinence, complete heart block, DVT, multiple sclerosis, and CKD stage IIIa. She presented for hypotension of 88/50 at her PCPs office on 09/20, as well as increased fatigue, dizziness, and near syncope. Patient reports that she measures her blood pressure at home and is normally around 120/70, however the past 3 days it has been around 87/43. She also reports that she has had no energy over the last 3 months, with an acute worsening last week. Patient developed a low-grade fever (99 F) and chills on Saturday 09/16. She also reports that she had trouble moving her legs Wednesday night, and at one point had to slide to the floor with her back against the wall. No recent falls, fainting, or injury/trauma. Patient reports that she took all of her regular morning medications today except diuretic (as she was concerned that it would cause her blood pressure to decrease). No recent change in medications. She does note her legs have increased pain and swelling over the past week, and she first noticed the erythematous rash on her right lower extremity after Wednesday night. 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 No sick contacts. Patient has not been taking any additional medications for her fever/chills/pain. She has not been eating or drinking well the past week; reports she had only toast on Wednesday, and some chicken on Wednesday. Of note, the patient does endorse constant chest pressure that has been ongoing over the past month, which patient attributes to being exhausted. Patient is hypertensive at 141/64 at time of admission; vitals otherwise stable. ED course: Daptomycin 575 mg IV Rocephin 1000 mg IV ROS: Patient endorses fatigue, chills, lightheadedness, dizziness (head is spinning), constant BANERJEE x 3 weeks, low-grade fever (on Wednesday night), chest heaviness, chest palpitations, productive cough, nausea, projectile vomiting on wednesday night, increased episodes of urinary incontinence (ongoing problem), and swelling/pain in the legs b/l. Patient denies chest pain, pleuritic CP, abdominal pain, SOB at rest, hematemesis, changes in urinary/bowel habits, burning with urination, blood in urine/stool, or numbness/tingling in the legs. Allergies Allergy/AdvReac Type Severity Reaction Status Date / Time mirabegron [From Myrbetriq] Allergy Severe Facial Verified 09/21/23 18:35 swelling pineapple Allergy Severe RESPIRATORY Verified 09/21/23 18:35 DISTRESS chlorhexidine Allergy Intermediate red rash Verified 09/21/23 18:35 and itching gabapentin Allergy Intermediate swelling Verified 09/21/23 18:35 hydrochlorothiazide AdvReac Severe decreased Verified 09/21/23 18:35 kidney function celecoxib AdvReac Intermediate constant Verified 09/21/23 18:35 chest pain carpet glue Allergy Severe Unknown Uncoded 09/21/23 18:35 Home Medications Medication Instructions Recorded Confirmed Type cholecalciferol (vitamin D3) 50 2,000 units PO DAILY 03/16/19 09/21/23 History mcg (2,000 unit) tablet fesoterodine 4 mg tablet,extended 4 mg PO DAILY #90 tabs 11/09/22 09/21/23 Rx release 24 hr (Toviaz) carvedilol 25 mg tablet 25 mg PO BID #180 tabs 11/30/22 09/21/23 Rx verapamil 120 mg 24 hr 120 mg PO DAILY #90 caps 01/18/23 09/21/23 Rx capsule,extended release acetaminophen 650 mg 650 mg PO Q12H PRN Pain 01/25/23 09/21/23 History tablet,extended release (Tylenol 8 Hour) docusate sodium 100 mg capsule 100 mg PO BID 01/25/23 09/21/23 History torsemide 20 mg tablet 10 - 20 mg PO DIRECTED 03/19/23 09/21/23 History sertraline 100 mg tablet 100 mg PO QAM #90 tabs 03/22/23 09/21/23 Rx apixaban 5 mg tablet (Eliquis) 5 mg PO BID #180 tabs 06/28/23 09/21/23 Rx prednisone 5 mg tablet 5 mg PO QAM #90 tabs 07/23/23 09/21/23 Rx simvastatin 10 mg tablet 10 mg PO QPM #90 tabs 07/28/23 09/21/23 Rx tramadol 50 mg tablet 100 mg (2 x 50 mg) PO Q6H PRN Pain 09/16/23 09/21/23 Rx #200 tabs losartan 100 mg tablet 50 mg PO QPM 09/21/23 09/21/23 History turmeric 400 mg capsule 400 mg PO DAILY 09/21/23 09/21/23 History Past Med/Surg History Medical History Chronic kidney disease, stage 3a Acute kidney injury Cervical disc disease Diverticular disease Lumbar spinal stenosis Inflammatory polyarthropathy Diastolic dysfunction Urge and stress incontinence Multiple sclerosis GERD (gastroesophageal reflux disease) Hypertension Dyslipidemia Diabetes mellitus, type 2 History of deep venous thrombosis Cardiomyopathy, nonischemic Complete heart block Surgical History S/P fusion of sacroiliac joint Status post corneal transplant S/P tonsillectomy S/P appendectomy S/P total hysterectomy and bilateral salpingo-oophorectomy (1978) Cardiac pacemaker in situ (2017) History of bowel resection Status post left hip replacement (2010) Status post cardiac catheterization Family History Father Oral cancer Myocardial infarction Heart disease Hypertension Aunt Breast cancer Mother End stage renal disease Hypertension Denies family history of Ovarian cancer Prostate cancer Colorectal cancer Social History Smoking Status: Never smoker Second Hand Exposure: No; Do You Dip or Chew Tobacco: No; Hx Alcohol Use: Yes Alcohol type: wine Hx Substance Use: No Preferred Language: Dutch Communication Ability: Effective Visual Impairment: No Limitations Hearing Ability: Normal Asphalt Layer Required: No Beliefs That Will Affect Care: None marital status: / Current Living Situation: Alone How many Children do You have: 1 How many Children do You have Comment: 1 son Feels Safe at Home: Yes Childhood Exposure to Second-Hand Smoke: Yes Diet: regular Diet Comment: regular caffeine: Yes during the past year weight has: remained stable Dental Care, Regularly: No Physical Activity Frequency: Does not Exercise Seatbelt Use: always Sunscreen Use: Yes Assistive Devices: Walker and Wheelchair Review of Systems 2 Review of Systems: See HPI above Physical Exam 2 Physical Exam: General: no acute distress; dry cough; pleasant affect; non-toxic appearing; well-nourished; cooperative; 97% SpO2 on RA HEENT: normocephalic, atraumatic; no scleral icterus; PERRLA; moist mucus membrane; vision and hearing grossly intact Neck: supple; no lymphadenopathy; trachea midline Skin: warm, dry without signs of tenting; no cyanosis; no rashes, bruising, lesions, or erythema noted CV: chest wall NTP; RRR; S1/S2 normal; no murmurs/rubs/gallops; pulses intact and symmetric at radial, DP, and PT Lungs: no acute respiratory distress; symmetrical chest wall expansion; clear breath sounds across all lung josue w/o adventitious sounds; no wheezing ABD: Soft, NTP; BS present; no rebound/guarding; no distention MSK: no tics or fasciculations; nonpitting edema in the lower extremities bilaterally; right lower extremity is erythematous and warm to touch extending from the dorsal aspect of the foot to the knee (see photos below) Neuro: A&Ox3; normal mood and affect; fluent speech; no focal deficits; sensation grossly intact and symmetric in the LEs b/l Results & Data Results & Data Vital Signs (Past 12 Hours) Vital Signs Temp Pulse Resp BP Pulse Ox O2 Del Method 09/21/23 17:20 67 16 97 Room Air 09/21/23 16:30 66 14 143/72 H 98 09/21/23 16:29 75 09/21/23 15:31 36.4 C L 67 14 113/64 99 Room Air Laboratory Results Abnormal lab results 09/21/23 09/21/23 09/21/23 Range/Units 15:40 16:28 16:34 RBC 3.47 L (4.20-5.40) M/uL Hgb 10.9 L (12.0-16.0) g/dl POC Hgb 11.6 L (12.0-16.0) g/dl Hct 34.3 L (37.0-47.0) % POC Hct 34 L (37-47) % MCHC 31.8 L (32.0-36.0) g/dL RDW Std Deviation 51.3 H (36.4-46.3) fL Lymph # (Auto) 0.68 L (1.20-3.40) K/uL VBG pH 7.25 L (7.36-7.41) VBG pCO2 62 H (38-50) mmHg POC Sodium 132 L (135-144) mmol/L Sodium 132 L (136-145) mmol/L POC Chloride 100 L (101-112) mmol/L POC Anion Gap 12.0 L (16-25) mmol/L POC BUN 42 H (7-18) mg/dl BUN 48 H (6-23) mg/dl Creatinine 2.27 H (0.6-1.2) mg/dl POC Creatinine 2.5 H (0.6-1.3) mg/dl BUN/Creatinine Ratio 21.1 H (10-20) AST 48 H (13-39) U/L Troponin I High Sens 251.5 H* (0-14) pg/ml Procalcitonin 2.85 H (0-0.5) ng/ml 09/20/ Range/Units 18:16 RBC (4.20-5.40) M/uL Hgb (12.0-16.0) g/dl POC Hgb (12.0-16.0) g/dl Hct (37.0-47.0) % POC Hct (37-47) % MCHC (32.0-36.0) g/dL RDW Std Deviation (36.4-46.3) fL Lymph # (Auto) (1.20-3.40) K/uL VBG pH (7.36-7.41) VBG pCO2 (38-50) mmHg POC Sodium (135-144) mmol/L Sodium (136-145) mmol/L POC Chloride (101-112) mmol/L POC Anion Gap (16-25) mmol/L POC BUN (7-18) mg/dl BUN (6-23) mg/dl Creatinine (0.6-1.2) mg/dl POC Creatinine (0.6-1.3) mg/dl BUN/Creatinine Ratio (10-20) AST (13-39) U/L Troponin I High Sens 229.2 H* (0-14) pg/ml Procalcitonin (0-0.5) ng/ml Diagnostic Findings Chest X-Ray 09/21/23 16:06 XR chest 1V portable HISTORY: 78 years-old Female Sepsis acute sepsis COMPARISON: 10/23/2021 TECHNIQUE: AP view of the chest FINDINGS: Cardiac silhouette is enlarged. Dual lead left subclavian pacer. Hypoinflation. Pulmonary vascular congestion with interstitial coarsening. No pneumothorax or large pleural effusion. No lobar airspace consolidation. The bones appear grossly intact. IMPRESSION: 1. Cardiomegaly with pulmonary vascular congestion. 2. Hypoinflation. ACT 112: Negative or not required by law. The above report was generated using voice recognition software. It may contain grammatical, syntax or spelling errors. Electronically signed by: Ryne Boswell M.D. 09/21/2023 4:[address] 09/21/23 16:06 CT head/brain wo con CLINICAL HISTORY: 78 years-old Female with fall. Acute head and neck, status post fall TECHNIQUE: Multiple axial CT images of the head were obtained without contrast. A dose lowering technique was utilized adhering to the principles of ALARA. CT DOSE: 2803.88 mGy.cm COMPARISON: CT cervical spine of same day FINDINGS: No acute intracranial hemorrhage, midline shift, intracranial mass, hydrocephalus, territorial ischemia or abnormal extra-axial collection. Involutional changes with suggestion of mild chronic microvascular ischemic disease. The calvarium is intact. The paranasal sinuses, mastoid air cells, and middle ear cavities are clear. IMPRESSION: No acute intracranial abnormality or calvarial fracture. ACT 112: Negative or not required by law. The above report was generated using voice recognition software. It may contain grammatical, syntax or spelling errors. Electronically signed by: Ryne Boswell M.D. 09/21/2023 5:[address] 09/21/23 16:07 CT cervical spine wo con CLINICAL HISTORY: 78 years-old Female with fall. Acute neck injury status post fall COMPARISON: Head CT of same day, MRI cervical spine 09/27/2017 TECHNIQUE: Multiple axial CT images of the cervical spine were obtained without contrast. A dose lowering technique was utilized adhering to the principles of ALARA. FINDINGS: Straightening of the normal cervical lordosis. Demineralized appearance of the bones. Moderate multilevel degenerative changes. No prevertebral edema. 3.5 x 2.8 cm soft tissue attenuating lesion within the right tracheoesophageal recess causing mass effect on the adjacent trachea and esophagus and is posterior to the right thyroid lobe. This appears stable in size from the 2018 study and likely represents an exophytic thyroid nodule.. The visualized lung apices appear clear. Left subclavian pacer leads are partially imaged. IMPRESSION: No acute cervical spine fracture or subluxation identified. ACT 112: Negative or not required by law. The above report was generated using voice recognition software. It may contain grammatical, syntax or spelling errors. Electronically signed by: Ryne Boswell M.D. 09/21/2023 5:56 PM Abdomen/Pelvis CT 09/21/23 16:[address] WITHOUT CONTRAST HISTORY: Acute abdominal pain status post fall fall TECHNIQUE: Multiaxial CT images of the abdomen and pelvis were performed without contrast. A dose lowering technique was utilized adhering to the principles of ALARA. COMPARISON STUDY: MR lumbar spine 10/10/2021 FINDINGS: Partially imaged cardiac pacer leads. Coronary artery calcifications. Clear lung bases. No free air. The unenhanced spleen, mildly atrophic pancreas and adrenal glands are unremarkable. Distended gallbladder with cholelithiasis and equivocal wall thickening. No pericholecystic edema. No significant biliary ductal dilation. Unremarkable liver. Cortical thinning of the kidneys. There are a few scattered small renal hypodensities favoring probable cysts. No hydronephrosis. Pelvic structures are partially obscured secondary to artifact related to the left hip arthroplasty. Visualized urinary bladder is unremarkable. Atherosclerosis of the aorta without aneurysm. No lymphadenopathy. No bowel obstruction or bowel wall thickening. Sigmoid colon anastomosis. Colonic diverticulosis. No CT evidence of acute appendicitis. Right SI joint bolts are noted. Severe right femoral acetabular osteoarthritis. No acute fracture identified. IMPRESSION: 1. No acute posttraumatic intra-abdominal or intrapelvic abnormality identified. 2. Cholelithiasis with equivocal gallbladder wall thickening. Findings could be correlated with right upper quadrant ultrasound if there is clinical concern for acute cholecystitis. 3. No acute fracture identified. 4. Severe right femoral acetabular osteoarthritis. 5. Additional findings as above. ACT 112: Negative or not required by law. The above report was generated using voice recognition software. It may contain grammatical, syntax or spelling errors. Electronically signed by: Ryne Boswell M.D. 09/21/2023 6:01 PM ECG Additional Comments: EKG revealed ventricular paced rhythm with frequent AV dual paced complexes at 70 bpm; QTc 486 Code Status & VTE Plan Code Status Full code VTE Prophylaxis Plan VTE Prophylaxis will be ordered: Yes Supervising Physician Co-Signing Physician Notes I personally saw and examined the patient. I independently reviewed the labs, EKG, imaging, problem list, medication list, past medical history and family history. I verified all larios points and agree with Dinesh Vick PA-C with the following exceptions and/or additions: 78 year old female presents to the ER with right leg swelling and erythema. Also having chest pressure, shortness of breath and orthopnea. O/E HS RRR, no murmurs, Chest - poor inspiratory effort throughout, Abdo SNT, Erythema and swelling or RLE from knee to toes, b/l pitting edema A/P Cellulitis - continue daptomycin and ceftriaxone, MRSA nasal swab taken to consider stopping daptomycin Acute congestive heart failure - as evidenced by elevated BNP, significant peripheral edema and pulmonary edema on CXR. Unable to diurese at current time due to hypotension, hopefully once off losartan and verapamil BP will improve enough for diuresis tomorrow. TTE. KARINA - suspect on the basis of hypotension and hopefully will improve off anti- hypertensives. Can consider small boluses of fluids overnight if MAP < 65 although ideally would avoid as overall fluid appears hypervolemic PG Care Time/CCT Total # of Minutes Spent Total Time Spent with Patient: Total time spent is greater than 50% in coordination of care (as documented) at patient's floor/unit and/or counseling patient: Coding [place] [address] INT INP/OBS CARE 3/75MIN Patient Type Established Medical Decision Making High Complexity Diagnoses Cellulitis of right lower extremity L03.115 Hypotension I95.9 Acute kidney injury N17.9 Chest pressure R07.89 Lower extremity edema R60.0 Hyponatremia E87.1 Diabetes mellitus, type 2 E11.9 History of deep venous thrombosis Z86.718 Elevated troponin R79.89 Acute on chronic heart failure with preserved ejection fraction I50.33
[2023-09-21] MEDS: DAPTOmycin 575 MG in SYRINGE 0 ML IV SCH (19:28)
[2023-09-21] MEDS: cefTRIAXone SODIUM 1,000 MG/50 ML BAG IV STA (19:31)
[2023-09-21] MEDS: traMADol HCL 50 MG TABLET PO STA (22:46)
[2023-09-21] MEDS ORDERED: DEXTROSE 50% 50 ML SYRINGE IV PRN (22:58)
[2023-09-21] MEDS ORDERED: GLUCOSE 10 TAB/TUBE PO PRN (22:58)
[2023-09-21] MEDS ORDERED: GLUCOSE 40% GEL 15 GM TUBE PO PRN (22:58)
[2023-09-21] MEDS ORDERED: CARBOHYDRATES FOR HYPOGLYCEMIA PO PRN (22:58)
[2023-09-21] MEDS ORDERED: HYDROmorphone INJ 0.5 MG/0.5 ML SYR IV PRN (22:58)
[2023-09-21] MEDS ORDERED: TORSEMIDE 20 MG TAB PO PRN (22:58)
[2023-09-21] MEDS ORDERED: ACETAMINOPHEN 325 MG TAB PO PRN (22:58)
[2023-09-21] MEDS ORDERED: ONDANSETRON INJ 2 MG/ML 2 ML VIAL IV PRN (22:58)
[2023-09-21] MEDS ORDERED: GLUCAGON FOR INJ 1 MG VIAL SQ PRN (22:58)
[2023-09-21] MEDS: cefTRIAXone SODIUM 1,000 MG in DEXTROSE 5 % MINI-B 50 ML IV STA (23:50)
[2023-09-21] MEDS: APIXABAN 5 MG TABLET PO SCH (23:50)
[2023-09-21] MEDS: DOCUSATE SODIUM 100 MG CAP PO SCH (23:50)
[2023-09-21] MEDS: carvediloL 25 MG TAB PO SCH (23:50)
[2023-09-22] MEDS: HYDROmorphone INJ 0.5 MG/0.5 ML SYR IV PRN (01:51)
[2023-09-22 06:18] LABS: Basophils # (auto) 0.05 K/uL (0.00-0.20); Basophils % (auto) 0.7 %; Eosinophils # (auto) 0.21 K/uL (0.00-0.50); Eosinophils % (auto) 3.1 %; Hematocrit (blood only) 33.2 % (37.0-47.0); Hemoglobin 10.6 g/dl (12.0-16.0); Immature Granulocytes # (auto) 0.02 K/uL (0.01-0.20); Immature Granulocytes % (auto) 0.3 %; Lymphocytes # (auto) 1.09 K/uL (1.20-3.40); Lymphocytes % (auto) 16.2 %; Mean Corpuscular Hemoglobin 31.8 pg (25.0-34.0); Mean Corpuscular Hgb Conc 31.9 g/dL (32.0-36.0); Mean Corpuscular Volume 99.7 fL (80.0-100.0); Mean Platelet Volume 9.8 fL (9.4-12.4); Monocytes # (auto) 0.79 K/uL (0.11-0.59); Monocytes % (auto) 11.8 %; Neutrophils # (auto) 4.56 K/uL (1.40-6.50); Neutrophils % (auto) 67.9 %; Nucleated RBC # (auto) 0.02 K/uL (0.00-0.12); Nucleated RBC % (auto) 0.3 %; Platelet Count 164 K/uL (130-400); RDW Standard Deviation 52.3 fL (36.4-46.3); Red Blood Count 3.33 M/uL (4.20-5.40); White Blood Count 6.72 K/ul (4.8-10.8)
[2023-09-22 06:26] LABS: BUN Creatinine Ratio 23.8 (10-20); C Reactive Protein 14.87 mg/dl (0-0.5); Calcium 9.4 mg/dl (8.6-10.3); Creatinine Clr Calc Pharmacy 42.5 ml/min; Est GFR (African American) 33.6 ml/min; Potassium 4.5 mmol/L (3.5-5.1)
[2023-09-22 06:34] LABS: Troponin I High Sensitivity 237.6 pg/ml (0-14)
--- NOTE | 2023-09-22 06:34 | Communication Note ---
Date of Service: September 22, 2023 Notified of recurrent chest pain. Evaluated pt at bedside; pt was asleep. Woke her up, she noted recurrent chest pain, unchanged from admission and same pain she states she has been having intermittently x 1 month. Hemodynamically stable with lungs clear to auscultation B/L,heart with RRR, in no acute distress. Repeat EKG largely unchanged from prior, repeat troponin pending- correlate with EKG.
[2023-09-22 06:38] LABS: Appearance Urine Clear (Clear); Bilirubin Urine Negative (Negative); Blood Urine Negative (Negative); Color Urine Yellow; Glucose Urine UA Negative (Negative); Ketones Urine Negative (Negative); Leukocyte Esterase Urine Negative (Negative); Nitrite Urine Negative (Negative); Protein Urine Negative (Negative); Specific Gravity Urine 1.012 (1.000-1.030); Urobilinogen Urine Negative (Negative); pH Urine 5.5 (4.5-7.5)
[2023-09-22 07:40] LABS: Estimated Average Glucose 123 mg/dl; Hemoglobin A1C 5.9 % (4.5-5.6)
[2023-09-22] MEDS: PERFLUTREN LIPID MICROSPHERE (DEFINITY) IV ONE (07:57)
[2023-09-22] MEDS: OXYBUTYNIN CHLORIDE XL 5 MG TABCR PO SCH (08:13)
[2023-09-22] MEDS: SERTRALINE HCL 100 MG TABLET PO SCH (08:13)
[2023-09-22] MEDS: predniSONE 5 MG TAB PO SCH (08:13)
--- NOTE | 2023-09-22 12:25 | Hospitalist Progress Note ---
Date of Service September 22, 2023 Assessment & Plan (1) Sepsis: Plan: Sepsis POA Sepsis secondary to right lower extremity cellulitis, associated with hypotension. Present on admission Resolving following IV fluids, IV antibiotics Cultures remain negative. (2) Cellulitis of right lower extremity: Plan: Patient admitted to the hospital on account of worsening left lower extremity redness and swelling, failed outpatient management. One episode of low-grade fever at home on Saturday 09/16 Patient reports the erythema in her left lower extremity became worse after Wednesday Received a dose of daptomycin in the ED, transition to IV Rocephin Continue for now Cultures negative so far. Area of erythema has been marked off to monitor for changes (3) Hypotension: Plan: Now resolved Will resume her home blood pressure medicines. (4) Acute kidney injury: Plan: Improving KARINA, stable creatinine now 1.68 plan continue to hold losartan Avoid nephrotoxic's. (5) Chest pressure: Plan: Chest pressure has resolved CXR with pulmonary vascular congestion/hypoinflation BNP elevated at 192 Troponin elevated at 251--> 229; trend q6h x 2 Clinically, patient denies chest pain/pleuritic CP EKG revealed ventricularly paced rhythm with frequent AV dual placed complexes at 70 bpm; QTc 486 Last echo on 12/15/2022 revealed LV EF at 55% Most recent cardiology note in April 2023, does mention gradual decline in exercise tolerance over the years (NYHA class III HF equivalent symptoms) Echocardiogram ordered for 09/21 (6) Lower extremity edema: Plan: Continue torsemide 20 mg p.o. daily for now (7) Hyponatremia: Plan: Mild; Na 132 May be secondary to hypervolemia; recheck after diuresis Follow a.m. BMP (8) Diabetes mellitus, type 2: Plan: Last A1c 5.8% on 03/19/2023 Hx of diabetes Not currently on home medications Diet controlled but now AM A1c (9) History of deep venous thrombosis: Plan: Continue apixaban (10) Elevated troponin: (11) Acute on chronic heart failure with preserved ejection fraction: Plan Disposition: Continue to monitor Full code AHA diet VTE PPx: On Eliquis Admission and Anticipated Discharge Date Admission Date: September 21, 2023 Subjective Patient seen and examined today, denies any new complaints, tolerating diet. Review of Systems Review of Systems: All systems reviewed are negative, apart from the ones contained in the history. Physical Exam Physical Exam: The patient is awake, alert and oriented 3, well developed and well nourished, normocephalic and atraumatic, lying in bed and in no acute distress. HEENT--PERRL, EOMI, mucous membranes and oropharynx mildly dry Neck--supple. No JVD. No bruits. Thyroid normal, trachea midline, no adenopathy. Heart--normal S1 and S2. No murmurs, rubs or gallops. Lungs--clear bilaterally, no respiratory distress, no accessory muscle use. Abdomen--normal bowel sounds and soft. Extremities--no cyanosis or clubbing. No edema. Dermatologic--right lower extremity erythematous rash Neurologic--cranial nerves II through XII grossly intact. Rheumatologic--normal range of motion. Psychiatric--normal affect. Results & Data Results & Data Vital Signs (Past 12 Hours) Vital Signs Temp Pulse Pulse Resp BP Pulse Ox O2 Del Method 09/22/23 11:22 98.4 F 77 15 124/89 95 Room Air 09/22/23 06:13 99.0 F 79 18 96/57 L 93 Room Air 09/22/23 02:28 87 09/22/23 01:22 98.1 F 77 18 103/64 97 Room Air PG Care Time/CCT Total # of Minutes Spent Total Time Spent with Patient: Total time spent is greater than 50% in coordination of care (as documented) at patient's floor/unit and/or counseling patient: Coding Level of Care Code 89623 SUB INP/OBS CARE 2/35MIN Diagnoses Sepsis A41.9 Cellulitis of right lower extremity L03.115 Hypotension I95.9 Acute kidney injury N17.9 Chest pressure R07.89 Lower extremity edema R60.0 Hyponatremia E87.1 Diabetes mellitus, type 2 E11.9 History of deep venous thrombosis Z86.718 Elevated troponin R79.89 Acute on chronic heart failure with preserved ejection fraction I50.33 Time Spent (min) 35
[2023-09-22] MEDS: TORSEMIDE 20 MG TAB PO SCH (13:27)
--- NOTE | 2023-09-22 15:08 | XCELERA ---
[id number] \\[email or web address]_[email or web address]\[id number]
--- NOTE | 2023-09-22 16:11 | Electrocardiogram Report ---
Test Reason : Blood Pressure : / mmHG Vent. Rate : 070 BPM Atrial Rate : 070 BPM P-R Int : 000 ms QRS Dur : 168 ms QT Int : 450 ms P-R-T Axes : 058 007 124 degrees QTc Int : 486 ms Ventricular-paced rhythm with frequent AV dual-paced complexes Abnormal ECG When compared with ECG of 31-DEC-2022 12:46, (unconfirmed) Vent. rate has decreased BY 4 BPM Confirmed by William Galeano ([id number]) on 09/22/2023 4:10:54 PM Referred By: REFERRED SELF Confirmed By:William Galeano
--- NOTE | 2023-09-22 16:22 | Electrocardiogram Report ---
Test Reason : Blood Pressure : / mmHG Vent. Rate : 077 BPM Atrial Rate : 077 BPM P-R Int : 202 ms QRS Dur : 166 ms QT Int : 416 ms P-R-T Axes : 087 -03 097 degrees QTc Int : 470 ms Atrial-sensed ventricular-paced rhythm Abnormal ECG When compared with ECG of 21-SEP-2023 15:45, (unconfirmed) Vent. rate has increased BY 7 BPM Confirmed by William Galeano ([id number]) on 09/22/2023 4:22:10 PM Referred By: REFERRED SELF Confirmed By:William Galeano
[2023-09-22] MEDS: DAPTOmycin 400 MG in SYRINGE 0 ML IV SCH (20:36)
[2023-09-22] MEDS: cefTRIAXone SODIUM 2,000 MG in DEXTROSE 5 % MINI-B 50 ML IV SCH (20:36)
[2023-09-22] MEDS: traMADol HCL 50 MG TABLET PO PRN (20:44)
[2023-09-23 06:14] LABS: Basophils # (auto) 0.06 K/uL (0.00-0.20); Basophils % (auto) 0.8 %; Eosinophils # (auto) 0.19 K/uL (0.00-0.50); Eosinophils % (auto) 2.6 %; Hematocrit (blood only) 32.7 % (37.0-47.0); Hemoglobin 10.4 g/dl (12.0-16.0); Immature Granulocytes # (auto) 0.03 K/uL (0.01-0.20); Immature Granulocytes % (auto) 0.4 %; Lymphocytes % (auto) 19.2 %; Mean Corpuscular Hemoglobin 31.4 pg (25.0-34.0); Mean Corpuscular Hgb Conc 31.8 g/dL (32.0-36.0); Mean Corpuscular Volume 98.8 fL (80.0-100.0); Mean Platelet Volume 9.5 fL (9.4-12.4); Monocytes # (auto) 1.06 K/uL (0.11-0.59); Monocytes % (auto) 14.5 %; Neutrophils # (auto) 4.55 K/uL (1.40-6.50); Neutrophils % (auto) 62.5 %; Platelet Count 163 K/uL (130-400); RDW Coefficient of Variation 13.9 % (11.5-14.5); Red Blood Count 3.31 M/uL (4.20-5.40); White Blood Count 7.29 K/ul (4.8-10.8)
[2023-09-23 06:32] LABS: BUN Creatinine Ratio 23.6 (10-20); C Reactive Protein 15.96 mg/dl (0-0.5); Calcium 9.8 mg/dl (8.6-10.3); Creatinine Clr Calc Pharmacy 48.1 ml/min; Est GFR (African American) 40.5 ml/min; Est GFR (Non-African American) 34.9 ml/min; Potassium 4.8 mmol/L (3.5-5.1)
[2023-09-23] MEDS ORDERED: TORSEMIDE 10 MG TAB PO SCH (09:00)
--- NOTE | 2023-09-23 12:05 | Hospitalist Progress Note ---
Date of Service September 23, 2023 Assessment & Plan (1) Sepsis: Plan: Sepsis POA Sepsis secondary to right lower extremity cellulitis, associated with hypotension. Present on admission Resolving following IV fluids, IV antibiotics Cultures remain negative. (2) Cellulitis of right lower extremity: Plan: Patient admitted to the hospital on account of worsening left lower extremity redness and swelling, failed outpatient management. One episode of low-grade fever at home on Saturday 09/16 Patient reports the erythema in her left lower extremity became worse after Wednesday Received a dose of daptomycin in the ED, transition to IV Rocephin Continue for now Cultures negative so far. Area of erythema has been marked off to monitor for changes, some improvement in the area of erythema Continue antibiotics Hopefully transition to p.o. antibiotic prior to discharge tomorrow. (3) Hypotension: Plan: Now resolved Will resume her home blood pressure medicines. (4) Acute kidney injury: Plan: Improving KARINA, stable creatinine, continue to hold losartan Avoid nephrotoxic's. (5) Osteoarthritis: Plan: CT showed evidence of severe right hip osteoarthritis Pain under fair control. (6) Chest pressure: Plan: Chest pressure has resolved CXR with pulmonary vascular congestion/hypoinflation BNP elevated at 192 Troponin elevated at 251--> 229; trend q6h x 2 Clinically, patient denies chest pain/pleuritic CP EKG revealed ventricularly paced rhythm with frequent AV dual placed complexes at 70 bpm; QTc 486 Last echo on 12/15/2022 revealed LV EF at 55% Most recent cardiology note in April 2023, does mention gradual decline in exercise tolerance over the years (NYHA class III HF equivalent symptoms) Echocardiogram essentially within normal limits (7) Lower extremity edema: Plan: Continue torsemide 20 mg p.o. daily for now (8) Hyponatremia: Plan: Mild; Na 132 May be secondary to hypervolemia; recheck after diuresis Follow a.m. BMP (9) Diabetes mellitus, type 2: Plan: Last A1c 5.8% on 03/19/2023 Hx of diabetes Not currently on home medications Diet controlled but now AM A1c (10) History of deep venous thrombosis: Plan: Continue apixaban (11) Elevated troponin: (12) Acute on chronic heart failure with preserved ejection fraction: Plan Disposition: Continue to monitor Full code AHA diet VTE PPx: On Eliquis Admission and Anticipated Discharge Date Admission Date: September 21, 2023 Subjective Patient seen and examined today, denies any new complaints, tolerating diet. Review of Systems Review of Systems: All systems reviewed are negative, apart from the ones contained in the history. Physical Exam Physical Exam: The patient is awake, alert and oriented 3, well developed and well nourished, normocephalic and atraumatic, lying in bed and in no acute distress. HEENT--PERRL, EOMI, mucous membranes and oropharynx mildly dry Neck--supple. No JVD. No bruits. Thyroid normal, trachea midline, no adenopathy. Heart--normal S1 and S2. No murmurs, rubs or gallops. Lungs--clear bilaterally, no respiratory distress, no accessory muscle use. Abdomen--normal bowel sounds and soft. Extremities--no cyanosis or clubbing. No edema. Dermatologic--right lower extremity erythematous rash Neurologic--cranial nerves II through XII grossly intact. Rheumatologic--normal range of motion. Psychiatric--normal affect. Results & Data Results & Data Vital Signs (Past 12 Hours) Vital Signs Temp Pulse Resp BP Pulse Ox O2 Del Method 09/23/23 11:44 98.1 F 74 16 159/71 H 97 Room Air 09/23/23 07:32 98.8 F 77 16 140/62 93 Room Air 09/23/23 03:10 98.2 F 72 18 127/73 94 Room Air PG Care Time/CCT Total # of Minutes Spent Total Time Spent with Patient: Total time spent is greater than 50% in coordination of care (as documented) at patient's floor/unit and/or counseling patient: Coding Level of Care Code 91181 SUB INP/OBS CARE 2/35MIN Diagnoses Sepsis A41.9 Cellulitis of right lower extremity L03.115 Hypotension I95.9 Acute kidney injury N17.9 Osteoarthritis M19.90 Chest pressure R07.89 Lower extremity edema R60.0 Hyponatremia E87.1 Diabetes mellitus, type 2 E11.9 History of deep venous thrombosis Z86.718 Elevated troponin R79.89 Acute on chronic heart failure with preserved ejection fraction I50.33 Time Spent (min) 35
[2023-09-24 08:38] LABS: Basophils # (auto) 0.06 K/uL (0.00-0.20); Basophils % (auto) 0.6 %; Eosinophils # (auto) 0.21 K/uL (0.00-0.50); Eosinophils % (auto) 2.1 %; Hematocrit (blood only) 35.2 % (37.0-47.0); Hemoglobin 11.3 g/dl (12.0-16.0); Immature Granulocytes # (auto) 0.06 K/uL (0.01-0.20); Immature Granulocytes % (auto) 0.6 %; Lymphocytes # (auto) 1.47 K/uL (1.20-3.40); Mean Corpuscular Hemoglobin 31.4 pg (25.0-34.0); Mean Corpuscular Hgb Conc 32.1 g/dL (32.0-36.0); Mean Corpuscular Volume 97.8 fL (80.0-100.0); Mean Platelet Volume 9.4 fL (9.4-12.4); Monocytes # (auto) 1.13 K/uL (0.11-0.59); Monocytes % (auto) 11.6 %; Neutrophils # (auto) 6.85 K/uL (1.40-6.50); Neutrophils % (auto) 70.1 %; Platelet Count 189 K/uL (130-400); RDW Coefficient of Variation 13.7 % (11.5-14.5); RDW Standard Deviation 49.4 fL (36.4-46.3); White Blood Count 9.78 K/ul (4.8-10.8)
[2023-09-24 08:51] LABS: BUN Creatinine Ratio 24.2 (10-20); C Reactive Protein 18.18 mg/dl (0-0.5); Calcium 9.3 mg/dl (8.6-10.3); Est GFR (African American) 50.5 ml/min; Est GFR (Non-African American) 43.6 ml/min; Potassium 4.1 mmol/L (3.5-5.1)
--- NOTE | 2023-09-24 11:28 | Discharge Summary ---
Date of Service September 24, 2023 Admission HPI Per Admitting Provider Jill is a 78-year-old female with PMH of T2DM, inflammatory polyarthropathy, pacemaker, urge and stress incontinence, complete heart block, DVT, multiple sclerosis, and CKD stage IIIa. She presented for hypotension of 88/50 at her PCPs office on 09/20, as well as increased fatigue, dizziness, and near syncope. Patient reports that she measures her blood pressure at home and is normally around 120/70, however the past 3 days it has been around 87/43. She also reports that she has had no energy over the last 3 months, with an acute worsening last week. Patient developed a low-grade fever (99 F) and chills on Saturday 09/16. She also reports that she had trouble moving her legs Wednesday night, and at one point had to slide to the floor with her back against the wall. No recent falls, fainting, or injury/trauma. Patient reports that she took all of her regular morning medications today except diuretic (as she was concerned that it would cause her blood pressure to decrease). No recent change in medications. She does note her legs have increased pain and swelling over the past week, and she first noticed the erythematous rash on her right lower extremity after Wednesday. 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 No sick contacts. Patient has not been taking any additional medications for her fever/chills/pain. She has not been eating or drinking well the past week; reports she had only toast on Wednesday, and some chicken on Wednesday. Of note, the patient does endorse constant chest pressure that has been ongoing over the past month, which patient attributes to being exhausted. Patient is hypertensive at 141/64 at time of admission; vitals otherwise stable. ED course: Daptomycin 575 mg IV Rocephin 1000 mg IV ROS: Patient endorses fatigue, chills, lightheadedness, dizziness (head is spinning), constant BANERJEE x 3 weeks, low-grade fever (on Wednesday night), chest heaviness, chest palpitations, productive cough, nausea, projectile vomiting on wednesday night, increased episodes of urinary incontinence (ongoing problem), and swelling/pain in the legs b/l. Patient denies chest pain, pleuritic CP, abdominal pain, SOB at rest, hematemesis, changes in urinary/bowel habits, burning with urination, blood in urine/stool, or numbness/tingling in the legs. Principal Diagnosis cellulitis Discharge Exam The patient is awake, alert and oriented 3, well developed and well nourished, normocephalic and atraumatic, lying in bed and in no acute distress. HEENT--PERRL, EOMI, mucous membranes and oropharynx mildly dry Neck--supple. No JVD. No bruits. Thyroid normal, trachea midline, no adenopathy. Heart--normal S1 and S2. No murmurs, rubs or gallops. Lungs--clear bilaterally, no respiratory distress, no accessory muscle use. Abdomen--normal bowel sounds and soft. Extremities--no cyanosis or clubbing. No edema. Dermatologic--right lower extremity erythematous rash Neurologic--cranial nerves II through XII grossly intact. Rheumatologic--normal range of motion. Psychiatric--normal affect. Discharge Data Allergies Allergy/AdvReac Type Severity Reaction Status Date / Time mirabegron [From Myrbetriq] Allergy Severe Facial Verified 09/21/23 18:35 swelling pineapple Allergy Severe RESPIRATORY Verified 09/21/23 18:35 DISTRESS chlorhexidine Allergy Intermediate red rash Verified 09/21/23 18:35 and itching gabapentin Allergy Intermediate swelling Verified 09/21/23 18:35 hydrochlorothiazide AdvReac Severe decreased Verified 09/21/23 18:35 kidney function celecoxib AdvReac Intermediate constant Verified 09/21/23 18:35 chest pain carpet glue Allergy Severe Unknown Uncoded 09/21/23 18:35 Ordered Studies 09/21/23 16:06 CT head/brain wo con Stat 09/21/23 16:07 CT cervical spine wo con Stat 09/21/23 16:43 CT abd pelvis wo con Stat Hospital Course (1) Sepsis: Sepsis POA Sepsis secondary to right lower extremity cellulitis, associated with hypotension. Present on admission Resolved following IV fluids, IV antibiotics Cultures remain negative. (2) Cellulitis of right lower extremity: Patient admitted to the hospital on account of worsening left lower extremity redness and swelling, failed outpatient management. One episode of low-grade fever at home on Saturday 09/16 Patient reports the erythema in her left lower extremity became worse after Wednesday Received a dose of daptomycin in the ED, transition to IV Rocephin Continue for now Cultures negative so far. Area of erythema has been marked off to monitor for changes, some improvement in the area of erythema Continue antibiotics Transition to p.o. cephalexin 500 mg 4 times daily for for 7 more days (3) Hypotension: Now resolved Will resume her home blood pressure medicines. (4) Acute kidney injury: Improving KARINA, stable creatinine, continue to hold losartan Avoid nephrotoxic's. (5) Osteoarthritis: CT showed evidence of severe right hip osteoarthritis Pain under fair control. (6) Chest pressure: Chest pressure has resolved CXR with pulmonary vascular congestion/hypoinflation BNP elevated at 192 Troponin elevated at 251--> 229; trend q6h x 2 Clinically, patient denies chest pain/pleuritic CP EKG revealed ventricularly paced rhythm with frequent AV dual placed complexes at 70 bpm; QTc 486 Last echo on 12/15/2022 revealed LV EF at 55% Most recent cardiology note in April 2023, does mention gradual decline in exercise tolerance over the years (NYHA class III HF equivalent symptoms) Echocardiogram essentially within normal limits (7) Lower extremity edema: Continue torsemide 20 mg p.o. daily for now (8) Hyponatremia: Resolved May be secondary to hypervolemia; recheck after diuresis Follow a.m. BMP (9) Diabetes mellitus, type 2: Last A1c 5.8% on 03/19/2023 Hx of diabetes Not currently on home medications Diet controlled but now AM A1c (10) History of deep venous thrombosis: Continue apixaban (11) Elevated troponin: (12) Acute on chronic heart failure with preserved ejection fraction: Plan Disposition: Discharged to [facility] Full code AHA diet VTE PPx: On Eliquis Total Time Total Time Spent Total Time Spent (In Minutes): 35 Discharge Plan Discharge Items Patient Disposition: Transfer Long Term Fac Reason For Visit: HYPOTENSION Discharge Diagnosis: Lower extremity cellulitis, CHF Activity: Resume your previous activity Non-emergency contact: Primary Care Provider Call non-emergency contact if: you have any medication questions Follow-up/Referrals: Amy Sharpe DO [Primary Care Provider] - 10/04/23 9:20 am Diet: Regular Addtl Attending Provider Instructions: please make appointment to follow up with your PCP Pending Studies at Discharge: No Stand-Alone Forms: My [facility] Skilled Items Patient informed of condition?: Yes DNR: No Discharge Level of Care: Skilled Communicable Disease: No Discharge Prognosis: Improving Lines: None Urinary Catheter: No Medications and DC Order Prescriptions: New cephalexin 500 mg capsule 500 mg PO QID 7 Days Qty: 28 0RF Continued torsemide 20 mg tablet 10 - 20 mg PO DIRECTED Rx Instructions: PER PT "TAKES 10 MG Q OTHER DAY, WHEN NEEDED WILL TAKE 20 MG, IF SWELLING INCREASES". fesoterodine [Toviaz] 4 mg tablet extended release 24 hr 4 mg PO DAILY Qty: 90 3RF carvedilol 25 mg tablet 25 mg PO BID Qty: 180 3RF verapamil 120 mg capsule,ext rel. pellets 24 hr 120 mg PO DAILY Qty: 90 3RF sertraline 100 mg tablet 100 mg PO QAM Qty: 90 3RF Eliquis 5 mg tablet 5 mg PO BID Qty: 180 3RF prednisone 5 mg tablet 5 mg PO QAM Qty: 90 1RF simvastatin 10 mg tablet 10 mg PO QPM Qty: 90 1RF tramadol 50 mg tablet 100 mg PO Q6H PRN (Reason: Pain) Qty: 200 0RF Rx Instructions: PER PT "TAKE Q6H EVERY DAY, AROUND THE CLOCK, OTHERWISE I CAN'T MOVE AROUND". acetaminophen [Tylenol 8 Hour] 650 mg tablet extended release 650 mg PO Q12H PRN (Reason: Pain) cholecalciferol (vitamin D3) 2,000 unit tablet 2,000 units PO DAILY docusate sodium 100 mg capsule 100 mg PO BID turmeric 400 mg Capsule 400 mg PO DAILY losartan 100 mg tablet 50 mg PO QPM Rx Instructions: PER PT "HOLDING DOSE FOR 09/20 D/T LOW B/P". Discharge Orders: Discharge Order (Routine); Ordered 09/24/23 Ordered By: Oz Patterson Admission Data Admit Date/Time: 09/21/23 20:02 Attending Provider: Oz Patterson Admit Provider: Bruno Whipple Primary Care Provider: Amy Sharpe Other Providers: IRB Approved Study,[facility]; [facility] Coding Level of Care Code 90715 INP/OBS DISCH >30 MIN Diagnoses Sepsis A41.9 Cellulitis of right lower extremity L03.115 Hypotension I95.9 Acute kidney injury N17.9 Osteoarthritis M19.90 Chest pressure R07.89 Lower extremity edema R60.0 Hyponatremia E87.1 Diabetes mellitus, type 2 E11.9 History of deep venous thrombosis Z86.718 Elevated troponin R79.89 Acute on chronic heart failure with preserved ejection fraction I50.33 Time Spent (min) 35
== END 2023-09-24 15:44 | DRG 871 ==
LOC: ED 15:25 → SUATTDRO 20:02 → EDINP 20:02 → 2W 22:59
DX: Z79.01 Long term (current) use of anticoagulants; I95.9 Hypotension, unspecified; E11.22 Type 2 diabetes mellitus with diabetic chronic kidney disease; I50.33 Acute on chronic diastolic (congestive) heart failure; N17.9 Acute kidney failure, unspecified; N39.46 Mixed incontinence; Z95.0 Presence of cardiac pacemaker; A41.9 Sepsis, unspecified organism; I13.0 Hypertensive heart and chronic kidney disease with heart failure and stage 1 through stage 4 chronic kidney disease, or unspecified chronic kidney disease; Z86.718 Personal history of other venous thrombosis and embolism; I44.2 Atrioventricular block, complete; N18.31 Chronic kidney disease, stage 3a; L03.115 Cellulitis of right lower limb; Z98.1 Arthrodesis status; M16.11 Unilateral primary osteoarthritis, right hip; E87.1 Hypo-osmolality and hyponatremia